=== PATIENT | male | born 1950 | race Caucasian/White ===

== ENCOUNTER → 2016-04-04 | Outpatient (CLI) | payer OTHER ==
[~2016-04-04] MED LIST: GADOBUTROL 15 MMOL/15 ML (GADAVIST) VIAL IV ONE
[2016-04-04 12:11] LABS: BLOOD UREA NITROGEN 18 MG/DL (7-18); BUN/CREATININE RATIO 19; CREATININE SERUM 0.95 MG/DL (0.60-1.30); GFR ESTIMATED > 60
--- NOTE | 2016-04-04 19:06 | Diagnostic Imaging Report ---
PROCEDURE: MR imaging of the brain with and without contrast. TECHNIQUE: Multiplanar, multisequence MR imaging of the brain was performed with and without contrast. INDICATION: Right-sided headache. 11 mL of Gadovist is administered intravenously. FINDINGS: There is no diffusion restriction to suggest an acute infarct or other diffusion abnormality. The brain parenchyma demonstrates mild periventricular and deep white matter T2 hyperintense lesions without mass effect and with no postcontrast enhancement. This is commonly seen at the patient's age and is likely secondary to chronic microvascular ischemic changes. There is no hydrocephalus. No extra-axial fluid collection seen. The central vascular flow-voids are preserved. The internal auditory canal and inner ear structures appear within normal limits. The pituitary gland is normal in size. No hypothalamic or pineal region mass. IMPRESSION: Relatively mild white matter findings described are likely secondary to chronic microvascular ischemic changes. No acute infarct. No enhancing mass. Dictated by: Dictated on workstation # [id number]
== END ==
LOC: RAD 11:17
PROVIDERS: ATTEND Family Medicine
DX: R51 Headache (principal)
CPT/HCPCS: 36415; 70553; 82565; 84520

== ENCOUNTER 2017-09-02 08:15 | Outpatient (CLI) | payer MEDICARE, OTHER ==
[~2017-09-02] VITALS: Ht 180.3 cm; Wt 96.6 kg
[2017-09-02 08:26] VITALS: BP 116/71
[2017-09-02 09:06] LABS: BASOPHILS % (AUTO) 0 % (0-10); EOSINOPHILS # (AUTO) 0.1 10^3/uL (0.0-0.3); EOSINOPHILS % (AUTO) 2 % (0-10); HEMATOCRIT 42 % (40-54); HEMOGLOBIN 13.9 G/DL (13.3-17.7); LYMPHOCYTES # (AUTO) 1.6 X 10^3 (1.0-4.0); LYMPHOCYTES % (AUTO) 29 % (12-44); MEAN CORPUSCULAR HEMOGLOBIN 30 PG (25-34); MEAN CORPUSCULAR HGB CONC 33 G/DL (32-36); MEAN CORPUSCULAR VOLUME 90 FL (80-99); MEAN PLATELET VOLUME 9.6 FL (7.4-10.4); MONOCYTES # (AUTO) 0.6 X 10^3 (0.0-1.0); MONOCYTES % (AUTO) 10 % (0-12); NEUTROPHILS # (AUTO) 3.3 X 10^3 (1.8-7.8); NEUTROPHILS % (AUTO) 59 % (42-75); PLATELET COUNT 225 10^3/uL (130-400); RED BLOOD COUNT 4.64 10^6/uL (4.35-5.85); RED CELL DISTRIBUTION WIDTH 14.5 % (10.0-14.5); WHITE BLOOD COUNT 5.6 10^3/uL (4.3-11.0)
[2017-09-02] MEDS ORDERED: CARV12.53 PO (09:11)
[2017-09-02] MEDS ORDERED: INDO50CA PO (09:11)
[2017-09-02] MEDS ORDERED: RIVA20TA PO (09:11)
[2017-09-02] MEDS ORDERED: LISI-552 PO (09:11)
[2017-09-02] MEDS ORDERED: CANA100T PO (09:11)
[2017-09-02] MEDS ORDERED: MULT1CAP27 PO (09:11)
[2017-09-02] MEDS ORDERED: SIMV20TA3 PO (09:11)
[2017-09-02] MEDS ORDERED: SPIR25TA3 PO (09:11)
[2017-09-02] MEDS ORDERED: ASPI-586 PO (09:11)
[2017-09-02] MEDS ORDERED: ANTI1CAP2 PO (09:11)
[2017-09-02] MEDS ORDERED: METF10002 PO (09:11)
[2017-09-02 09:26] LABS: BUN/CREATININE RATIO 18; CARBON DIOXIDE 23 MMOL/L (21-32); CHLORIDE 111 MMOL/L (98-107); CREATININE SERUM 0.83 MG/DL (0.60-1.30); GFR ESTIMATED > 60; GLUCOSE 113 MG/DL (70-105); POTASSIUM 4.3 MMOL/L (3.6-5.0); SODIUM 143 MMOL/L (135-145)
--- NOTE | 2017-09-02 13:30 | Diagnostic Imaging Report ---
INDICATION: Preoperative evaluation prior to bilateral temporal lesion excision. TECHNIQUE: Two-view chest at 09:18 a.m. CORRELATION STUDY: None. FINDINGS: Heart size is borderline enlarged. Mild calcification of the thoracic aorta. Vasculature within normal limits. Lung rutledge are slightly hyperinflated but overall clear. There does appear to be very slight right lung volume loss with some atelectasis at the right lung base. Bridging osteophytes and degenerative changes in the thoracic spine. IMPRESSION: 1. No radiographic evidence for acute abnormality of the chest. Lung rutledge are slightly hyperinflated. Exception is slight atelectasis suggested about the right middle lobe. Etiology indeterminate. However, this does appear to be changed from prior CT imaging of 2012. Central obstructive process while considered less likely is not excluded. Short-term follow-up two-view chest imaging recommended. Dictated by: Dictated on workstation # [id number]
[2017-09-05] MEDS ORDERED: CEPH-507 PO (11:54)
[2017-09-05] MEDS ORDERED: HYDR-3812 PO (11:54)
[2017-09-05] MEDS ORDERED: MUPI1OIN5 NS (11:54)
== END 2017-09-02 09:00 | disposition home or self-care (01) ==
LOC: PREOP 08:15
PROVIDERS: ATTEND Otolaryngology Otolaryngology/Facial Plastic Surgery
DX: Z01.818 Encounter for other preprocedural examination (principal)
CPT/HCPCS: 36415; 71046; 80048; 85025; 87081; 93005

== ENCOUNTER → 2017-10-15 | Outpatient (CLI) | payer MEDICARE, OTHER ==
[~2017-10-15] MED LIST changes: +ANTI1CAP2 PO; +ASPI-586 PO; +CANA100T PO; +CARV12.53 PO; +CEPH-507 PO; -GADOBUTROL 15 MMOL/15 ML (GADAVIST) VIAL IV ONE; +HYDR-3812 PO; +INDO50CA11 PO; +LISI-552 PO; +METF10002 PO; +MULT1CAP27 PO; +MUPI1OIN5 NS; +RIVA20TA PO; +SIMV20TA3 PO; +SPIR25TA5 PO
--- NOTE | 2017-10-15 17:22 | Diagnostic Imaging Report ---
INDICATION: Atelectatic changes in right middle lobe seen on previous chest of 09/02/2017, follow-up study. PA and lateral chest obtained. Heart and mediastinal silhouette are normal in appearance. The lungs appear clear. There is no focal infiltrate, pneumothorax, or pleural fluid. Density in the right middle lobe anteriorly is unchanged and may be due to a prominent fat pad. IMPRESSION: No acute process in the chest. Dictated by: Dictated on workstation # [id number]
== END ==
LOC: RAD 15:52
PROVIDERS: ATTEND Otolaryngology Otolaryngology/Facial Plastic Surgery
DX: J98.11 Atelectasis (principal)
CPT/HCPCS: 71046

== ENCOUNTER → 2017-10-21 | Outpatient (CLI) | payer MEDICARE, OTHER ==
[~2017-10-21] MED LIST changes: +BARIUM SUSPENSION 2.1% (VANILLA SILQ) 450 ML PO ONE; +CATHETER FLUSH 10 ML SYR IV PRN; +CATHETER FLUSH 10 ML SYR IV SCH; +IOHEXOL 350 MG/ML 100 ML (OMNIPAQUE 350) VIAL IV ONE; +NS 100 ML (IVPB) BAG IV ONE
[2017-10-21 12:12] LABS: BUN/CREATININE RATIO 21; CREATININE SERUM 0.72 MG/DL (0.60-1.30); GFR ESTIMATED > 60
--- NOTE | 2017-10-21 12:56 | Diagnostic Imaging Report ---
PROCEDURE: CT abdomen and pelvis with contrast. TECHNIQUE: Multiple contiguous axial images were obtained through the abdomen and pelvis after administration of intravenous contrast. INDICATION: Prostate carcinoma. Comparison is made with prior CT from 06/06/2011. FINDINGS: The lung bases are clear. No discrete liver mass is identified. The gallbladder is unremarkable. The pancreas and spleen are unremarkable. No adrenal mass is identified. Multiple nonobstructing calculi in the left kidney are seen, largest approximately 6 mm. No hydronephrosis is identified. No ureteral calculi are detected. Aorta is non-aneurysmal. There appears to be sigmoid diverticulosis without evidence of acute diverticulitis. The bladder is decompressed. Prostate is mildly enlarged but no discrete mass is seen. No pelvic lymphadenopathy is identified. Bony structures are unremarkable. No definite osteoblastic lesion is seen. IMPRESSION: 1. Nonobstructing left nephrolithiasis. 2. No evidence of abdominal or pelvic lymphadenopathy or metastatic disease. 3. Uncomplicated diverticulosis. Dictated by: Dictated on workstation # [id number]
--- NOTE | 2017-10-21 15:56 | Diagnostic Imaging Report ---
INDICATION: Prostate carcinoma. TECHNIQUE: Patient was administered 25.4 mCi technetium 99m MDP intravenously and whole-body imaging was performed after a three-hour delay. COMPARISON: No prior bone scans are available for comparison. FINDINGS: Normal uptake of activity by the axial and appendicular skeleton is seen. There is uptake by both kidneys with excretion into the urinary bladder. There is some uptake involving the left ankle. Patient reportedly had a recent ankle injury. No abnormal foci are seen to suggest osseous metastatic disease. IMPRESSION: No scintigraphic evidence of osseous metastatic disease. Dictated by: Dictated on workstation # [id number]
== END ==
LOC: CARD 11:43
PROVIDERS: ATTEND Urology
DX: C61 Malignant neoplasm of prostate (principal); N20.0 Calculus of kidney; K57.30 Diverticulosis of large intestine without perforation or abscess without bleeding
CPT/HCPCS: 36415; 74177; 78306; 82565; 84520

== ENCOUNTER 2017-11-28 08:25 | Outpatient (RCR) | payer MEDICARE, OTHER ==
[~2017-11-28 08:25] MED LIST changes: -BARIUM SUSPENSION 2.1% (VANILLA SILQ) 450 ML PO ONE; -CATHETER FLUSH 10 ML SYR IV PRN; -CATHETER FLUSH 10 ML SYR IV SCH; -IOHEXOL 350 MG/ML 100 ML (OMNIPAQUE 350) VIAL IV ONE; +METF-399 PO; -METF10002 PO; -NS 100 ML (IVPB) BAG IV ONE
== END 2017-12-14 | disposition home or self-care (01) ==
LOC: ONC 08:25
PROVIDERS: ATTEND Radiology Radiation Oncology
DX: C61 Malignant neoplasm of prostate (principal)
CPT/HCPCS: 76873; 99205

== ENCOUNTER 2017-12-25 09:52 | Outpatient (CLI) | payer MEDICARE, OTHER ==
[~2017-12-25] VITALS: Ht 180.3 cm; Wt 88.0 kg
[2017-12-25] MEDS ORDERED: RIVA20TA PO (10:09)
[2017-12-25] MEDS ORDERED: NAPR-915 PO (10:09)
[2017-12-25 10:30] VITALS: BP 107/69
== END 2017-12-25 10:20 | disposition home or self-care (01) ==
LOC: PREOP 09:52
PROVIDERS: ATTEND Urology
DX: Z01.818 Encounter for other preprocedural examination (principal)
CPT/HCPCS: 87081

== ENCOUNTER 2017-12-31 06:00 | Day surgery (SDC) | payer MEDICARE, OTHER ==
[~2017-12-31] VITALS: Ht 180.3 cm; Wt 88.0 kg
[~2017-12-31 06:00] MED LIST changes: +NAPR-915 PO
[2017-12-31 06:20] VITALS: BP 127/101
[2017-12-31] MEDS ORDERED: LEVOFLOXACIN 500 MG/100 ML IV 100 ML IV ONE (06:30)
[2017-12-31] MEDS ORDERED: LEVOFLOXACIN 500 MG/100 ML IV 100 ML ONE (06:35)
[2017-12-31] MEDS: LACTATED RINGERS 1,000 ML IV PRN ×2 (06:36→08:15)
[2017-12-31] MEDS ORDERED: SEVOFLURANE (ULTANE) 15 ML INHAL SOLN ONE ×2 (06:48→08:49)
[2017-12-31] MEDS ORDERED: proPOfol 200 MG/20 ML (DIPRIVAN) VIAL IV ONE (06:48)
[2017-12-31] MEDS ORDERED: fentaNYL INJECTION 100 MCG/2 ML AMP ONE (06:48)
[2017-12-31] MEDS ORDERED: LIDOCAINE PF 2% 5 ML (XYLOCAINE) VIAL ONE (06:48)
[2017-12-31] MEDS ORDERED: ONDANSETRON 4 MG/2 ML (SDV) Z0FRAN ONE (06:48)
[2017-12-31] MEDS ORDERED: MIDAZOLAM 2 MG/2 ML (VERSED) VIAL ONE (06:49)
--- NOTE | 2017-12-31 07:16 | Progress Note-Pre Operative ---
Pre-Operative Progress Note H&P Reviewed The H&P was reviewed, patient examined and no changes noted. Date Seen by Provider: Dec 31, 2017 Time Seen by Provider: 07:16 Date H&P Reviewed: Dec 31, 2017 Time H&P Reviewed: 07:16 Pre-Operative Diagnosis: CA PROSTATE JULIETTE SHAFFER MD Dec 31, 2017 7:16 am
--- NOTE | 2017-12-31 07:18 | Progress Note-Post Operative ---
Post-Operative Progess Note Surgeon (s)/Machine Welder (s) Surgeon BRYAN MARTINEZ M.D, JULIETTE SHAFFER MD Machine Welder: NONE Pre-Operative Diagnosis CA PROSTATE Post-Operative Diagnosis SAME Procedure & Operative Findings Date of Procedure 12/31/17 Procedure Performed/Findings BRACHYTHERAPY, SPACE OAR, CYSTOGRAM Anesthesia Type GENERAL Estimated Blood Loss Estimated blood loss (mL): NEGLIGBLE Specimens/Packing Specimens Removed NONE Packing: NONE JULIETTE SHAFFER MD Dec 31, 2017 7:18 am
--- NOTE | 2017-12-31 07:22 | Discharge Inst-Urology ---
Discharge Inst-Urology Discharge Medications New, Converted, or Re-newed RX: RX on Chart Patient Instructions/Follow Up Plan Patient to come to office Friday 9am to [facility]. Please make appointment to been seen in office in 2 weeks. Friday, if no bleeding, may resume Xarelto Showers, no bath Keep bowels soft and moving Increase oral fluids for 48 hours and then as needed. Diet and Activity as tolerated. If questions or concerns contact your physician Or seek help at emergency department. JULIETTE SHAFFER MD Dec 31, 2017 7:22 am
[2017-12-31] MEDS ORDERED: ROCURONIUM 10 MG/ML 5 ML SYRINGE IV ONE (08:23)
[2017-12-31] MEDS ORDERED: PHENYLEPHRINE 100 MCG/ML 10 ML (ANESTHESIA) SYR ONE (08:23)
[2017-12-31] MEDS ORDERED: LACTATED RINGERS 1,000 ML IV ONE (08:49)
[2017-12-31] MEDS ORDERED: CIPR-225 PO (09:33)
[2017-12-31] MEDS ORDERED: PHEN-640 PO (09:33)
[2017-12-31] MEDS ORDERED: HYDR-3870 PO (09:33)
[2017-12-31] MEDS ORDERED: MEPERIDINE (DEMEROL) INJ 50 MG/ML IVP ONE (09:45)
[2017-12-31] MEDS ORDERED: ONDANSETRON 4 MG/2 ML (SDV) Z0FRAN IVP PRN (09:45)
[2017-12-31] MEDS ORDERED: morphine INJ 10 MG/ML 1ML (SYR OR VIAL) IVP ONE (09:45)
--- NOTE | 2017-12-31 10:27 | Consultation-Cardiology ---
HPI-Cardiology Cardiology Consultation: Date of Consultation 12/31/17 Date of Admission Attending Physician Kaushik Lewis MD Admitting Physician Johnathan Kelly DO Consulting Physician Dimple LO MD HPI: Time Seen by a Provider: 10:24 Chief Complaint: Atrial fibrillation This is a 67-year-old gentleman who has history of chronic atrial fibrillation on carvedilol and Xarelto. The patient also has history of hypertension. Cardiology was consulted for atrial fibrillation and oral anticoagulation management. The patient underwent brachy therapy for prostate cancer today. He denies any palpitations, syncope, near-syncope, chest pain or shortness of breath. Review of Systems-Cardiology Review of Systems Constitutional: As described under HPI; No As described under HPI, No no symptoms reported, No chills, No fever, No lightheadedness Eyes: No As described under HPI, No no symptoms reported, No blindness, No blurred vision, No contact lenses, No drainage, No decreased acuity, No foreign body sensation, No pain, No vision change Ears/Nose/Throat: No As described under HPI, No no symptoms reported, No chronic hearing loss, No ear discharge, No ear pain, No nasal drainage, No ulcerations Respiratory: No no symptoms reported; As described under HPI; No As described under HPI, No cough, No orthopnea, No shortness of breath, No SOB with excertion Cardiovascular: No no symptoms reported; As described under HPI; No As described under HPI, No chest pain, No edema, No irregular heart rate, No lightheadedness, No palpitations Gastrointestinal: No no symptoms reported, No As described under HPI, No abdomen distended, No abdominal pain, No blood streaked bowels, No constipation , No diarrhea, No nausea, No vomiting, No stool coloration changes Genitourinary: No As described under HPI, No burning, No dysuria, No discharge , No frequency, No flank pain, No hematuria, No urgency Skin: No rash, No skin related problems, No ulcerations Psychiatric/Neurological: No anxiety, No depression, No seizure, No focal weakness, No syncope Hematologic: No bleeding abnormalities [id number] Hx Patient Social History Alcohol Use: Rarely Uses Recreational Drug Use: No Smoking Status: Never a Smoker Recent Foreign Travel: No Recent Infectious Disease Expo: No Immunizations Up To Date Tetanus Booster (TDap): Less than 5yrs Past Medical History PMH As described under Assessment. Allergies and Home Medications Allergies Coded Allergies: No Known Drug Allergies (Unverified , 04/04/16) Home Medications Antiox#10/Om3/Dha/Epa/Lut/Zeax 1 Each Capsule, 1 EACH PO DAILY, (Reported) Canagliflozin 100 Mg Tablet, 100 MG PO DAILY, (Reported) Carvedilol 12.5 Mg Tablet, 12.5 MG PO BID, (Reported) Ciprofloxacin HCl 500 Mg Tablet, 500 MG PO BID Prescribed by: GABRIELA KIDD on 12/31/17932 Hydrocodone/Acetaminophen 1 Each Tablet, 1-2 EACH PO Q4-6HR PRN for PAIN- MODERATE Prescribed by: GABRIELA KIDD on 12/31/17932 Lisinopril 20 Mg Tablet, 20 MG PO DAILY, (Reported) Metformin HCl 1,000 Mg Tablet, 1,000 MG PO BID, (Reported) Multivitamin 1 Each Capsule, 1 EACH PO DAILY, (Reported) Naproxen 500 Mg Tablet, 500 MG PO BID, (Reported) Phenazopyridine HCl 200 Mg Tablet, 1 TAB PO TID Prescribed by: GABRIELA KIDD on 12/31/17932 Simvastatin 20 Mg Tablet, 20 MG PO DAILY, (Reported) Spironolactone 25 Mg Tablet, 25 MG PO DAILY, (Reported) Patient Home Medication List Home Medication List Reviewed: Yes Physical Exam-Cardiology Physical Exam Vital Signs/I&O 12/31/17 12/31/17 12/31/17 12/31/17 06:20 10:30 11:00 11:30 Temp 97.3 97.8 97.3 97.0 Pulse 85 63 75 84 Resp 18 18 16 18 B/P (MAP) 127/101 (110) 125/77 132/70 120/89 Pulse Ox 98 98 97 99 O2 Delivery Room Air Room Air Room Air Room Air 12/31/17 11:30 Pulse 84 Resp 18 B/P (MAP) 120/89 Pulse Ox 99 O2 Delivery Room Air Capillary Refill : Constitutional: appears stated age; No apparent distress; well-developed, well- nourished HEENT: PERRL; No normal ENT inspection, No TMs normal, No pharynx normal, No scleral icterus (R), No scleral icterus (L), No pale conjunctivae (R), No pale conjunctivae (L), No photophobia, No TM abnormal (R), No TM abnormal (L), No pharyngeal erythema, No tonsillar exudate, No other, No discharge, No EOMI; hearing is well preserved; No hard of hearing; oral hygience is good; No ulceration, No xanthelasmas are seen Neck: No carotid bruit; carotid pulses are 2 + bilaterally Respiratory: chest is bilaterally symmetric, lungs clear to auscultation Cardiovascular: No regular rate-rhythm; irregularly irregular; No extra beats, No parasternal heave is noted, No JVD, No edema, No bradycardia, No tachycardia , No point of maximal impulse, No cardiac thrills are palpable; S1 and S2; No gallop/S3, No gallop/S4, No diastolic murmur, No systolic murmur, No friction rub, No click, No other Gastrointestinal: No tender, No soft, No round, No distended, No pulsatile mass , No organomegaly, No guarding, No rebound, No tenderness, No hernia, No mass, No audible bowel sounds, No abnormal bowel sounds, No abdominal bruits, No spleenomegaly, No other Rectal: deferred Extremities: No normal range of motion, No non-tender, No normal inspection, No pedal edema, No calf tenderness, No normal capillary refill, No pelvis stable , No calf tenderness, No inflammation, No pedal edema, No slow capillary refill , No swelling, No other, No abrasion, No clubbing, No cyanosis, No ecchymosis, No laceration, No no lower extremity edema bilateral, No significant edema, No tenderness, No wound Neurologic/Psychiatric: no motor/sensory deficits, alert, normal mood/affect, oriented x 3, power is 5/5 both on sides Skin: No rash, No ulcerations Data Review Labs Laboratory Tests 12/31/17 06:17: Glucometer 104 ECG Impression ECG Initial ECG Impression: Atrial Fibrillation A/P-Cardiology Assessment/Admission Diagnosis Chronic Atrial Fibrillation, Hypertension, Prostate Cancer,s/p brachytherapy Plan Chronic AF: Hold Xarelto till friday since high risk of bleeding for the next 48 -72 hours. Good rate control. CHADVASC score of 3 for DM, Age, and HTN. However , since high risk of bleeding, will hold Xarelto. Explained at length to the patient about the rationale for holding xarelto. He understands and agrees. Discussed with both Dr Lewis and the RN. Continue Coreg for rate control. HTN- on BB. stable in the recovery area. Systolic BP 105mmhg. Prostate cancer - defer to Dr Lewis. Thank you for your consultation. Please call me if you have any questions. Anabella Lo MD, FACP, FACC, FSCAI, FHRS, CCDS Interventional Cardiology Cardiac Electrophysiology Vascular Medicine and Endovascular Interventions Dimple LO MD Dec 31, 2017 10:27
[2017-12-31 10:30] VITALS: BP 125/77
--- NOTE | 2017-12-31 10:44 | Diagnostic Imaging Report ---
INDICATION: Brachytherapy. FINDINGS: Fluoroscopy was provided during brachytherapy. 28 seconds of fluoroscopy was utilized. Images over the midline pelvis demonstrate multiple radiation seed implants within the prostate gland. IMPRESSION: Fluoroscopy during brachytherapy. Dictated by: Dictated on workstation # [id number]
[2017-12-31 11:00] VITALS: BP 132/70
[2017-12-31 11:30] VITALS: BP 120/89
--- NOTE | 2017-12-31 14:11 | Anesthesia-General Post-Op ---
General Patient Condition Mental Status/LOC: Same as Preop Cardiovascular: Satisfactory Nausea/Vomiting: Absent Respiratory: Satisfactory Pain: Controlled Complications: Absent Post Op Complications Complications None Follow Up Care/Instructions Patient Instructions None needed. Anesthesia/Patient Condition Patient Condition Patient is doing well, no complaints, stable vital signs, no apparent adverse anesthesia problems. No complications reported per nursing. MANDY HOANG CRNA Dec 31, 2017 14:10
== END 2017-12-31 12:08 | disposition home or self-care (01) ==
LOC: SDC 06:00
PROVIDERS: ATTEND Urology
DX: C61 Malignant neoplasm of prostate (principal); I48.2 Chronic atrial fibrillation; I10 Essential (primary) hypertension; E11.9 Type 2 diabetes mellitus without complications; Z79.01 Long term (current) use of anticoagulants; Z79.899 Other long term (current) drug therapy
CPT/HCPCS: 76965; 77290; 77318; 77332; 77370; 77470; 77778; 82962; 93005

== ENCOUNTER 2018-02-02 09:48 | Outpatient (RCR) | payer MEDICARE, OTHER ==
[~2018-02-02 09:48] MED LIST changes: +CIPR-225 PO; +HYDR-3870 PO; +PHEN-640 PO
== END 2018-03-29 | disposition home or self-care (01) ==
LOC: ONC 09:48
PROVIDERS: ATTEND Radiology Radiation Oncology
DX: C61 Malignant neoplasm of prostate (principal)
CPT/HCPCS: 77290; 77331

== ENCOUNTER 2020-02-22 05:34 | Outpatient (RCR) | payer MEDICARE, OTHER ==
[~2020-02-22] VITALS: Ht 180 cm; Wt 97.7 kg
[~2020-02-22 05:34] MED LIST changes: +ACHD5005 PO; -HYDR-3812 PO; -INDO50CA11 PO; +INDO50CA82 PO; -RIVA20TA PO; +RIVA20TA2 PO; +SIMV20TA26 PO; -SIMV20TA3 PO
== END 2020-02-22 13:10 | disposition home or self-care (01) ==
LOC: PREOP 05:34
PROVIDERS: ATTEND Surgery
DX: Z01.812 Encounter for preprocedural laboratory examination (principal); K42.9 Umbilical hernia without obstruction or gangrene; Z20.828 Contact with and (suspected) exposure to other viral communicable diseases
CPT/HCPCS: 87635

== ENCOUNTER 2020-02-24 12:01 | Day surgery (SDC) | payer MEDICARE, OTHER ==
[~2020-02-24] VITALS: Ht 180 cm; Wt 97.7 kg
[2020-02-24] VITALS (12 sets, daily range): BP systolic 96–115; BP diastolic 68–86
[2020-02-24] MEDS ORDERED: ceFAZolin 2 GM IV Premixed 50 ML ONE (12:40)
[2020-02-24] MEDS ORDERED: ceFAZolin 2 GM IV Premixed 50 ML IV ONE (13:00)
[2020-02-24] MEDS ORDERED: LACTATED RINGERS 1,000 ML IV PRN (13:00)
[2020-02-24] MEDS ORDERED: SILD25TA9 PO (13:21)
[2020-02-24] MEDS ORDERED: RIVA20TA PO (13:21)
[2020-02-24] MEDS ORDERED: ASPI-999 PO (13:21)
[2020-02-24] MEDS ORDERED: TMSL.4C PO (13:21)
[2020-02-24] MEDS ORDERED: ROCURONIUM 10 MG/ML 5 ML SYRINGE IV ONE (13:38)
[2020-02-24] MEDS ORDERED: ONDANSETRON 4 MG/2 ML (SDV) Z0FRAN ONE (13:38)
[2020-02-24] MEDS ORDERED: fentaNYL INJECTION 100 MCG/2 ML AMP ONE (13:38)
[2020-02-24] MEDS ORDERED: MIDAZOLAM 2 MG/2 ML (VERSED) VIAL ONE (13:38)
[2020-02-24] MEDS ORDERED: LIDOCAINE PF 2% 5 ML (XYLOCAINE) VIAL ONE (13:38)
[2020-02-24] MEDS ORDERED: proPOfol 200 MG/20 ML (DIPRIVAN) VIAL IV ONE (13:38)
[2020-02-24] MEDS ORDERED: GLYCOPYRROLATE 0.2 MG/ML (ROBINUL) 2 ML VIAL ONE (13:39)
[2020-02-24] MEDS ORDERED: SEVOFLURANE (ULTANE) 15 ML INHAL SOLN ONE (13:39)
[2020-02-24] MEDS ORDERED: NEOSTIGMINE 3 MG/3 ML VIAL ONE (13:39)
--- NOTE | 2020-02-24 13:50 | Progress Note-Pre Operative ---
Pre-Operative Progress Note H&P Reviewed The H&P was reviewed, patient examined and no changes noted. Date Seen by Provider: Feb 24, 2020 Time Seen by Provider: 13:00 Date H&P Reviewed: Feb 24, 2020 Time H&P Reviewed: 13:00 Pre-Operative Diagnosis: reducible umbilical hernia BALTAZAR PRYOR MD Feb 24, 2020 13:50
[2020-02-24] MEDS ORDERED: HYDR-3817 PO (13:51)
--- NOTE | 2020-02-24 13:52 | Discharge Inst-Surgical ---
D/C Lap Instructions-ROYA New, Converted, or Re-Newed RX: RX on Chart Follow Up Appt in 2 weeks Activity as tolerated No driving for 24 hours No driving while on pain medications Incentive Spirometry use every 2 hours while awake Regular Diet Symptoms to Report: Fever over 101 degree F, Nausea/Vomiting Infection Signs and Symptoms to report: Increased redness, Foul odor of wound, Increased drainage Bathing instructions: May shower Operative Area Clean/Dry; Keep incision clean/dry If any problems/questions: Contact your physician or go to Emergency Room BALTAZAR PRYOR MD Feb 24, 2020 13:52
[2020-02-24] MEDS ORDERED: morphine INJ 10 MG/ML 1ML (SYR OR VIAL) IVP PRN ×2 (14:00)
[2020-02-24] MEDS ORDERED: ONDANSETRON 4 MG/2 ML (SDV) Z0FRAN IVP PRN ×2 (14:00→16:15)
[2020-02-24] MEDS ORDERED: ACETAMINOPHEN 325 MG TABLET PO PRN (14:00)
[2020-02-24] MEDS ORDERED: oxyCODONE/APAP 5/325MG (PERCOCET 5) TABLET PO PRN (14:00)
[2020-02-24] MEDS ORDERED: LIDOCAINE/EPI 1%-1:100,000 (XYLOCAINE) 20ML ONE (14:09)
[2020-02-24] MEDS ORDERED: LIDOCAINE/EPI 1%-1:200,000 (XYLOCAINE) 30 ML VIAL ONE (14:09)
[2020-02-24] MEDS ORDERED: PHENYLEPHRINE 100 MCG/ML 10 ML (ANESTHESIA) SYR ONE (15:41)
--- NOTE | 2020-02-24 16:07 | Progress Note-Post Operative ---
Post-Operative Progess Note Surgeon (s)/Customer Response Representative (s) Surgeon BALTAZAR PRYOR MD Customer Response Representative: harrison mendez DUPLICATE MAKER Pre-Operative Diagnosis reducible umbilical hernia Post-Operative Diagnosis same Procedure & Operative Findings Date of Procedure 02/24/20 Procedure Performed/Findings open umbilical hernia repair with mesh. Anesthesia Type get Estimated Blood Loss Estimated blood loss (mL): minimal Specimens/Packing Specimens Removed none BALTAZAR PRYOR MD Feb 24, 2020 16:07
--- NOTE | 2020-02-24 16:14 | Anesthesia-General Post-Op ---
General Patient Condition Mental Status/LOC: Same as Preop Cardiovascular: Satisfactory Nausea/Vomiting: Absent Respiratory: Satisfactory Pain: Controlled Complications: Absent Post Op Complications Complications None Follow Up Care/Instructions Patient Instructions None needed. Anesthesia/Patient Condition Patient Condition Patient is doing well, no complaints, stable vital signs, no apparent adverse anesthesia problems. No complications reported per nursing. RONEN FERGUSON CRNA Feb 24, 2020 16:14
[2020-02-24] MEDS ORDERED: morphine INJ 10 MG/ML 1ML (SYR OR VIAL) IVP ONE (16:15)
--- NOTE | 2020-03-07 00:01 | OPERATIVE REPORT ---
DATE OF SERVICE: 02/24/2020 ATTENDING PRIMARY CARE PHYSICIAN: Johnathan Kelly DO PREOPERATIVE DIAGNOSIS: Symptomatic reducible umbilical hernia. POSTOPERATIVE DIAGNOSIS: Symptomatic reducible umbilical hernia with the fascial defect approximately 2.5 cm in size. PROCEDURE: Open umbilical hernia repair with mesh. SURGEON: Baltazar Pryor MD. PLATE SHOP HELPER: Wes Mariee APRN ANESTHESIA: General endotracheal. ESTIMATED BLOOD LOSS: Minimal. FINDINGS: Omentum within the hernia sac. DISPOSITION: The patient tolerated the procedure well. INDICATIONS: The patient is a 69-year-old male who was referred over to us for an outpouching as well as pain in the umbilical region for the past three years. He states that over time, the lesion has grown larger in size and does cause increased discomfort. He is otherwise having normal bowel movements and eating well. DESCRIPTION OF PROCEDURE: The patient was brought to the operating room, laid supine on the table. After adequate IV pain and sedative medications and general endotracheal intubation, the abdomen was prepped and draped in standard surgical fashion. A 0.5% Marcaine with epinephrine was used to anesthetize overlying skin along the supraumbilical rim. A crescent-shaped skin incision was made using 15 blade. The subcutaneous tissue was then dissected using electrocautery. The hernia sac was then identified and completely dissected out using blunt dissection, cautery as well as Metzenbaum scissors. We proceeded with our dissection until we reached the fascia. A circumferential area was cleared off the fascia as well using the same technique. The hernia sac was then opened using Metzenbaum scissors with only omentum within the hernia sac. The hernia sac was then fully excised using electrocautery under direct visualization. A 6.4 cm round coated polypropylene mesh was then placed into the defect and sutured to the fascia in a concentric transfascial manner using interrupted 0 Prolene sutures with visualization of good hemostasis. Subcutaneous tissue was then reapproximated using 3-0 Vicryl interrupted sutures and the skin was closed using 4-0 Monocryl running subcuticular suture. Wound was then cleaned and covered with Dermabond. The umbilicus was then filled with tonsil sponges followed by sterile 4 x 4, followed by large Op-Site and an abdominal binder. The patient tolerated the procedure well. We will start IV normal pain medication as well as a clear liquid diet. Once he is tolerating clears, has good pain control with oral pain medications, ambulating well, we will discharge him home. We will also recommend no heavy lifting or exertion, especially for the first 2 weeks and then slowly incorporate lifting, exertion in a stepwise manner until he reaches six weeks. Job ID: [id number] DocumentID: [id number] Dictated Date: 03/06/2020 18:14:00 Card Puncher Date: 03/07/2020 00:00:28 Dictated By: BALTAZAR PRYOR MD
== END 2020-02-24 18:20 ==
LOC: SDC 12:01
PROVIDERS: ATTEND Surgery
DX: K42.9 Umbilical hernia without obstruction or gangrene (principal); I10 Essential (primary) hypertension; I48.91 Unspecified atrial fibrillation; E11.9 Type 2 diabetes mellitus without complications; M19.90 Unspecified osteoarthritis, unspecified site; E78.00 Pure hypercholesterolemia, unspecified; N40.0 Benign prostatic hyperplasia without lower urinary tract symptoms; Z79.84 Long term (current) use of oral hypoglycemic drugs; Z79.82 Long term (current) use of aspirin; Z79.899 Other long term (current) drug therapy; Z85.46 Personal history of malignant neoplasm of prostate; Z80.1 Family history of malignant neoplasm of trachea, bronchus and lung; Z80.49 Family history of malignant neoplasm of other genital organs
CPT/HCPCS: 49585; 82962; 87081; C1781

== ENCOUNTER 2021-10-17 13:26 | Inpatient (IN) | payer MEDICARE, OTHER ==
[~2021-10-17] VITALS: Ht 180.3 cm; Wt 91.9 kg
--- NOTE | 2021-10-17 12:11 | PM&R Post Admission Assessment ---
PM&R HP Date of Visit: Oct 17, 2021 Time of Visit: 18:30 History of Present Illness CC: Subdural hematoma s/p evaluation HPI: This is a 71yoWM clinic patient of Dr Kelly who presented to [facility] from [facility] s/p elijah holes by Dr Garber due to bilateral SDH. Xarelto was maintained and now on hold. 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 No BM x 2 weeks. No pain reported except TORREZ. PLOF was independent. Hospitalist Progress Note Note date:10/17/2021 ADMIT DATE10/09/2021 HospitalLOS: 8 days Primary admission Dx-Acute on chronic intracranial subdural hematoma Subjective: patient is awake and alert.Denies any new symptoms. Overnight he had 6 beats of V tach. Asymptomatic and remained asleep. Chief Complaint-Acute on chronic intracranial subdural hematoma HPI-Jigarvladimir Valverdetashi a 71 y.o.maleadmitted to the hospital with headache and found to have bilateral subdural hematoma. Neurosurgery was consulted and bilateral elijah holes were placed for SDH. Transferred out of ICU on 10/15. ROS Constitutional-No fever, night sweats, fatigue EYE-no blurred vision, double vision ENT-, no difficulty swallowing, no symptoms of oral candidiasis Lungs-no complaint of respiratory distress, no wheezing CV-no chest pain, palpitation GI-no nausea, vomiting, diarrhea, no abdominal pain -no difficulty voiding, no flank pain MS-no significant edema Remainder of 10 point review of system is negative Objective BP (!) 136/99 (BP Location: Right arm, Patient Position (BP): Supine) | Pulse 80 | Temp 98.2 F (36.8 C) (Oral) | Resp 18 | Ht 5' 11" (1.803 m) | Wt 97.7 kg (215 lb 6.2 oz) | SpO2 96% | BMI 30.04 kg/m The range of BP in the last 24 hours is:BP: (124-142)/(71-99) Intake/Output Summary (Last 24 hours) at 10/17/2021 1122 Last data filed at 10/17/2021 0632 Gross per 24 hour Intake 480 ml Output 1775 ml Net -1295 ml Physical Exam Lung-clear to auscultation bilaterally. Heart-RRR Abd-BS active, non tender Ext-no pedal edema noted. Reviewed All recent data in "lab, imaging, CV and pathology" section All pertinent notes under the "all notes" section. Current orders, adjustments made as appropriate. Impression Principle problem Acute on chronic intracranial subdural hematoma Current Active Hospital Problem List Active Hospital Problems Diagnosis A-fib Acute on chronic intracranial subdural hematoma Coagulopathy Type 2 diabetes mellitus without complication, without long-term current use o f insulin Permanent atrial fibrillation Essential hypertension Resolved Hospital Problems No resolved problems to display. Discussion/Plan 1. DM2: same management. Nothing new to add. 2. Hypertension: same management. Nothing to add. 3. Atrial fibrillation:cardizem was added during this admission. Will prescribe cardizem up on discharge. 4. NSVT: replace magnesium. 5. Subdural hematoma: s/p surgery. Anticoagulation needs to be held until cleared by Neurosurgery as outpatient. Will prescribe cardizem up on discharge. Will stop tadalafil as he has not received it in the hospital and if BP is high should need to be added back. Patient can be discharged to rehab from medical standpoint. Heather Nolasco MD,1:22 AM CC: S/p subdural hematoma evacuation HPI: 71yo M with a history of acute on chronic subdural hematoma admitted to rehab on 10/17/2021 with a chief complaint of s/p subdural hematoma evacuation. The patient experienced headache for 10 days prior to admission to [facility] on 10/09/2021. Surgery was completed at [facility] on 10/12/2021. Post-operatively the patient was noted to be doing well with significant improvement in headache pain. Patient is very pleasant to converse with. He was accompanied by his . PMH: Acute on Chronic Subdural Hematoma Arthritis AFib Rate controlled CAD Coagulopathy Prostate Cancer Claustrophobia Diabetes Glaucoma TORREZ Migraine HTN Hyperlipidemia Obstructive sleep apnea Prostate Disease PSH: Free skin graft on scalp Left thumb surgery Insertion of prostate radiation seed Left ankle total arthroplasty and gastroc recession of left LE ALL: Poison shady No known drug allergies No food allergies MEDS: Keppra tablet 500mg BID PO Senna 1 each BID PO Miralax 17gm packet BID PO Colace Capsule 100mg BID PO Zofran 4mg Q6H PRN PO Tylenol Tablet 650mg Q6H PRN PO Melatonin tablet 3mg HS PRN PO Imodium tablet 2mg PRN PO Robitussin 10ml Q4H PRN PO Fleet Enema 1 each BID PRN VA Enulose Oral Solution 10gm BID PRN PO Dulcolax Suppository 10mg PRN Daily Benadryl Tablet 25mg Q6H PO Calcium Carbonate 500mg TID PRN PO Xanax tablet 0.25mg Q8H PRN PO Tadalafil 5mg PO daily Aspirin 81mg 1 Tablet PO daily ICAPS 1 Tablet PO daily Carvedilol 12.5mg tablet BID PO Jardiance 10mg Tablet daily Lisinopril 20mg tablet PO daily Metformin 1,000mg tablet BID PO Multivitamin 1 tablet PO daily Xarelto 20mg tablet 20mg PO daily Simvastatin 20mg tablet PO daily Tamsulosin 0.4mg tablet PO daily Sildenafil 25mg tablet PO PRN daily SH: Never smoked Never used alcohol Never used drugs Patient is FH: Father HTN Mother HTN Brother HTN Diabetes Renal Cancer Sister Cancer- Unknown type ROS: Slight nausea from car ride No vomiting Last bowel movement reported by to be 10 days ago Patient reports he is very lightheaded No chest pain No pain with breathing No abdominal pain Incisions on head causing pain and slight headache OBJECTIVE Cardiovascular: Irregular rhythm. No chest pain. No cyanosis or clubbing of the fingers. Pulmonary: Lungs clear to ausculation bilaterally. No use of accessory muscles to breath. No pain with breathing. Abdomen: Normoactive bowel sounds present in all quadrants. Pain to deep palpation of the LLQ. Eye: EOMI. PERRLA. LE: Sensation intact bilaterally. No edema. 2+ dorsalis pedis pulses bilaterally Neuro: CN II-XII intact bilaterally. Incisions from surgery make it feel like there is a constant pressure and causing a slight headache. 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[employer]) Alcohol Use: Denies Use Alcohol Beverage of Choice: Beer 2nd Hand Smoke Exposure: No Recent Hopitalizations: No Immunizations Up To Date Tetanus Booster (TDap): Less than 5yrs Pediatric: No Date of Influenza Vaccine: Dec 20, 2019 Seasonal Allergies Seasonal Allergies: No Past Medical History Currently Using CPAP: No Currently Using BIPAP: No Cardiac: Atrial Fibrillation, High Cholesterol, Hypertension Neurological: Stroke Sexually Transmitted Disease: No HIV/AIDS: No Genitourinary: Prostate Problems, Kidney Stones Musculoskeletal: Arthritis Endocrine: Diabetes, Non-Insulin dep HEENT: Glaucoma Loss of Vision: Denies Hearing Impairment: Denies Cancer: Prostate Did You Recieve Any Treatments: Yes What Type of Treatment Did You: Radiation History of Blood Disorders: No Adverse Reaction to Blood Zhao: No (N/A) PM&R Allergy/Meds/Data Review Allergies Coded Allergies: No Known Drug Allergies (Unverified , 02/21/20) Home Medications Scheduled B2/Vit A,C & E/Lut/Zeaxanth/Mn (Icaps Tablet), 1 EACH PO DAILY, (Reported) Carvedilol (Carvedilol), 12.5 MG PO BID WITH MEALS, (Reported) Empagliflozin (Jardiance), 10 MG PO DAILY, (Reported) Levetiracetam (Levetiracetam), 500 MG PO BID, (Reported) Lisinopril (Lisinopril), 20 MG PO 1800 W/MEAL, (Reported) Metformin HCl (Metformin HCl), 1,000 MG PO BID WITH MEALS, (Reported) Multivitamin (Multivitamin), 1 EACH PO DAILY, (Reported) Simvastatin (Simvastatin), 20 MG PO 1800 W/MEAL, (Reported) Tadalafil (Tadalafil), 5 MG PO 1800 W/MEAL, (Reported) Tamsulosin HCl (Flomax), 0.4 MG PO DAILY, (Reported) Scheduled PRN Sildenafil Citrate (Viagra), 25 MG PO DAILY PRN for ED, (Reported) Discontinued Medications Antiox#10/Om3/Dha/Epa/Lut/Zeax (I-Caps with Lutein-[place] 3 Sfg), 1 EACH PO DAILY, (Reported) Discontinued Reason: No Longer Taking Aspirin (Aspirin), 81 MG PO DAILY, (Reported) Discontinued Reason: No Longer Taking Canagliflozin (Invokana), 100 MG PO DAILY, (Reported) Discontinued Reason: No Longer Taking Carvedilol (Carvedilol), 12.5 MG PO BID, (Reported) Discontinued Reason: No Longer Taking Hydrocodone/Acetaminophen (Hydrocodone-Acetamin 7.5-325), 1 EACH PO Q4H Discontinued Reason: No Longer Taking Multivitamin (Multivitamins), 1 EACH PO DAILY, (Reported) Discontinued Reason: No Longer Taking Rivaroxaban (Xarelto), 20 MG PO DAILY, (Reported) Discontinued Reason: No Longer Taking Sildenafil Citrate (Sildenafil Citrate), 25 MG PO DAILY, (Reported) Discontinued Reason: No Longer Taking Spironolactone (Spironolactone), 25 MG PO DAILY, (Reported) Discontinued Reason: No Longer Taking Current Medications Current Medications Reviewed Review of Systems Constitutional: see HPI, dizziness, malaise, weakness EENTM: no symptoms reported Respiratory: no symptoms reported Cardiovascular: no symptoms reported Gastrointestinal: no symptoms reported Genitourinary: no symptoms reported Musculoskeletal: back pain Skin: no symptoms reported Psychiatric/Neurological: No Symptoms Reported All Other Systems Reviewed Negative Unless Noted: Yes Physical Exam Physical Exam Vital Signs Capillary Refill : Height, Weight, BMI Height: 5'11.00" Weight: 194lbs. 0.0oz. [id number]; 30.15 BMI Method: General Appearance: No Apparent Distress, WD/WN, Chronically ill Eyes: Bilateral Eye Normal Inspection, Bilateral Eye PERRL HEENT: PERRL/EOMI, Normal ENT Inspection, Pharynx Normal Neck: Full Range of Motion, Normal Inspection, Non Tender, Supple, Carotid Bruit Respiratory: Chest Non Tender, Lungs Clear, Normal Breath Sounds, No Accessory Muscle Use, No Respiratory Distress Cardiovascular: Regular Rate, Rhythm, No Edema, No Gallop, No JVD, No Murmur, Normal Peripheral Pulses Gastrointestinal: Normal Bowel Sounds, No Organomegaly, No Pulsatile Mass, Non Tender, Soft Back: Normal Inspection, No CVA Tenderness, No Vertebral Tenderness Extremity: Normal Capillary Refill, Normal Inspection, Normal Range of Motion, Non Tender, No Calf Tenderness, No Pedal Edema Neurologic/Psychiatric: Alert, Oriented x3, Normal Mood/Affect, button reclaimer II-XII Norm as Tested, Abnormal Gait, Depressed Affect, Motor Weakness Skin: Normal Color, Warm/Dry, Other (incisions of scalp healing well) Lymphatic: No Adenopathy PM&R Medical Assessment & Plan REHAB/MEDICAL ASSESSMENT AND PLAN: REHAB IMPAIRMENT GROUP: Subdural hematoma ETIOLOGIC DIAGNOSIS: Subdural hematoma The comorbidities that impact the patients function and/or functional outcome by: previous AF, previous OAC, hematoma subdural type, fall risk REHAB PLAN: The patient is being admitted to our comprehensive inpatient rehabilitation facility and can tolerate the intensity of service consisting of at least: 180 minutes of therapy a day, 5 out of 7 days a week Rehab treatment will consist of: PT OT will focus on regaining on regaining function with use of assistive devices in order to return back to independent living The patient/family has a good understanding of our discharge process and will benefit from an interdisciplinary inpatient rehabilitation program. The patient has potential to make improvement and is in need of at least two of the following multidisciplinary therapies including but not limited to physical, occupational, speech, and prosthetics and orthotics. Additionally the patient will need services from respiratory, nutritional services, wound care, psychology, etc. (Customize this to each patient). Given the patients complex condition and risk of further medical complications, rehabilitation services cannot be safely or effectively provided at a lower level of care such as a nursing home facility. BARRIERS TO DISCHARGE: Subdural hematoma ESTIMATED LOS: 10 days DISPOSITION: Good RELEVANT CHANGES SINCE PREADMISSION SCREENING: I have compared the patients medical and functional status at the time of the preadmission screening and there are: no changes PROGNOSIS: Good REHABILITATION GOALS: 1. PT OT will focus on regaining on regaining function with use of assistive devices in order to return back to independent living All the above goals were reviewed with the patient and he/she is in agreement. By signing this document, I acknowledge that I have personally performed a full physical examination on this patient within 24 hours of admission to this inpatient rehabilitation facility and have determined the patient to be able to tolerate the above course of treatment at an intensive level for a reasonable period of time. I will be completing a detailed individualized Plan of Care for this patient by day #4 of the patients stay based upon the Preadmission Screen, the Post-Admission Evaluation, and the therapy evaluations. Admission Dx/Comorbidities: (1) Subdural hematoma ICD Codes: S06.5X9A - Traumatic subdural hemorrhage with loss of consciousness of unspecified duration, initial encounter Assessment/Plan Assessment and Plan Assess & Plan/Chief Complaint Assessment: s/p bilateral hematoma s/p elijah holes by Dr Shirlene BUTLER Previous OAC HTN DM Plan: Hold OAC Pain control Monitor closely SRINIVAS RIVERA DO Oct 17, 2021 12:11
[~2021-10-17 13:26] MED LIST changes: +ALPRAZolam 0.25 MG (XANAX) TAB PO PRN; +ASPI-999 PO; +B2/V1TAB PO; +BISACODYL 10 MG SUPP (DULCOLAX) PR PRN; +CALCIUM CARBONATE 500 MG (TUMS) TAB.CHEW PO PRN; +DOCUSATE SODIUM 100 MG (COLACE) CAP PO PRN; +EMPA10TA PO; +FLEET ENEMA ADULT 1 EA BTL PR PRN; +HYDR-3817 PO; +LACTULOSE SYRUP 10GM/15ML (ENULOSE) 30ML UDC PO PRN; +LEVE500T6 PO; -LISI-552 PO; +LISI20TA26 PO; +LOPERAMIDE 2 MG (IMODIUM) TABLET PO PRN; +MULT-1136 PO; +NF-SILD25T PO; +ONDANSETRON 4 MG (ZOFRAN) ORAL DISSOLVE TAB PO PRN; +RIVA20TA PO; +SILD25TA9 PO; +TADA5TAB13 PO; +TMSL.4C PO; +[UNRECOGNIZED DRUG - REMARK] PO SCH; +diphenhydrAMINE 25 MG TAB (BENADRYL) PO PRN; +guaiFENesin/CODEINE (ROBITUSSIN AC) 10ML UDC PO PRN
--- NOTE | 2021-10-17 14:55 | Physical Therapy Evaluation ---
PT Evaluation-General Medical Diagnosis Admission Date Oct 17, 2021 at 14:23 Medical Diagnosis: bilateral SDH, elijah holes Onset Date: Oct 12, 2021 Therapy Diagnosis Therapy Diagnosis: impaired mobility, strength, endurance Height/Weight Height (Feet): 5 Height (Inches): 11.00 Weight (Pounds): 194 Weight (Ounces): 0.0 Referral Physician: Marita Sanders DO Reason for Referral: Evaluation/Treatment Medical History Additional Medical History Past Medical History Currently Using CPAP: No Currently Using BIPAP: No Cardiac: Atrial Fibrillation, High Cholesterol, Hypertension Sexually Transmitted Disease: No HIV/AIDS: No Genitourinary: Prostate Problems, Kidney Stones Musculoskeletal: Arthritis Endocrine: Diabetes, Non-Insulin dep HEENT: Glaucoma Loss of Vision: Denies Hearing Impairment: Denies Cancer: Prostate Did You Recieve Any Treatments: Yes What Type of Treatment Did You: Radiation History of Blood Disorders: No Adverse Reaction to Blood Zhao: No (N/A) Reviewed History: Yes Social History Home: Single Level Current Living Status: Spouse Entry Into Home: Level Entry Prior Prior Level of Function SCALE: Activities may be completed with or without assistive devices. 5-Dsorrcphvf-hskmuvv completes the activity by him/herself with no assistance from a helper. 5-Set-up or Clean-up Assistance-helper sets up or cleans up; patient completes activity. Nav[place] assists only prior to or following the activity. 4-Supervision or Touching Assistance-helper provides verbal cues and/or touching/steadying and/or contact guard assistance as patient completes activity. Assistance may be provided throughout the activity or intermittently. 3-Partial/Moderate Assistance-helper does LESS THAN HALF the effort. [place] lifts, holds or supports trunk or limbs, but provides less than half the effort. 2-Substantial/Maximal Assistance-helper does MORE THAN HALF the effort. [place] lifts or holds trunk or limbs and provides more than half the effort. 8-Olhfsvnoc-lkcppp does ALL the effort. Patient does none of the effort to complete the activity. Or, the assistance of 2 or more helpers is required for the patient to complete the activity. If activity was not attempted, code reason: 7-Patient Refused. 9-Not Applicable-not attempted and the patient did not perform the activity before the current illness, exacerbation or injury. 10-Not Attempted due to Environmental Limitations-(lack of equipment, weather restraints, etc.). 88-Not Attempted due to Medical Conditions or Safety Concerns. Bed Mobility: 6 Transfers (B,C,W/C): 6 Gait: 6 Stairs: 6 Indoor Mobility (Ambulation): Independent Stairs: Independent PT Evaluation-Current Subjective Patient arrives via family transport, has 6/10 pain in head (nurse notified). Will be co-treating with OT for part of tx due to poor patient mobility, strength, endurance, pain with activity, coordinate UE and LE with activity, safety and reduce risk of falls. Pt/Family Goals to be independent at home Objective Patient Orientation: Person, Place, Situation ROM/Strength ROM Lower Extremities WNL Strength Lower Extremities LLE (hip flexion 5/5, knee flexion 5/5, knee extension 5/5, dorsiflexion 5/5), RLE (hip flexion 5/5, knee flexion 4/5, knee extension 4/5, dorsiflexion 4/5) Sensory Vision: Wears Glasses Hearing: Functional Sensation Right Lower Extremit: Intact Sensation Left Lower Extremity: Intact Transfers Roll Left & Right (QC): 6 Sit to Lying (QC): 6 Lying to Sitting/Side of Bed(Q: 3 (Deondre) Sit to Stand (QC): 4 (CGA) Chair/Xdr-ly-Xensx Xfer(QC): 4 (CGA) Toilet Transfer (QC): 4 (CGA) Car Transfer (QC): 4 (CGA) Patient performs rolling with independence, supine to sit min assist, sit to supine independent, sit <-> stand and transfers CGA, car transfer CGA. Occasional cues for safety and positioning. Gait Does the Patient Walk?: Yes Mode of Locomotion: Walk Anticipated Mode of Locomotion: Walk Walk 10 feet (QC): 4 (CGA) Walk 50 ft with 2 Turns(QC): 4 (CGA) Walk 150 ft (QC): 4 (CGA) Walking 10ft/uneven surface-QC: 4 (CGA) Distance: 200' Gait Assistive Device: FWW Comments/Gait Description Patient can ambulate 200' with a rolling walker with CGA (including 50' with at least 2 turns of 90 degrees and 10' over an uneven surface), has occasional unsteady moments but no LOB Wheelchair Training Does the Pt Use a Wheelchair?: No Wheel 50 ft with 2 turns (QC): 9 Wheel 150 ft (QC): 9 Stairs #of Steps: 4 1 Step (curb) (QC): 4 (CGA) 4 Steps (QC): 4 (CGA) 12 Steps (QC): 88 Patient can go up and down 4 steps using 2 handrails with CGA, cues for safety and foot placement. Balance Sitting Static: Normal Sitting Dynamic: Normal Standing Static: Fair Standing Dynamic: Fair Picking up an Object (QC): 4 (CGA using paper supervisor) Special Test Comments Patient scored 24/28 on the Tinetti Assessment Tool Assessment/Needs Patient in therapy gym post tx, will continue with MANAGER STYLIST. Patient has impaired mobility, strength, endurance, balance. Needs a little assist for supine to sit but otherwise is mostly CGA for transfers and ambulation. 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 Time Frame: Nov 07, 2021 Roll Left & Right (QC): 6 Sit to Lying (QC): 6 Lying-Sitting on Side/Bed(QC): 6 Sit to Stand (QC): 6 Chair/Rac-mg-Hosag Xfer(QC): 6 Toilet Transfer (QC): 6 Car Transfer (QC): 6 Does the Patient Walk: Yes Walk 10 feet (QC): 6 Walk 50ft with 2 Turns (QC): 6 Walk 150 ft (QC): 6 Walking 10ft on Uneven Surface: 6 1 Step (curb) (QC): 4 (SBA) 4 Steps (QC): 4 (SBA) 12 Steps (QC): 4 (SBA) Picking up an Object (QC): 6 Wheel 50 feet with 2 turns (QC: 9 Wheel 150 feet: 9 PT Plan Problem List Problem List: Activity Tolerance, Functional Strength, Safety, Balance, Gait, Transfer, Bed Mobility, ROM Treatment/Plan Treatment Plan: Continue Plan of Care Treatment Plan: Bed Mobility, Education, Functional Activity Jorge, Functional Strength, Group Therapy, Gait, Safety, Therapeutic Exercise, Transfers Treatment Duration: Nov 07, 2021 Frequency: At least 5 of 7 days/Wk (IRF) Estimated Hrs Per Day: 1.5 hours per day Patient and/or Family Agrees t: Yes Safety Risks/Education Patient Education: Gait Training, Transfer Techniques, Steps, Correct Positioning, Safety Issues Teaching Recipient: Patient Teaching Methods: Demonstration, Discussion Response to Teaching: Reinforcement Needed Discharge Recommendations Plan Patient will perform bed mobility and transfer training, balance and endurance training, functional strengthening, stair training, gait training, and education, to improve functional mobility and independence at home. Therapy Discharge Recommendati: Scheduled Assistance, Home & Family, Post Acute PT Time/GCodes Time In: 1415 Time Out: 1440 Total Billed Treatment Time: 15 Total Billed Treatment 1 visit EVM 10' PT eval from [id number], OT eval from [id number] SPENCER PÉREZ PT Oct 17, 2021 14:55
[2021-10-17] MEDS: ACETAMINOPHEN 325 MG TABLET PO PRN (15:11)
--- NOTE | 2021-10-17 15:12 | Occupational Therapy Eval ---
OT Evaluation-General/PLF Medical Diagnosis Admission Date Oct 17, 2021 at 14:23 Medical Diagnosis: bilateral SDH, elijah holes Onset Date: Oct 12, 2021 Therapy Diagnosis Therapy Diagnosis: reduced adl status Height/Weight Height (Feet): 5 Height (Inches): 11.00 Weight (Pounds): 194 Weight (Ounces): 0.0 Precautions Precautions/Isolations: Fall Prevention, Standard Precautions Referral Physician: Marita Sanders DO Referral Reason: Evaluation/Treatment Medical History Pertinent Medical History: Atrial Fib, Arthritis, CAD, DM, HTN Current History Pt transfer from [facility]. S/p elijah holes on 10/14 from bilateral SDH. Per patient, he lives with his in a single story home. He was indep with adls and shares IADL responsibilities with his (except his does all cooking). Pt was not using any AD at baseline. Reviewed History: Yes Social History Home: Single Level Current Living Status: Spouse Entry Into Home: Level Entry ADL-Prior Level of Function SCALE: Activities may be completed with or without assistive devices. 3-Ypycemxltd-ujhkmar completes the activity by him/herself with no assistance from a helper. 5-Set-up or Clean-up Assistance-helper sets up or cleans up; patient completes activity. [place] assists only prior to or following the activity. 4-Supervision or Touching Assistance-helper provides verbal cues and/or touching/steadying and/or contact guard assistance as patient completes activity. Assistance may be provided throughout the activity or intermittently. 3-Partial/Moderate Assistance-helper does LESS THAN HALF the effort. [place] lifts, holds or supports trunk or limbs, but provides less than half the effort. 2-Substantial/Maximal Assistance-helper does MORE THAN HALF the effort. [place] lifts or holds trunk or limbs and provides more than half the effort. 2-Rbijvfqkl-ieafmw does ALL the effort. Patient does none of the effort to complete the activity. Or, the assistance of 2 or more helpers is required for the patient to complete the activity. If activity was not attempted, code reason: 7-Patient Refused. 9-Not Applicable-not attempted and the patient did not perform the activity before the current illness, exacerbation or injury. 10-Not Attempted due to Environmental Limitations-(lack of equipment, weather restraints, etc.). 88-Not Attempted due to Medical Conditions or Safety Concerns. Self Care: Independent Functional Cognition: Independent DME/Equipment: Bath Chair, Grab Bars, Tub/Shower Drive Self: Yes OT Current Status Subjective Pt reports pain as 7/10 in head. RN notified. Co-treat with PT for part of treatment ([id number]) secondary to impaired endurance, increased fatigue from travel, and due to need of 2 skilled clinicians to progress indep and safety with adls and functional mobility. Appearance Pt left supine in bed, all needs within reach. Mental Status/Objective Patient Orientation: Person, Place, Situation Attachments: IV Current Glasses/Contacts: Yes Hearing Aids: No Dentures/Partials: No Hand Dominance: Left Upper Extremity ROM WNL Upper Extremity Coordination Intact Upper Extremity Sensation Intact Upper Extremity Strength 4/5 grossly ADL-Treatment Eating (QC): 6 Oral Hygiene (QC): 4 (supervision at standing level) Shower/Bathe Self (QC): 7 Upper Body Dressing (QC): 7 Lower Body Dressing (QC): 4 On/Off Footwear (QC): 6 Toileting Hygiene (QC): 4 Pt requesting to defer shower until tomorrow secondary to fatigue from travel. Able to don/doff bilateral socks and shoes without difficulty. Good flexibility with cross over method. Anticipate no difficulty threading feet into pants. Pt stood and ambulated to bathroom with CGA and use of walker. Mild unsteadiness but no LOB. He was able to perform clothing management and toilet transfer with CGA. He stood at sink to complete hand hygiene, oral care and face washing with close supervision. Again, mild unsteadiness with prolonged standing but no significant LOB. Pt does report fatigue after grooming tasks, requires a sitting rest break. Education on energy conservation strategies. Other Treatments Pt ambulated throughout unit with CGA and use of walker. Mild unsteadiness but no LOB. Min cues for walker safety. Pt completed multiple sit<>stands from different heights with SBA-CGA, cues for hand placement as pt has tendency to push up from walker. Several rest breaks secondary to fatigue and pain in head. Education on rehab process. Education OT Patient Education: Correct positioning, Energy conservation, Modified ADL techniques, Purpose of tx/functional activities, Rehab process, Safety issues, Transfer techniques, W/C management Teaching Recipient: Patient, Family Teaching Methods: Demonstration, Discussion Response to Teaching: Verbalize Understanding, Return Demonstration OT Short Term Goals Short Term Goals Time Frame: Oct 24, 2021 Eatin Oral hygiene: 6 Toileting hygiene: 6 Shower/bathe self: 4 Upper body dressin Lower body dressin Putting on/taking off footwear: 6 OT Stone Setter Goals Usp Goals Time Frame: Oct 30, 2021 Eating (QC): 6 Oral Hygiene (QC): 6 Toileting Hygiene (QC): 6 Shower/Bathe Self (QC): 5 Upper Body Dressing (QC): 6 Lower Body Dressing (QC): 6 On/Off Footwear (QC): 6 1=Demonstrate adherence to instructed precautions during ADL tasks. 2=Patient will verbalize/demonstrate understanding of assistive devices/ela fications for ADL. 3=Patient will improve strength/tolerance for activity to enable patient to perform ADL's. OT Education/Plan Problem List/Assessment Assessment: Decreased Activ Tolerance, Impaired Funct Balance, Impaired I ADL's, Impaired Self-Care Skills Discharge Recommendations Plan/Recommendations: Continue POC Therapy Discharge Recommendati: Post Acute OT (home health OT) Treatment Plan/Plan of Care Treatment,Training & Education: Yes Patient would benefit from OT for education, treatment and training to promote independence in ADL's, mobility, safety and/or upper extremity function for ADL's. Plan of Care: ADL Retraining, Cognitive Retraining, Concurrent Therapy, Functional Mobility, Group Exercise/Act as Ind, UE Funct Exercise/Act Treatment Duration: Oct 30, 2021 Frequency: At least 5 of 7 days/Wk (IRF) Estimated Hrs Per Day: 1.5 hours per day (75-90 min/day ) Agreement: Yes Rehab Potential: Fair Time/GCodes Start Time: 14:25 Stop Time: 15:55 Total Time Billed (hr/min): 90 Billed Treatment Time 1 visit EVM (10 min) ADL x3 (45 min) FA x2 (35 min) OT eval ([id number]), Co-treat ([id number]) Almaz Shultz OT Oct 17, 2021 15:11
--- NOTE | 2021-10-17 15:18 | Progress Note ---
VÍCTOR RAMOS 10/17/21 1518: Progress Note SUBJECTIVE CC: S/p subdural hematoma evacuation HPI: 71yo M with a history of acute on chronic subdural hematoma admitted to rehab on 10/17/2021 with a chief complaint of s/p subdural hematoma evacuation. The patient experienced headache for 10 days prior to admission to [facility] on 10/09/2021. Surgery was completed at [facility] on 10/12/2021. Post-operatively the patient was noted to be doing well with significant improvement in headache pain. Patient is very pleasant to converse with. He was accompanied by his . PMH: Acute on Chronic Subdural Hematoma Arthritis AFib Rate controlled CAD Coagulopathy Prostate Cancer Claustrophobia Diabetes Glaucoma TORREZ Migraine HTN Hyperlipidemia Obstructive sleep apnea Prostate Disease PSH: Free skin graft on scalp Left thumb surgery Insertion of prostate radiation seed Left ankle total arthroplasty and gastroc recession of left LE ALL: Poison shady No known drug allergies No food allergies MEDS: Keppra tablet 500mg BID PO Senna 1 each BID PO Miralax 17gm packet BID PO Colace Capsule 100mg BID PO Zofran 4mg Q6H PRN PO Tylenol Tablet 650mg Q6H PRN PO Melatonin tablet 3mg HS PRN PO Imodium tablet 2mg PRN PO Robitussin 10ml Q4H PRN PO Fleet Enema 1 each BID PRN SD Enulose Oral Solution 10gm BID PRN PO Dulcolax Suppository 10mg PRN Daily Benadryl Tablet 25mg Q6H PO Calcium Carbonate 500mg TID PRN PO Xanax tablet 0.25mg Q8H PRN PO Tadalafil 5mg PO daily Aspirin 81mg 1 Tablet PO daily ICAPS 1 Tablet PO daily Carvedilol 12.5mg tablet BID PO Jardiance 10mg Tablet daily Lisinopril 20mg tablet PO daily Metformin 1,000mg tablet BID PO Multivitamin 1 tablet PO daily Xarelto 20mg tablet 20mg PO daily Simvastatin 20mg tablet PO daily Tamsulosin 0.4mg tablet PO daily Sildenafil 25mg tablet PO PRN daily SH: Never smoked Never used alcohol Never used drugs Patient is FH: Father HTN Mother HTN Brother HTN Diabetes Renal Cancer Sister Cancer- Unknown type ROS: Slight nausea from car ride No vomiting Last bowel movement reported by to be 10 days ago Patient reports he is very lightheaded No chest pain No pain with breathing No abdominal pain Incisions on head causing pain and slight headache OBJECTIVE Cardiovascular: Irregular rhythm. No chest pain. No cyanosis or clubbing of the fingers. Pulmonary: Lungs clear to ausculation bilaterally. No use of accessory muscles to breath. No pain with breathing. Abdomen: Normoactive bowel sounds present in all quadrants. Pain to deep palpation of the LLQ. Eye: EOMI. PERRLA. LE: Sensation intact bilaterally. No edema. 2+ dorsalis pedis pulses bilaterally Neuro: CN II-XII intact bilaterally. Incisions from surgery make it feel like there is a constant pressure and causing a slight headache. SRINIVAS RIVERA DO 10/17/211928: Supervisory-Addendum Brief Verification & Attestation Participated in pt care: history, MDM, physical Personally performed: exam, history, MDM, supervision of care Care discussed with: Medical Student Procedures: n/a Results interpretation: Verified all documentation Verification and Attestation of Medical Student E/M Service A medical student performed and documented this service in my presence. I reviewed and verified all information documented by the medical student and made modifications to such information, when appropriate. I personally performed the physical exam and medical decision making. Srinivas Rivera, Oct 17, 2021,19:29 VÍCTOR RAMOS Oct 17, 2021 15:18 SRINIVAS RIVERA DO Oct 17, 2021 19:29
[2021-10-17] MEDS ORDERED: tadalafiL 5 MG TABLET (NON-FORMULARY) PO SCH (15:45)
--- NOTE | 2021-10-17 15:55 | Physical Therapy Daily Note ---
PT Daily Note-Current Subjective Pt. agreeable to co Rx with OT secondary to weakness, fatigue and lightheadedness and pain. Pt. c/o light sensitivity. Pt. c/o headache at 09/23. present Pain Numeric Pain Scale: 7 Location: Medial Location Body Site: Head Pain Description: Ache Mental Status Patient Orientation: Normal For Age Transfers SCALE: Activities may be completed with or without assistive devices. 9-Lmaidvmgng-mzmmzng completes the activity by him/herself with no assistance from a helper. 5-Set-up or Clean-up Assistance-helper sets up or cleans up; patient completes activity. [place] assists only prior to or following the activity. 4-Supervision or Touching Assistance-helper provides verbal cues and/or touching/steadying and/or contact guard assistance as patient completes activity. Assistance may be provided throughout the activity or intermittently. 3-Partial/Moderate Assistance-helper does LESS THAN HALF the effort. [place] lifts, holds or supports trunk or limbs, but provides less than half the effort. 2-Substantial/Maximal Assistance-helper does MORE THAN HALF the effort. [place] lifts or holds trunk or limbs and provides more than half the effort. 7-Yqiwokszj-mgiuuz does ALL the effort. Patient does none of the effort to complete the activity. Or, the assistance of 2 or more helpers is required for the patient to complete the activity. If activity was not attempted, code reason: 7-Patient Refused. 9-Not Applicable-not attempted and the patient did not perform the activity before the current illness, exacerbation or injury. 10-Not Attempted due to Environmental Limitations-(lack of equipment, weather restraints, etc.). 88-Not Attempted due to Medical Conditions or Safety Concerns. All TRFs CGA to SBA Gait Training Does the Patient Walk?: Yes Gait Assistive Device: FWW 165 ft x 2 FWW, 50 ftx2, 100ft x1 CGA no LOB, slow, careful, needs directions as to where to go Wheelchair Training Does the Pt Use a Wheelchair?: Yes Wheel 150 ft (QC): 6 Type of Wheelchair: Manual pt. was fatigued and requested to wheel vs walk Exercises Supine Ex: Ankle pumps, Quad Set, Rolling, Glut sets Supine Reps: 20 Treatments pt. ambulated with FWW, stepped up on scale, weighing in at 209lbs, pt. toileted with SBA and sat at sink with OT overseeing brushing teeth and face and hand washing. Pt. demonstrted eating with indep with all utensils and no apparent swallowing issues etc. Pt. was oriented to scheduling and expectations of ARU as well orientation to ordering meals and how to use the bed and call light etc. Pt. fatigued with Rx and was ultimately in bed with room temp adjusted to his liking and a blanket. Bartholomew at hand Assessment Current Status: Good Progress gives full effort, headache and fatigue limit activity PT Short Term Goals Short Term Goals Time Frame: Oct 24, 2021 Roll Left & Right: 6 Sit to lyin Lying to sitting on side of be: 6 Sit to stand: 4 (SBA) Chair/jqw-rj-gfgrl transfer: 4 (SBA) Walk 10 feet: 4 (SBA) Walk 50 feet with two turns: 4 (SBA) Walk 150 feet: 4 (SBA) PT Jail Goals Assistant Professor Of Religion Goals PT Jail Goals Time Frame: Nov 07, 2021 Roll Left & Right (QC): 6 Sit to Lying (QC): 6 Lying-Sitting on Side/Bed(QC): 6 Sit to Stand (QC): 6 Chair/Zcg-ly-Qsgtx Xfer(QC): 6 Toilet Transfer (QC): 6 Car Transfer (QC): 6 Does the Patient Walk: Yes Walk 10 feet (QC): 6 Walk 50ft with 2 Turns (QC): 6 Walk 150 ft (QC): 6 Walking 10ft on Uneven Surface: 6 1 Step (curb) (QC): 4 (SBA) 4 Steps (QC): 4 (SBA) 12 Steps (QC): 4 (SBA) Picking up an Object (QC): 6 Wheel 50 feet with 2 turns (QC: 9 Wheel 150 feet: 9 PT Plan Treatment/Plan Treatment Plan: Continue Plan of Care Treatment Plan: Bed Mobility, Education, Functional Activity Jorge, Functional Strength, Group Therapy, Gait, Safety, Therapeutic Exercise, Transfers Treatment Duration: Nov 07, 2021 Frequency: At least 5 of 7 days/Wk (IRF) Estimated Hrs Per Day: 1.5 hours per day Patient and/or Family Agrees t: Yes Safety Risks/Education Patient Education: Gait Training, Transfer Techniques Teaching Recipient: Patient Teaching Methods: Demonstration, Discussion Response to Teaching: Verbalize Understanding, Return Demonstration, Reinforcement Needed Time/GCodes Time In: 1435 Time Out: 1555 Total Billed Treatment Time: 80 Total Billed Treatment 1,FA50m,GT20m,EX10m KIRSTIN TA [address] ROLLER ENGINEER Oct 17, 2021 15:55
[2021-10-17] MEDS: metFORMIN 500 MG (GLUCOPHAGE) TAB PO SCH (17:24)
[2021-10-17] MEDS ORDERED: AtorvaSTATin TABLET 10 MG TABLET PO SCH (18:00)
[2021-10-17] MEDS ORDERED: HYDROcodone/APAP 5 MG/325 MG (LORTAB) TAB ONE (19:27)
[2021-10-17] MEDS: HYDROcodone/APAP 5 MG/325 MG (LORTAB) TAB PO PRN (19:29)
[2021-10-17 19:48] VITALS: BP 135/85
[2021-10-17] MEDS: inSUlin ASPART (NovoLOG) 1 UNIT/0.01 ML (CHARGE PER UNIT) SC SCH (20:35)
[2021-10-17] MEDS: SENNA W/DOCUSATE (SENOKOT S) TABLET PO SCH (21:13)
[2021-10-17] MEDS: DOCUSATE SODIUM 100 MG (COLACE) CAP PO SCH (21:13)
[2021-10-17] MEDS: polyethylene glycoL POWDER 17 GM (MIRALAX) PACK PO SCH (21:13)
--- NOTE | 2021-10-18 05:46 | PM&R Progress Note ---
Subjective HPI/CC On Admission Date Seen by Provider: Oct 18, 2021 Subjective/Events-last exam 10/18/2021: Doing well Sleeping well TORREZ improved with pain meds No falls Working with therapy Review of Systems General: Fatigue, Malaise Objective Exam Vital Signs Vital Signs Date Time Temp Pulse Resp B/P (MAP) Pulse Ox O2 Delivery O2 Flow Rate FiO2 10/18/21 17:12 108 160/71 (100) 10/18/21 09:00 Room Air 10/18/21 07:50 36.9 22 95 Capillary Refill : General Appearance: No Apparent Distress, WD/WN, Chronically ill HEENT: PERRL/EOMI, Normal ENT Inspection, Pharynx Normal Neck: Full Range of Motion, Normal Inspection, Non Tender, Supple, Carotid Bruit Respiratory: Chest Non Tender, Lungs Clear, Normal Breath Sounds, No Accessory Muscle Use, No Respiratory Distress Cardiovascular: Regular Rate, Rhythm, No Edema, No Gallop, No JVD, No Murmur, Normal Peripheral Pulses Gastrointestinal: Normal Bowel Sounds, No Organomegaly, No Pulsatile Mass, Non Tender, Soft Back: Normal Inspection, No CVA Tenderness, No Vertebral Tenderness Extremity: Normal Capillary Refill, Normal Inspection, Normal Range of Motion, Non Tender, No Calf Tenderness, No Pedal Edema Neurologic/Psychiatric: Alert, Oriented x3, Normal Mood/Affect, round up ring hand II-XII Norm as Tested, Abnormal Gait, Depressed Affect, Motor Weakness Skin: Normal Color, Warm/Dry, Other (incisions of scalp healing well) Lymphatic: No Adenopathy Results/Procedures Lab Laboratory Tests 10/18/21 08:14 Patient resulted labs reviewed. FIM Transfers Therapy Code Descriptions/Definitions Functional [place] Measure: 0=Not Assessed/NA 4=Minimal Assistance 1=Total Assistance 5=Supervision or Setup 2=Maximal Assistance 6=Modified [place] 3=Moderate Assistance 7=Complete IndependenceSCALE: Activities may be completed with or without assistive devices. 8-Fareqpdqng-cbddvgm completes the activity by him/herself with no assistance from a helper. 5-Set-up or Clean-up Assistance-helper sets up or cleans up; patient completes activity. [place] assists only prior to or following the activity. 4-Supervision or Touching Assistance-helper provides verbal cues and/or touching/steadying and/or contact guard assistance as patient completes activity. Assistance may be provided throughout the activity or intermittently. 3-Partial/Moderate Assistance-helper does LESS THAN HALF the effort. [place] lifts, holds or supports trunk or limbs, but provides less than half the effort. 2-Substantial/Maximal Assistance-helper does MORE THAN HALF the effort. [place] lifts or holds trunk or limbs and provides more than half the effort. 2-Uteujefrp-rnaaip does ALL the effort. Patient does none of the effort to complete the activity. Or, the assistance of 2 or more helpers is required for the patient to complete the activity. If activity was not attempted, code reason: 7-Patient Refused. 9-Not Applicable-not attempted and the patient did not perform the activity before the current illness, exacerbation or injury. 10-Not Attempted due to Environmental Limitations-(lack of equipment, weather restraints, etc.). 88-Not Attempted due to Medical Conditions or Safety Concerns. Roll Left to Right (QC): 6 Sit to Lying (QC): 6 Sit to Stand (QC): 4 (CGA) Chair/Lpm-rw-Sybxo Xfer(QC): 4 (CGA) Car Transfer (QC): 4 (CGA) Gait Training Does the Patient Walk?: Yes Walk 10 feet (QC): 4 (CGA) Walk 50 ft with 2 Turns(QC): 4 (CGA) Walk 150 ft (QC): 4 (CGA) Walking 10ft/uneven surface-QC: 4 (CGA) Gait Assistive Device: FWW Wheelchair Training Does the Pt Use a Wheelchair?: Yes Wheel 50 ft with 2 turns (QC): 9 Wheel 150 ft (QC): 6 Type of Wheelchair: Manual Stair Training #of Steps: 4 1 Step (curb) (QC): 4 (CGA) 4 Steps (QC): 4 (CGA) 12 Steps (QC): 88 Balance Picking up an Object (QC): 4 (CGA using head of strategy) ADL-Treatment Eating (QC): 6 Oral Hygiene (QC): 4 (supervision at standing level) Shower/Bathe Self (QC): 7 Upper Body Dressing (QC): 7 Lower Body Dressing (QC): 4 On/Off Footwear (QC): 6 Toileting Hygiene (QC): 4 Assessment/Plan Assessment and Plan Assess & Plan/Chief Complaint Assessment: s/p bilateral hematoma s/p elijah holes by Dr Garber AF Previous OAC HTN DM Plan: Hold OAC Pain control Monitor closely 10/18/2021: Pain control Aggressive therapy (1) Subdural hematoma SRINIVAS RIVERA DO Oct 18, 2021 05:46
--- NOTE | 2021-10-18 05:48 | Individualized Plan of Care ---
Individualized Plan of Care Rehab Nursing IPOC Order Admission Date Oct 17, 2021 at 14:23 Current Orders Orders Admission Order(Inpt,Obs,Sdc) (10/17/21 12:06) Vital Signs: Per Unit Policy ( ,16,00 (10/17/21 12:06) Gera Aguirre (10/17/21 12:06) Sequential Compression Device (10/17/21 12:06) Hide House Supervisor-Inpt Rehab Con (10/17/21 12:06) Rehab Nursing Orders-Ipoc (10/17/21 12:06) Physical Therapy Rehab Orders (10/17/21 12:06) Occupational Therapy Rehab Ord (10/17/21 12:06) Speech Therapy Rehab Orders (10/17/21 12:06) Cbc With Automated Diff (10/18/21 06:00) Comprehensive Metabolic Panel (10/18/21 06:00) Precautions (Aru) (10/17/21 12:06) Weekly Weight WEEK (10/17/21 12:06) Calcium Carbonate Chew Tablet (Antacid C (10/17/21 12:15) Diphenhydramine Tablet (Benadryl Tablet) (10/17/21 12:15) Docusate Sodium Capsule (Colace Capsule) (10/17/21 21:00) Docusate Sodium Capsule (Colace Capsule) (10/17/21 12:15) Bisacodyl Suppository (Dulcolax Supposit (10/17/21 12:15) Lactulose Oral Solution (Enulose Oral So (10/17/21 12:15) Na Phos/Na Biphos Enema (Fleet Enema Rashid (10/17/21 12:15) Guaifenesin/Codeine Syrup (Robitussin Ac (10/17/21 12:15) Loperamide Tablet (Imodium Tablet) (10/17/21 12:15) Melatonin Tablet (Melatonin Tablet) (10/17/21 12:15) Polyethylene Glycol Powder Pkt (Miralax (10/17/21 21:00) Ondansetron Oral Dissolve Tab (Zofran (10/17/21 12:15) Senna S Tablet (Senokot S Tablet) (10/17/21 21:00) Acetaminophen Tablet/Caplet (Tylenol T (10/17/21 12:15) Code/Resuscitation (10/17/21 12:06) Initiate Admission Nursing Pro .admission (10/17/21 12:06) Vte Contraindication (10/17/21 12:06) Rehab-Intensity Of Therapy (10/17/21 12:06) Alprazolam Tablet (Xanax Tablet) (10/17/21 12:15) Carvedilol Tablet (Coreg Tablet) (10/17/21 18:00) Empagliflozin Tablet (Jardiance Tablet) (10/18/21 09:00) Levetiracetam Tablet (Keppra Tablet) (10/17/21 21:00) Lisinopril Tablet (Zestril Tablet) (10/18/21 09:00) Tamsulosin Capsule (Flomax Capsule) (10/18/21 09:00) (Nf) B2/Vit A,C & E/Lut/Zeaxanth/Mn (Ica (10/18/21 09:00) Metformin Tablet (Glucophage Tablet) (10/17/21 18:00) Therapeutic Multivitamin Tab (Vitamins, (10/18/21 07:00) Atorvastatin Tablet (Lipitor Tablet) (10/17/21 18:00) (Nf) Tadalafil (10/17/21 12:15) Admission Arrival Bed Request (10/17/21 14:15) Cho 60g/M 1snack (16-2000 Dl) (10/17/21 Lunch) Patient Visit (10/17/21 ) Pt Eval Moderate Complexity (10/17/21 ) Tadalafil Tablet (Non-Form) (Tadalafil T (10/17/21 15:45) Patient Visit (10/17/21 ) Functional Activities, Ea 15 (10/17/21 ) Gait Training, Ea 15 Min (10/17/21 ) Exercise Therap, Ea 15 Min (10/17/21 ) Hydrocodone/Apap 5/325 Tablet (Lortab 5 (10/17/21 19:30) Accucheck Achs ACHS (10/17/21 19:16) Insulin Aspart (Novolog) (Novolog (Charg (10/17/21 21:00) Magnesium Citrate Oral Soln (Citrate Of (10/18/21 07:00) Hydrocodone/Apap 5/325 Tablet (Lortab 5 (10/17/21 19:27) Patient Visit (10/18/21 ) Speech Sound Lang Comp (10/18/21 ) Treat. Speech/Lang/Voice (10/18/21 ) Hydrocortisone 2.5% Cream (Anusol-Hc 2.5 (10/18/21 21:00) Phenylephrine Hcl/[place] Butter (Preparat (10/18/21 12:45) Ct Head Wo (10/25/21 08:00) Patient Visit (10/18/21 ) Functional Activities, Ea 15 (10/18/21 ) Gait Training, Ea 15 Min (10/18/21 ) Exercise Therap, Ea 15 Min (10/18/21 ) Rehab Nursing Orders: Ongoing Assess. of Cognitive Status, Ongoing Assess. of Function Status, Bladder Management, Bladder Scan, Bladder Training, Bowel Management, Bowel Training, Disease Management & Educaiton, DVT Prophylaxis, Fall Prevention, Fluid/Electrolyte/Nutrition Mgmt, Infection Prevention, Medication Management & Education, Management of Risks & Complications, Management of Skin Intergrity, Nutrition Management, Pain Management, Patient/Family Support, Safety Management, Wound Management Intensity of Therapy to be met Patient to be seen: Min.3h per day/5 of 7d PT IPOC Problem List: Activity Tolerance, Functional Strength, Safety, Balance, Gait, Transfer, Bed Mobility, ROM Treatment Plan: Continue Plan of Care Bed Mobility, Education, Functional Activity Jorge, Functional Strength, Group Therapy, Gait, Safety, Therapeutic Exercise, Transfers Treatment Duration: Nov 07, 2021 Frequency: At least 5 of 7 days/Wk (IRF) Estimated Hrs Per Day: 1.5 hours per day OT IPOC Problems: Decreased Activ Tolerance, Impaired Funct Balance, Impaired I ADL's, Impaired Self-Care Skills OT Treatment, Training and Edu: Yes Plan of Care: ADL Retraining, Cognitive Retraining, Concurrent Therapy, Functional Mobility, Group Exercise/Act as Ind, UE Funct Exercise/Act Treatment Duration: Oct 30, 2021 Frequency: At least 5 of 7 days/Wk (IRF) Estimated Hrs Per Day: 1.5 hours per day (75-90 min/day ) ST IPOC Speech Therapy Treatment Plan: Continue Plan of Care Treatment Duration: Oct 18, 2021 Frequency: Modified Program (IRF) Estimated Hrs Per Day: Other Hide House Supervisor/Case Mgmt Hide House Supervisor/Case Managemen: Discharge Planning Dietitian/Warehouse Receiving Clerk Dietitian/Warehouse Receiving Clerk to monitor nutritional status and make changes and/or recommendations as needed and work with speech pathology on dietary upgrades as the occur. Physician IPOC Medical Issues being managed closely and that require the 24 hour availability of a physician: Recent elijah holes for subdural hematomas and previous on Xarelto for AF will require close monitoring for decompensation Medical Issues: Bowel/Bladder Function, DVT Prophylaxis, Falls Precautions, Fluid/Electrolyte/Nutrition Balance, Infection Protection Brief Synthesis of Preadmission Screen, Post-Admission Evaluation, and Therapy Evaluations: PT OT will focus on regaining function with use of asssitive devices in order to regain function and return to independent living Medical Prognosis: Good Anticipated Length of Stay: 10 days SRINIVAS RIVERA DO Oct 18, 2021 05:48
[2021-10-18] MEDS: MULTIVIT W/MINERALS TAB (THERAGRAN M) PO SCH (06:12)
[2021-10-18] MEDS: inSUlin ASPART (NovoLOG) 1 UNIT/0.01 ML (CHARGE PER UNIT) SC SCH ×4 (06:14→20:31)
[2021-10-18] MEDS ORDERED: MAGNESIUM CITRATE 300 ML BTL PO ONE (07:00)
[2021-10-18 07:50] VITALS: BP 125/87
[2021-10-18] MEDS: DOCUSATE SODIUM 100 MG (COLACE) CAP PO SCH ×2 (07:50→20:41)
[2021-10-18] MEDS: SENNA W/DOCUSATE (SENOKOT S) TABLET PO SCH ×2 (07:50→21:00)
[2021-10-18] MEDS: metFORMIN 500 MG (GLUCOPHAGE) TAB PO SCH ×2 (07:50→17:11)
[2021-10-18] MEDS: EMPAGLIFLOZIN 10 MG TABLET (JARDIANCE) PO SCH (07:50)
[2021-10-18] MEDS: TAMSULOSIN 0.4 MG (FLOMAX) CAP PO SCH (07:50)
[2021-10-18] MEDS: lisINopril 20 MG (PRINIVIL) TABLET PO SCH (07:51)
[2021-10-18] MEDS: HYDROcodone/APAP 5 MG/325 MG (LORTAB) TAB PO PRN (07:52)
[2021-10-18] MEDS: polyethylene glycoL POWDER 17 GM (MIRALAX) PACK PO SCH ×2 (07:54→21:00)
[2021-10-18 08:24] LABS: BASOPHILS % (AUTO) 0 % (0-10); EOSINOPHILS # (AUTO) 0.1 10^3/uL (0.0-0.3); EOSINOPHILS % (AUTO) 1 % (0-10); HEMATOCRIT 41 % (40-54); HEMOGLOBIN 13.5 g/dL (13.3-17.7); LYMPHOCYTES # (AUTO) 1.2 10^3/uL (1.0-4.0); LYMPHOCYTES % (AUTO) 13 % (12-44); MEAN CORPUSCULAR HEMOGLOBIN 30 pg (25-34); MEAN CORPUSCULAR HGB CONC 33 g/dL (32-36); MEAN CORPUSCULAR VOLUME 89 fL (80-99); MEAN PLATELET VOLUME 9.1 fL (9.0-12.2); MONOCYTES # (AUTO) 0.6 10^3/uL (0.0-1.0); MONOCYTES % (AUTO) 6 % (0-12); NEUTROPHILS # (AUTO) 7.7 10^3/uL (1.8-7.8); NEUTROPHILS % (AUTO) 80 % (42-75); PLATELET COUNT 239 10^3/uL (130-400); WHITE BLOOD COUNT 9.7 10^3/uL (4.3-11.0)
[2021-10-18 08:45] LABS: ALBUMIN 3.7 GM/DL (3.2-4.5); POTASSIUM 4.3 MMOL/L (3.6-5.0)
[2021-10-18 08:47] LABS: CALCIUM 8.7 MG/DL (8.5-10.1)
[2021-10-18 08:48] LABS: TOTAL PROTEIN 6.6 GM/DL (6.4-8.2)
[2021-10-18 08:50] LABS: BILIRUBIN,TOTAL 1.2 MG/DL (0.1-1.0)
[2021-10-18 08:51] LABS: CREATININE SERUM 0.79 MG/DL (0.60-1.30)
[2021-10-18] MEDS ORDERED: [UNRECOGNIZED DRUG - OTHER] PO SCH (09:00)
--- NOTE | 2021-10-18 09:45 | ST Cognitive Linguistic Eval ---
Speech Evaluation-General Medical Diagnosis Bilateral SDH, Elijah Holes Onset Date: Oct 12, 2021 Therapy Diagnosis Therapy Diagnosis: Intact Neurocognitive Skills Precautions Precautions: Fall Precautions/Isolations: Fall Prevention, Standard Precautions Referral Referring Physician: Dr. Marita Sanders Reason for Referral: Evaluation/Treatment Medical History Pertinent Medical History: Atrial Fib, Arthritis, CAD, DM, HTN Current History The patient is a 71 year old male with a past medical history significant for arthritis, CAD, diabetes, HTN, and hyperlipidemia, who presented to acute rehabilitation following a elijah hole evacuation of a subdural hematoma. Reviewed History: Yes Social History Current Living Status: Spouse Speech PLF-Current Status Prior Level of Function The patient (and the patient's ) denied recent concerns with the patient's speech, language, or cognition. Subjective The patient was lying in bed, awake with eyes closed (due to current headache and light sensitivity). The patient greeted the clinician appropriately and was agreeable to participation in the cognitive linguistic evaluation. The patient's RN is aware of the patient's current pain level and recently provided pain medication. Language Eval: Auditory Comprehends Simple Yes/No Ques: Functional Indent/Objects Multiple Young: Functional Ident/Pics in Multiple Young: Functional Follows 1-Step Commands: Functional Follows General Conversations: Functional Language Eval: Verbal Language Completes Spontaneous Greeting: Functional Produces Auto, Serial Info: Functional Imitates Simple Words/Phrases: Functional Word Finding: Functional Requests Basic Needs: Functional States Basic Personal Info: Functional Cognitive Patient Orientation The patient was independently oriented to self, location, month, day of week, date and year. Objective Cognitive Domain Attention: WNL Memory: WNL Problem Solving: Functional Executive Functions: WNL Composite Severity Rating: WNL Objective Formal/Standardized Tests [facility] Status Examination ([facility]) Results The patient demonstrated a result of +24/24 on the UMS. The patient did not complete clock drawing task due to light sensitivity with eye opening. Oral Motor/Speech Production The patient does not display dysarthria or apraxia of speech. The patient was 100% intelligible in known and unknown contexts. Impression The patient demonstrated intact neurocognitive skills. Speech Patient Assess Expression of Ideas/Wants: Expression (4) Understanding Verbal Content: Understands (4) Brief Interview-Mental Status: Yes Repetition of Three Words: Three (3) Temporal Orientation: Year: Correct (3) Temporal Orientation: Month: Accurate within 5 days(2) Temporal Orientation: Day: Correct (1) Recall : Wear to say "Sock": Yes, no cue required (2) Recall : Color: Yes, no cue required (2) Recall : Bed: Yes, no cue required (2) Memory/Recall Ability: Current season, That he or she is in a hsp/hsp unit Speech-Plan Treatment Plan Speech Therapy Treatment Plan: Discontinue ST Treatment Duration: Oct 18, 2021 Frequency: 1 time per week Estimated Hrs Per Day: .5 hour per day Rehab Potential: Good Safety Risks/Education Teaching Recipient: Patient, Significant Other Teaching Methods: Discussion Response to Teaching: Verbalize Understanding Education Topics Provided: Results of JANI POC Time Speech Therapy Time In: 09:00 Speech Therapy Time Out: 09:30 Total Billed Time: 30 Billed Treatment Time 1, KRISTIAN ADAMS [facility] Oct 18, 2021 09:45
--- NOTE | 2021-10-18 10:43 | Occupational Ther Daily Note ---
OT Current Status-Daily Note Subjective Pt reports head pain as 4/10. C/o mild lightheadedness and sensitivity to light. Appearance Pt left sitting in recliner, in room at therapy departure. Mental Status/Objective Patient Orientation: Person, Place, Situation ADL-Treatment Therapy Code Descriptions/Definitions Functional [place] Measure: 0=Not Assessed/NA 4=Minimal Assistance 1=Total Assistance 5=Supervision or Setup 2=Maximal Assistance 6=Modified [place] 3=Moderate Assistance 7=Complete IndependenceSCALE: Activities may be completed with or without assistive devices. 9-Espxnhylxo-unkhqyh completes the activity by him/herself with no assistance from a helper. 5-Set-up or Clean-up Assistance-helper sets up or cleans up; patient completes activity. [place] assists only prior to or following the activity. 4-Supervision or Touching Assistance-helper provides verbal cues and/or touching/steadying and/or contact guard assistance as patient completes activity. Assistance may be provided throughout the activity or intermittently. 3-Partial/Moderate Assistance-helper does LESS THAN HALF the effort. [place] lifts, holds or supports trunk or limbs, but provides less than half the effort. 2-Substantial/Maximal Assistance-helper does MORE THAN HALF the effort. [place] lifts or holds trunk or limbs and provides more than half the effort. 4-Tktdawwxo-rubjfm does ALL the effort. Patient does none of the effort to complete the activity. Or, the assistance of 2 or more helpers is required for the patient to complete the activity. If activity was not attempted, code reason: 7-Patient Refused. 9-Not Applicable-not attempted and the patient did not perform the activity before the current illness, exacerbation or injury. 10-Not Attempted due to Environmental Limitations-(lack of equipment, weather restraints, etc.). 88-Not Attempted due to Medical Conditions or Safety Concerns. Oral Hygiene (QC): 4 Shower/Bathe Self (QC): 5 Upper Body Dressing (QC): 5 Lower Body Dressing (QC): 5 On/Off Footwear: 5 Toileting Hygiene (QC): 6 Toilet Transfer (QC): 4 Shower performed; majority completed in sitting. Pt stood only briefly to wash arthur area/buttocks, no unsteadiness when standing. Pt able to reach all body parts without assist. He c/o mild lightheadedness post task. BP: 114/65, HR 104. Education on energy conservation strategies. Clothing donned seated on edge of shower bench. Set up assist only. He stood at sink for grooming tasks, supervision for safety secondary to feelings of lightheadedness. Other Treatment Pt completed UE exercises with 3# dumbbell. Focus on improving strength and endurance needed for functional tasks. All joints performed to full range. Mild incoordination noted with LUE, needing intermittent min tactile cues for correction. Pt does report fatigue but able to complete all reps in set before taking a rest break. 1x10 all planes. Education OT Patient Education: Correct positioning, Energy conservation, Exercise program, Modified ADL techniques, Progress toward Goal/Update tx plan, Purpose of tx/functional activities, Safety issues Teaching Recipient: Patient, Family Teaching Methods: Demonstration, Discussion Response to Teaching: Verbalize Understanding, Return Demonstration, Reinforcement Needed OT Short Term Goals Short Term Goals Time Frame: Oct 24, 2021 Eatin Oral hygiene: 6 Toileting hygiene: 6 Shower/bathe self: 4 Upper body dressin Lower body dressin Putting on/taking off footwear: 6 OT Music Ministries Director Goals Music Ministries Director Goals Time Frame: Oct 30, 2021 Eating (QC): 6 Oral Hygiene (QC): 6 Toileting Hygiene (QC): 6 Shower/Bathe Self (QC): 5 Upper Body Dressing (QC): 6 Lower Body Dressing (QC): 6 On/Off Footwear (QC): 6 1=Demonstrate adherence to instructed precautions during ADL tasks. 2=Patient will verbalize/demonstrate understanding of assistive device s/modifications for ADL. 3=Patient will improve strength/tolerance for activity to enable patient to perform ADL's. OT Education/Plan Problem List/Assessment Assessment: Decreased Activ Tolerance, Decreased UE Strength, Impaired Funct Balance, Impaired I ADL's Discharge Recommendations Plan/Recommendations: Continue POC Therapy Discharge Recommendati: Home & Family (vs home health OT) Treatment Plan/Plan of Care Treatment,Training & Education: Yes Patient would benefit from OT for education, treatment and training to promote independence in ADL's, mobility, safety and/or upper extremity function for ADL's. Plan of Care: ADL Retraining, Cognitive Retraining, Concurrent Therapy, Functional Mobility, Group Exercise/Act as Ind, UE Funct Exercise/Act Treatment Duration: Oct 30, 2021 Frequency: At least 5 of 7 days/Wk (IRF) Estimated Hrs Per Day: 1.5 hours per day (75-90 min/day ) Agreement: Yes Rehab Potential: Good Time/GCodes Start Time: 09:30 Stop Time: 10:45 Total Time Billed (hr/min): 75 Billed Treatment Time 1 visit ADL x4 (55 min) EX (20 min) Almaz Shultz OT Oct 18, 2021 10:43
[2021-10-18] MEDS ORDERED: HEMORRHOIDAL SUPP (PREPARATION H) PR PRN (12:45)
--- NOTE | 2021-10-18 13:20 | Physical Therapy Daily Note ---
PT Daily Note-Current Subjective Pt sitting in recliner visiting w/Sp upon arrival. Pt agrees to PT. Pain Numeric Pain Scale: 3 Location Body Site: Head Pain Description: Ache Comment: Reported pain at 7/10 then given pain med and pain decrease to 3/10 Mental Status Patient Orientation: Person, Place, Time, Situation Transfers SCALE: Activities may be completed with or without assistive devices. 5-Qwylgkzzpm-dewgtsx completes the activity by him/herself with no assistance from a helper. 5-Set-up or Clean-up Assistance-helper sets up or cleans up; patient completes activity. [place] assists only prior to or following the activity. 4-Supervision or Touching Assistance-helper provides verbal cues and/or touching/steadying and/or contact guard assistance as patient completes activity. Assistance may be provided throughout the activity or intermittently. 3-Partial/Moderate Assistance-helper does LESS THAN HALF the effort. [place] lifts, holds or supports trunk or limbs, but provides less than half the effort. 2-Substantial/Maximal Assistance-helper does MORE THAN HALF the effort. [place] lifts or holds trunk or limbs and provides more than half the effort. 5-Ccgibhken-yymurk does ALL the effort. Patient does none of the effort to complete the activity. Or, the assistance of 2 or more helpers is required for the patient to complete the activity. If activity was not attempted, code reason: 7-Patient Refused. 9-Not Applicable-not attempted and the patient did not perform the activity before the current illness, exacerbation or injury. 10-Not Attempted due to Environmental Limitations-(lack of equipment, weather restraints, etc.). 88-Not Attempted due to Medical Conditions or Safety Concerns. Sit to Stand (QC): 5 Toilet Transfer (QC): 4 Weight Bearing Full Weight Bearing Full Weight Bearing Gait Training Does the Patient Walk?: Yes Distance: 175' Walk 10 feet (QC): 5 Walk 50 ft with 2 Turns(QC): 5 Walk 150 ft (QC): 5 Gait Persons Needed: 1 Gait Assistive Device: FWW Exercises Seated Therapy Exercises: Ankle pumps, Long arc quads, Hip flexion, Hip abd/add, Glut set Seated Reps: 10 NuStep Minutes: 15 NuStep Workload: 4 Treatments Pt educ. given to pt & Sp as questions asked about ARU expectations & progress, as well as how pt will show improvement. Pt completes Seated EX then TF to standing and amb. in hallway & to Therapy Gym. Pt uses NuStep and takes short RB. Pt amb. in hallway before returning to room to use BR and return to recliner for lunch. All needs met, call light in hand. Assessment Current Status: Good Progress Pt reports headache and needs occasional RB for fatigue and pain but pt is improving with mobility. PT Short Term Goals Short Term Goals Time Frame: Oct 24, 2021 Roll Left & Right: 6 Sit to lyin Lying to sitting on side of be: 6 Sit to stand: 4 (SBA) Chair/cov-el-jhvgi transfer: 4 (SBA) Walk 10 feet: 4 (SBA) Walk 50 feet with two turns: 4 (SBA) Walk 150 feet: 4 (SBA) PT Assisted Goals Assisted Goals PT Assisted Goals Time Frame: Nov 07, 2021 Roll Left & Right (QC): 6 Sit to Lying (QC): 6 Lying-Sitting on Side/Bed(QC): 6 Sit to Stand (QC): 6 Chair/Jhp-dh-Vienn Xfer(QC): 6 Toilet Transfer (QC): 6 Car Transfer (QC): 6 Does the Patient Walk: Yes Walk 10 feet (QC): 6 Walk 50ft with 2 Turns (QC): 6 Walk 150 ft (QC): 6 Walking 10ft on Uneven Surface: 6 1 Step (curb) (QC): 4 (SBA) 4 Steps (QC): 4 (SBA) 12 Steps (QC): 4 (SBA) Picking up an Object (QC): 6 Wheel 50 feet with 2 turns (QC: 9 Wheel 150 feet: 9 PT Plan Problem List Problem List: Activity Tolerance, Functional Strength Treatment/Plan Treatment Plan: Continue Plan of Care Treatment Plan: Bed Mobility, Education, Functional Activity Jorge, Functional Strength, Group Therapy, Gait, Safety, Therapeutic Exercise, Transfers Treatment Duration: Nov 07, 2021 Frequency: At least 5 of 7 days/Wk (IRF) Estimated Hrs Per Day: 1.5 hours per day Patient and/or Family Agrees t: Yes Safety Risks/Education Patient Education: Gait Training, Transfer Techniques, Correct Positioning, Safety Issues Teaching Recipient: Patient, Significant Other Teaching Methods: Discussion Response to Teaching: Verbalize Understanding Time/GCodes Time In: 1100 Time Out: 1215 Total Billed Treatment Time: 75 Total Billed Treatment 1, FA x2 (25m), GT (20m)& EX x2 (30m) MARIE ONEIL CUSTOMER GREETER Oct 18, 2021 13:20
[2021-10-18 17:12] VITALS: BP 160/71
[2021-10-18 20:10] VITALS: BP 118/74
[2021-10-18] MEDS: HYDROCORTISONE 2.5% CREAM (ANUSOL-HC) 30 GM TOP SCH (21:00)
[2021-10-18] MEDS: ACETAMINOPHEN 325 MG TABLET PO PRN (22:28)
[2021-10-19] MEDS: inSUlin ASPART (NovoLOG) 1 UNIT/0.01 ML (CHARGE PER UNIT) SC SCH ×4 (06:08→21:09)
[2021-10-19] MEDS: MULTIVIT W/MINERALS TAB (THERAGRAN M) PO SCH (06:14)
--- NOTE | 2021-10-19 06:33 | PM&R Progress Note ---
Subjective HPI/CC On Admission Date Seen by Provider: Oct 19, 2021 Time Seen by Provider: 12:30 Subjective/Events-last exam 10/19/2021: Pt is doing really well Hemorrhoid pain but declines cream and suppository Blood sugar 140 to 207 will monitor trend Large BM yesterday after no BM x 2 weeks 10/18/2021: Doing well Sleeping well TORREZ improved with pain meds No falls Working with therapy Review of Systems General: Fatigue, Malaise Objective Exam Vital Signs Vital Signs Date Time Temp Pulse Resp B/P (MAP) Pulse Ox O2 Delivery O2 Flow Rate FiO2 10/19/21 09:11 Room Air 10/19/21 07:43 36.6 95 16 123/74 (90) 98 Capillary Refill : General Appearance: No Apparent Distress, WD/WN, Chronically ill HEENT: PERRL/EOMI, Normal ENT Inspection, Pharynx Normal Neck: Full Range of Motion, Normal Inspection, Non Tender, Supple, Carotid Bruit Respiratory: Chest Non Tender, Lungs Clear, Normal Breath Sounds, No Accessory Muscle Use, No Respiratory Distress Cardiovascular: Regular Rate, Rhythm, No Edema, No Gallop, No JVD, No Murmur, Normal Peripheral Pulses Gastrointestinal: Normal Bowel Sounds, No Organomegaly, No Pulsatile Mass, Non Tender, Soft Back: Normal Inspection, No CVA Tenderness, No Vertebral Tenderness Extremity: Normal Capillary Refill, Normal Inspection, Normal Range of Motion, Non Tender, No Calf Tenderness, No Pedal Edema Neurologic/Psychiatric: Alert, Oriented x3, Normal Mood/Affect, cardiac cath lab manager II-XII Norm as Tested, Abnormal Gait, Depressed Affect, Motor Weakness Skin: Normal Color, Warm/Dry, Other (incisions of scalp healing well) Lymphatic: No Adenopathy Results/Procedures Lab Patient resulted labs reviewed. FIM Transfers Therapy Code Descriptions/Definitions Functional [place] Measure: 0=Not Assessed/NA 4=Minimal Assistance 1=Total Assistance 5=Supervision or Setup 2=Maximal Assistance 6=Modified [place] 3=Moderate Assistance 7=Complete IndependenceSCALE: Activities may be completed with or without assistive devices. 3-Wnwhsfyaqx-pdvttow completes the activity by him/herself with no assistance from a helper. 5-Set-up or Clean-up Assistance-helper sets up or cleans up; patient completes activity. [place] assists only prior to or following the activity. 4-Supervision or Touching Assistance-helper provides verbal cues and/or touching/steadying and/or contact guard assistance as patient completes activity. Assistance may be provided throughout the activity or intermittently. 3-Partial/Moderate Assistance-helper does LESS THAN HALF the effort. [place] lifts, holds or supports trunk or limbs, but provides less than half the effort. 2-Substantial/Maximal Assistance-helper does MORE THAN HALF the effort. [place] lifts or holds trunk or limbs and provides more than half the effort. 2-Kueuzxwls-amiorf does ALL the effort. Patient does none of the effort to complete the activity. Or, the assistance of 2 or more helpers is required for the patient to complete the activity. If activity was not attempted, code reason: 7-Patient Refused. 9-Not Applicable-not attempted and the patient did not perform the activity before the current illness, exacerbation or injury. 10-Not Attempted due to Environmental Limitations-(lack of equipment, weather restraints, etc.). 88-Not Attempted due to Medical Conditions or Safety Concerns. Roll Left to Right (QC): 6 Sit to Lying (QC): 6 Sit to Stand (QC): 5 Chair/Agb-ut-Snbkn Xfer(QC): 4 (CGA) Car Transfer (QC): 4 (CGA) Gait Training Does the Patient Walk?: Yes Distance: 175' Walk 10 feet (QC): 5 Walk 50 ft with 2 Turns(QC): 5 Walk 150 ft (QC): 5 Walking 10ft/uneven surface-QC: 4 (CGA) Gait Persons Needed: 1 Gait Assistive Device: FWW Wheelchair Training Does the Pt Use a Wheelchair?: Yes Wheel 50 ft with 2 turns (QC): 9 Wheel 150 ft (QC): 6 Type of Wheelchair: Manual Stair Training #of Steps: 4 1 Step (curb) (QC): 4 (CGA) 4 Steps (QC): 4 (CGA) 12 Steps (QC): 88 Balance Picking up an Object (QC): 4 (CGA using wood flour miller) ADL-Treatment Eating (QC): 6 Oral Hygiene (QC): 4 Shower/Bathe Self (QC): 5 Upper Body Dressing (QC): 5 Lower Body Dressing (QC): 5 On/Off Footwear (QC): 5 Toileting Hygiene (QC): 6 Toilet Transfer (QC): 4 Assessment/Plan Assessment and Plan Assess & Plan/Chief Complaint Assessment: s/p bilateral hematoma s/p elijah holes by Dr Garber AF Previous OAC HTN DM Hemorrhoids Post op constipation severe now resolved Plan: Hold OAC Pain control Monitor closely 10/18/2021: Pain control Aggressive therapy 10/19/2021: Hemorrhoid cream Monitor pain (1) Subdural hematoma SRINIVAS RIVERA DO Oct 19, 2021 06:33
[2021-10-19 07:43] VITALS: BP 123/74
[2021-10-19] MEDS: SENNA W/DOCUSATE (SENOKOT S) TABLET PO SCH ×2 (08:13→21:09)
[2021-10-19] MEDS: EMPAGLIFLOZIN 10 MG TABLET (JARDIANCE) PO SCH (08:13)
[2021-10-19] MEDS: polyethylene glycoL POWDER 17 GM (MIRALAX) PACK PO SCH ×2 (08:13→21:09)
[2021-10-19] MEDS: TAMSULOSIN 0.4 MG (FLOMAX) CAP PO SCH (08:13)
[2021-10-19] MEDS: metFORMIN 500 MG (GLUCOPHAGE) TAB PO SCH ×2 (08:13→17:56)
[2021-10-19] MEDS: DOCUSATE SODIUM 100 MG (COLACE) CAP PO SCH ×2 (08:13→21:08)
[2021-10-19] MEDS: lisINopril 20 MG (PRINIVIL) TABLET PO SCH (08:13)
[2021-10-19] MEDS: HYDROCORTISONE 2.5% CREAM (ANUSOL-HC) 30 GM TOP SCH ×2 (08:14→21:09)
--- NOTE | 2021-10-19 10:12 | Occupational Ther Daily Note ---
OT Current Status-Daily Note Subjective Pt reports feeling tired this am. Appearance Pt returned to sitting in chair, all needs within reach. Mental Status/Objective Patient Orientation: Person, Place, Situation ADL-Treatment Therapy Code Descriptions/Definitions Functional [place] Measure: 0=Not Assessed/NA 4=Minimal Assistance 1=Total Assistance 5=Supervision or Setup 2=Maximal Assistance 6=Modified [place] 3=Moderate Assistance 7=Complete IndependenceSCALE: Activities may be completed with or without assistive devices. 6-Mwvyttfngf-hmposbx completes the activity by him/herself with no assistance from a helper. 5-Set-up or Clean-up Assistance-helper sets up or cleans up; patient completes activity. [place] assists only prior to or following the activity. 4-Supervision or Touching Assistance-helper provides verbal cues and/or touching/steadying and/or contact guard assistance as patient completes activity. Assistance may be provided throughout the activity or intermittently. 3-Partial/Moderate Assistance-helper does LESS THAN HALF the effort. [place] lifts, holds or supports trunk or limbs, but provides less than half the effort. 2-Substantial/Maximal Assistance-helper does MORE THAN HALF the effort. [place] lifts or holds trunk or limbs and provides more than half the effort. 6-Fscmcmldo-luhukb does ALL the effort. Patient does none of the effort to complete the activity. Or, the assistance of 2 or more helpers is required for the patient to complete the activity. If activity was not attempted, code reason: 7-Patient Refused. 9-Not Applicable-not attempted and the patient did not perform the activity before the current illness, exacerbation or injury. 10-Not Attempted due to Environmental Limitations-(lack of equipment, weather restraints, etc.). 88-Not Attempted due to Medical Conditions or Safety Concerns. Eating (QC): 6 Oral Hygiene (QC): 6 Upper Body Dressing (QC): 5 Lower Body Dressing (QC): 5 On/Off Footwear: 5 Toileting Hygiene (QC): 6 Toilet Transfer (QC): 4 1st session ([id number]) Pt sitting on toilet at OT arrival. He reports poor sleep and increased fatigue this date. He stood at sink for grooming tasks, no unsteadiness observed. Shorts donned seated in chair, set up assist only. Pt moves slower this date when compared to past session. Extra time to complete. Other Treatment 2nd session ([id number]) OT issued and instructed pt on HEP with yellow theraband. Able to complete all movements through full range. Min cues for correct technique, further education will be needed to ensure independence with exercise program. 1x8 all planes. Education OT Patient Education: Correct positioning, Energy conservation, Exercise program, Modified ADL techniques, Progress toward Goal/Update tx plan, Purpose of tx/functional activities, Safety issues Teaching Recipient: Patient Teaching Methods: Demonstration, Discussion Response to Teaching: Verbalize Understanding, Return Demonstration, Reinforcement Needed OT Short Term Goals Short Term Goals Time Frame: Oct 24, 2021 Eatin Oral hygiene: 6 Toileting hygiene: 6 Shower/bathe self: 4 Upper body dressin Lower body dressin Putting on/taking off footwear: 6 OT Assisted Goals Business Support Manager Goals Time Frame: Oct 30, 2021 Eating (QC): 6 Oral Hygiene (QC): 6 Toileting Hygiene (QC): 6 Shower/Bathe Self (QC): 5 Upper Body Dressing (QC): 6 Lower Body Dressing (QC): 6 On/Off Footwear (QC): 6 1=Demonstrate adherence to instructed precautions during ADL tasks. 2=Patient will verbalize/demonstrate understanding of assistive devices/modifications for ADL. 3=Patient will improve strength/tolerance for activity to enable patient to perform ADL's. OT Education/Plan Problem List/Assessment Assessment: Decreased Activ Tolerance, Decreased UE Strength, Impaired Funct Balance, Impaired I ADL's, Impaired Self-Care Skills Discharge Recommendations Plan/Recommendations: Continue POC Treatment Plan/Plan of Care Treatment,Training & Education: Yes Patient would benefit from OT for education, treatment and training to promote independence in ADL's, mobility, safety and/or upper extremity function for AD L's. Plan of Care: ADL Retraining, Cognitive Retraining, Concurrent Therapy, Functional Mobility, Group Exercise/Act as Ind, UE Funct Exercise/Act Treatment Duration: Oct 30, 2021 Frequency: At least 5 of 7 days/Wk (IRF) Estimated Hrs Per Day: 1.5 hours per day (75-90 min/day ) Agreement: Yes Rehab Potential: Good Time/GCodes Start Time: 07:30 (0900) Stop Time: 08:10 (919) Total Time Billed (hr/min): 60 Billed Treatment Time 1st visit ADL x3 (40 min) 2nd visit EX (20 min) Almaz Shultz OT Oct 19, 2021 10:12
--- NOTE | 2021-10-19 14:41 | Therapy Group Daily Note ---
Therapy Daily Group Note Patient Education Topic Home Safety Exercises Balance, Sit to/from Stand, Walking, Fine Motor Session Ratio (pt:therapist): 3:1 Goal of Session: Education on ARU Expectations, Home Safety Strategies, Memory Strategies, UE/LE Strengthing, Safety with Transfers Goal Met for this Session: Yes Pt Benefit of Group: Contributions to Others, F/U Use of Strategies @Home, Increased Functional Safety, Increased Functional Strength, Improved Cognition, Recognition of Peers, Socialization Other/Notes Pt ambulated using FWW with CGA to therapy gym for OT/PT group. Group consisted of introductions(name, place living, first car), socialization, sit <--> stands, memory activity, ambulation with AD while picking items off of various surfaces then replacing, educational topics of ARU description/orientation and home safety. Pt introduced self appropriately and actively listened to peers. Pt actively listened to educational topics and nodding head in affirmative in acknowledgement of topics. Pt attempted 3x's at memory and made one match. After session, pt requested to use bathroom. Pt educated to use call light when finished. All needs met in room. Start Time: 13:00 Stop Time: 14:15 Total Billed Treatment Time: 75 Total Billed Treatment 1-GRP NAN CALZADA Oct 19, 2021 14:41
--- NOTE | 2021-10-19 15:17 | Physical Therapy Daily Note ---
PT Daily Note-Current Subjective Pt in recliner upon arrival and agrees to PT. Says he tightens up when he has been sitting for a long time. Pain Numeric Pain Scale: 5-Moderate Pain Location Body Site: Head Pain Description: Ache Mental Status Patient Orientation: Person, Place, Time, Situation Transfers SCALE: Activities may be completed with or without assistive devices. 1-Yoyurihgzl-osnouqo completes the activity by him/herself with no assistance from a helper. 5-Set-up or Clean-up Assistance-helper sets up or cleans up; patient completes activity. [place] assists only prior to or following the activity. 4-Supervision or Touching Assistance-helper provides verbal cues and/or touch ing/steadying and/or contact guard assistance as patient completes activity. Assistance may be provided throughout the activity or intermittently. 3-Partial/Moderate Assistance-helper does LESS THAN HALF the effort. [place] lifts, holds or supports trunk or limbs, but provides less than half the effort. 2-Substantial/Maximal Assistance-helper does MORE THAN HALF the effort. [place] lifts or holds trunk or limbs and provides more than half the effort. 0-Wcgwjxczh-ralktb does ALL the effort. Patient does none of the effort to complete the activity. Or, the assistance of 2 or more helpers is required for the patient to complete the activity. If activity was not attempted, code reason: 7-Patient Refused. 9-Not Applicable-not attempted and the patient did not perform the activity before the current illness, exacerbation or injury. 10-Not Attempted due to Environmental Limitations-(lack of equipment, weather restraints, etc.). 88-Not Attempted due to Medical Conditions or Safety Concerns. Sit to Stand (QC): 5 Weight Bearing Full Weight Bearing Full Weight Bearing Gait Training Does the Patient Walk?: Yes Distance: 150' x1 250' x 1 Walk 10 feet (QC): 5 Walk 50 ft with 2 Turns(QC): 5 Walk 150 ft (QC): 5 Gait Persons Needed: 1 Gait Assistive Device: FWW Exercises Seated Therapy Exercises: Ankle pumps, Long arc quads, Hip flexion, Hamstring Curls, Hip abd/add, Glut set Seated Reps: 30 Standing: Sit to Stand Standing Reps: 5 NuStep Minutes: 18 NuStep Workload: 4 Treatments Pt amb from room to therapy gym and TFs to nustep. Pt then amb into [place] and then amb back to room. TFs to recliner and performs seated exs. All needs met and call light nearby as PT departs. Assessment Current Status: Good Progress Pt able to increase amb distance this date. Pt required verbal cues for TFs. PT Short Term Goals Short Term Goals Time Frame: Oct 24, 2021 Roll Left & Right: 6 Sit to lyin Lying to sitting on side of be: 6 Sit to stand: 4 (SBA) Chair/fgx-vp-ufyex transfer: 4 (SBA) Walk 10 feet: 4 (SBA) Walk 50 feet with two turns: 4 (SBA) Walk 150 feet: 4 (SBA) PT Residential Plumber Goals Residential Plumber Goals PT Residential Plumber Goals Time Frame: Nov 07, 2021 Roll Left & Right (QC): 6 Sit to Lying (QC): 6 Lying-Sitting on Side/Bed(QC): 6 Sit to Stand (QC): 6 Chair/Hhe-ya-Swgbp Xfer(QC): 6 Toilet Transfer (QC): 6 Car Transfer (QC): 6 Does the Patient Walk: Yes Walk 10 feet (QC): 6 Walk 50ft with 2 Turns (QC): 6 Walk 150 ft (QC): 6 Walking 10ft on Uneven Surface: 6 1 Step (curb) (QC): 4 (SBA) 4 Steps (QC): 4 (SBA) 12 Steps (QC): 4 (SBA) Picking up an Object (QC): 6 Wheel 50 feet with 2 turns (QC: 9 Wheel 150 feet: 9 PT Plan Problem List Problem List: Activity Tolerance, Functional Strength Treatment/Plan Treatment Plan: Continue Plan of Care Treatment Plan: Bed Mobility, Education, Functional Activity Jorge, Functional Strength, Group Therapy, Gait, Safety, Therapeutic Exercise, Transfers Treatment Duration: Nov 07, 2021 Frequency: At least 5 of 7 days/Wk (IRF) Estimated Hrs Per Day: 1.5 hours per day Patient and/or Family Agrees t: Yes Safety Risks/Education Patient Education: Correct Positioning Teaching Recipient: Patient Teaching Methods: Discussion Response to Teaching: Verbalize Understanding Time/GCodes Time In: 1100 Time Out: 1200 Total Billed Treatment Time: 60 Total Billed Treatment 1, Ex x 3 (40min), GT (20min) MAITE ALARCON BARREL BRIDGE ASSEMBLER Oct 19, 2021 15:16
[2021-10-19 20:19] VITALS: BP 121/80
[2021-10-19] MEDS: ACETAMINOPHEN 325 MG TABLET PO PRN (21:08)
[2021-10-19] MEDS: MELATONIN 3 MG TABLET PO PRN (22:36)
[2021-10-20] MEDS: MULTIVIT W/MINERALS TAB (THERAGRAN M) PO SCH (06:24)
[2021-10-20] MEDS: inSUlin ASPART (NovoLOG) 1 UNIT/0.01 ML (CHARGE PER UNIT) SC SCH ×4 (06:35→21:00)
--- NOTE | 2021-10-20 06:57 | PM&R Progress Note ---
Subjective HPI/CC On Admission Date Seen by Provider: Oct 20, 2021 Time Seen by Provider: 11:00 Subjective/Events-last exam 10/20/2021: Doing well Family visiting No pain except for headache Ambulating around pretty well 10/19/2021: Pt is doing really well Hemorrhoid pain but declines cream and suppository Blood sugar 140 to 207 will monitor trend Large BM yesterday after no BM x 2 weeks 10/18/2021: Doing well Sleeping well TORREZ improved with pain meds No falls Working with therapy Review of Systems General: Fatigue, Malaise Objective Exam Vital Signs Vital Signs Date Time Temp Pulse Resp B/P (MAP) Pulse Ox O2 Delivery O2 Flow Rate FiO2 10/20/21 09:00 Room Air 10/20/21 07:20 36.4 94 18 122/83 (96) 96 Capillary Refill : General Appearance: No Apparent Distress, WD/WN, Chronically ill HEENT: PERRL/EOMI, Normal ENT Inspection, Pharynx Normal Neck: Full Range of Motion, Normal Inspection, Non Tender, Supple, Carotid Bruit Respiratory: Chest Non Tender, Lungs Clear, Normal Breath Sounds, No Accessory Muscle Use, No Respiratory Distress Cardiovascular: Regular Rate, Rhythm, No Edema, No Gallop, No JVD, No Murmur, Normal Peripheral Pulses Gastrointestinal: Normal Bowel Sounds, No Organomegaly, No Pulsatile Mass, Non Tender, Soft Back: Normal Inspection, No CVA Tenderness, No Vertebral Tenderness Extremity: Normal Capillary Refill, Normal Inspection, Normal Range of Motion, Non Tender, No Calf Tenderness, No Pedal Edema Neurologic/Psychiatric: Alert, Oriented x3, Normal Mood/Affect, pharmaceutical detailer II-XII Norm as Tested, Abnormal Gait, Depressed Affect, Motor Weakness Skin: Normal Color, Warm/Dry, Other (incisions of scalp healing well) Lymphatic: No Adenopathy Results/Procedures Lab Patient resulted labs reviewed. FIM Transfers Therapy Code Descriptions/Definitions Functional [place] Measure: 0=Not Assessed/NA 4=Minimal Assistance 1=Total Assistance 5=Supervision or Setup 2=Maximal Assistance 6=Modified [place] 3=Moderate Assistance 7=Complete IndependenceSCALE: Activities may be completed with or without assistive devices. 4-Flnlygjdte-kstzbsu completes the activity by him/herself with no assistance from a helper. 5-Set-up or Clean-up Assistance-helper sets up or cleans up; patient completes a ctivity. [place] assists only prior to or following the activity. 4-Supervision or Touching Assistance-helper provides verbal cues and/or touching/steadying and/or contact guard assistance as patient completes activity. Assistance may be provided throughout the activity or intermittently. 3-Partial/Moderate Assistance-helper does LESS THAN HALF the effort. [place] lifts, holds or supports trunk or limbs, but provides less than half the effort. 2-Substantial/Maximal Assistance-helper does MORE THAN HALF the effort. [place] lifts or holds trunk or limbs and provides more than half the effort. 5-Swbuzryeb-qpevzw does ALL the effort. Patient does none of the effort to complete the activity. Or, the assistance of 2 or more helpers is required for the patient to complete the activity. If activity was not attempted, code reason: 7-Patient Refused. 9-Not Applicable-not attempted and the patient did not perform the activity before the current illness, exacerbation or injury. 10-Not Attempted due to Environmental Limitations-(lack of equipment, weather restraints, etc.). 88-Not Attempted due to Medical Conditions or Safety Concerns. Roll Left to Right (QC): 6 Sit to Lying (QC): 6 Sit to Stand (QC): 5 Chair/Bhx-jr-Vyneu Xfer(QC): 4 (CGA) Car Transfer (QC): 4 (CGA) Gait Training Does the Patient Walk?: Yes Distance: 150' x1 250' x 1 Walk 10 feet (QC): 5 Walk 50 ft with 2 Turns(QC): 5 Walk 150 ft (QC): 5 Walking 10ft/uneven surface-QC: 4 (CGA) Gait Persons Needed: 1 Gait Assistive Device: FWW Wheelchair Training Does the Pt Use a Wheelchair?: Yes Wheel 50 ft with 2 turns (QC): 9 Wheel 150 ft (QC): 6 Type of Wheelchair: Manual Stair Training #of Steps: 4 1 Step (curb) (QC): 4 (CGA) 4 Steps (QC): 4 (CGA) 12 Steps (QC): 88 Balance Picking up an Object (QC): 4 (CGA using director business systems) ADL-Treatment Eating (QC): 6 Oral Hygiene (QC): 6 Shower/Bathe Self (QC): 5 Upper Body Dressing (QC): 5 Lower Body Dressing (QC): 5 On/Off Footwear (QC): 5 Toileting Hygiene (QC): 6 Toilet Transfer (QC): 4 Assessment/Plan Assessment and Plan Assess & Plan/Chief Complaint xcAssessment: s/p bilateral hematoma s/p elijah holes by Dr Garber AF Previous OAC HTN DM Hemorrhoids Post op constipation severe now resolved Plan: Hold OAC Pain control Monitor closely 10/18/2021: Pain control Aggressive therapy 10/19/2021: Hemorrhoid cream Monitor pain 10/20/2021: Supportive care Monitor closely (1) Subdural hematoma SRINIVAS RIVERA DO Oct 20, 2021 06:57
[2021-10-20 07:20] VITALS: BP 122/83
[2021-10-20] MEDS: HYDROcodone/APAP 5 MG/325 MG (LORTAB) TAB PO PRN (07:43)
[2021-10-20] MEDS: metFORMIN 500 MG (GLUCOPHAGE) TAB PO SCH ×2 (07:44→18:01)
[2021-10-20] MEDS: TAMSULOSIN 0.4 MG (FLOMAX) CAP PO SCH (07:44)
[2021-10-20] MEDS: lisINopril 20 MG (PRINIVIL) TABLET PO SCH (07:44)
[2021-10-20] MEDS: DOCUSATE SODIUM 100 MG (COLACE) CAP PO SCH ×2 (07:44→21:48)
[2021-10-20] MEDS: EMPAGLIFLOZIN 10 MG TABLET (JARDIANCE) PO SCH (07:45)
[2021-10-20] MEDS: SENNA W/DOCUSATE (SENOKOT S) TABLET PO SCH ×2 (07:45→21:00)
[2021-10-20] MEDS: HYDROCORTISONE 2.5% CREAM (ANUSOL-HC) 30 GM TOP SCH ×2 (09:29→21:00)
[2021-10-20] MEDS: polyethylene glycoL POWDER 17 GM (MIRALAX) PACK PO SCH ×2 (09:29→21:00)
--- NOTE | 2021-10-20 13:29 | Physical Therapy Daily Note ---
PT Daily Note-Current Subjective Pt sitting in recliner visiting with family & neighbor upon arrival. Pt agrees to PT. Pain Numeric Pain Scale: 1 Location Body Site: Head Pain Description: Ache Mental Status Patient Orientation: Person, Place, Situation Transfers SCALE: Activities may be completed with or without assistive devices. 6-Qvdsrvfrub-fgyxlix completes the activity by him/herself with no assistance from a helper. 5-Set-up or Clean-up Assistance-helper sets up or cleans up; patient completes activity. [place] assists only prior to or following the activity. 4-Supervision or Touching Assistance-helper provides verbal cues and/or touching/steadying and/or contact guard assistance as patient completes activity. Assistance may be provided throughout the activity or intermittently. 3-Partial/Moderate Assistance-helper does LESS THAN HALF the effort. [place] lifts, holds or supports trunk or limbs, but provides less than half the effort. 2-Substantial/Maximal Assistance-helper does MORE THAN HALF the effort. [place] lifts or holds trunk or limbs and provides more than half the effort. 9-Eoomvzaen-lrpvle does ALL the effort. Patient does none of the effort to complete the activity. Or, the assistance of 2 or more helpers is required for the patient to complete the activity. If activity was not attempted, code reason: 7-Patient Refused. 9-Not Applicable-not attempted and the patient did not perform the activity before the current illness, exacerbation or injury. 10-Not Attempted due to Environmental Limitations-(lack of equipment, weather restraints, etc.). 88-Not Attempted due to Medical Conditions or Safety Concerns. Sit to Stand (QC): 5 Toilet Transfer (QC): 5 Weight Bearing Full Weight Bearing Full Weight Bearing Gait Training Does the Patient Walk?: Yes Distance: 550' Walk 10 feet (QC): 5 Walk 50 ft with 2 Turns(QC): 5 Walk 150 ft (QC): 5 Gait Assistive Device: FWW Pt is still putting too much weight thru FWW to move to cane at this point in time. Treatments With pt permission, RUG UNDERLAY MACHINE OPERATOR discusses with pt, family & close neighbor progress as well as how pt would progress from FWW to cane. Answered questions about how to know when pt will d/c as no one wants pt to leave too early and amb. w/in home. Pt TF to standing and amb. to BR then amb. in hallway before returning to room to rest in recliner. All needs met, call light next to pt. Assessment Current Status: Good Progress Pt demonstrates improved cognition and conversation w/staff during tx as well as improved mobility and activity tolerance. PT Short Term Goals Short Term Goals Time Frame: Oct 24, 2021 Roll Left & Right: 6 Sit to lyin Lying to sitting on side of be: 6 Sit to stand: 4 (SBA) Chair/vrf-bd-eylkj transfer: 4 (SBA) Walk 10 feet: 4 (SBA) Walk 50 feet with two turns: 4 (SBA) Walk 150 feet: 4 (SBA) PT Electric Power Machine Operator Goals Electric Power Machine Operator Goals PT Skilled Nursing Goals Time Frame: Nov 07, 2021 Roll Left & Right (QC): 6 Sit to Lying (QC): 6 Lying-Sitting on Side/Bed(QC): 6 Sit to Stand (QC): 6 Chair/Cbx-qs-Znxvf Xfer(QC): 6 Toilet Transfer (QC): 6 Car Transfer (QC): 6 Does the Patient Walk: Yes Walk 10 feet (QC): 6 Walk 50ft with 2 Turns (QC): 6 Walk 150 ft (QC): 6 Walking 10ft on Uneven Surface: 6 1 Step (curb) (QC): 4 (SBA) 4 Steps (QC): 4 (SBA) 12 Steps (QC): 4 (SBA) Picking up an Object (QC): 6 Wheel 50 feet with 2 turns (QC: 9 Wheel 150 feet: 9 PT Plan Treatment/Plan Treatment Plan: Continue Plan of Care Treatment Plan: Bed Mobility, Education, Functional Activity Jorge, Functional Strength, Group Therapy, Gait, Safety, Therapeutic Exercise, Transfers Treatment Duration: Nov 07, 2021 Frequency: At least 5 of 7 days/Wk (IRF) Estimated Hrs Per Day: 1.5 hours per day Patient and/or Family Agrees t: Yes Safety Risks/Education Patient Education: Gait Training, Correct Positioning, Safety Issues Teaching Recipient: Patient, Family Teaching Methods: Discussion Response to Teaching: Verbalize Understanding Time/GCodes Time In: 1240 Time Out: 1315 Total Billed Treatment Time: 35 Total Billed Treatment 1, FA (20m) & GT (15m) MARIE ONEIL RUG UNDERLAY MACHINE OPERATOR Oct 20, 2021 13:29
[2021-10-20 20:59] VITALS: BP 109/72
[2021-10-20] MEDS: ACETAMINOPHEN 325 MG TABLET PO PRN (21:48)
[2021-10-20] MEDS: MELATONIN 3 MG TABLET PO PRN (21:48)
[2021-10-21] MEDS: inSUlin ASPART (NovoLOG) 1 UNIT/0.01 ML (CHARGE PER UNIT) SC SCH ×4 (06:45→21:00)
[2021-10-21] MEDS: MULTIVIT W/MINERALS TAB (THERAGRAN M) PO SCH (07:02)
[2021-10-21] MEDS: ACETAMINOPHEN 325 MG TABLET PO PRN (07:10)
[2021-10-21 07:17] VITALS: BP 132/81
[2021-10-21] MEDS: SENNA W/DOCUSATE (SENOKOT S) TABLET PO SCH ×2 (07:56→21:55)
[2021-10-21] MEDS: EMPAGLIFLOZIN 10 MG TABLET (JARDIANCE) PO SCH (07:56)
[2021-10-21] MEDS: lisINopril 20 MG (PRINIVIL) TABLET PO SCH (07:56)
[2021-10-21] MEDS: DOCUSATE SODIUM 100 MG (COLACE) CAP PO SCH ×2 (07:57→21:55)
[2021-10-21] MEDS: metFORMIN 500 MG (GLUCOPHAGE) TAB PO SCH ×2 (07:57→17:58)
[2021-10-21] MEDS: TAMSULOSIN 0.4 MG (FLOMAX) CAP PO SCH (07:57)
[2021-10-21] MEDS: HYDROCORTISONE 2.5% CREAM (ANUSOL-HC) 30 GM TOP SCH ×2 (10:12→21:55)
[2021-10-21] MEDS: polyethylene glycoL POWDER 17 GM (MIRALAX) PACK PO SCH ×2 (10:12→21:55)
[2021-10-21 20:00] VITALS: BP 135/84
[2021-10-21] MEDS: HYDROcodone/APAP 5 MG/325 MG (LORTAB) TAB PO PRN (21:56)
--- NOTE | 2021-10-22 05:55 | PM&R Progress Note ---
Subjective HPI/CC On Admission Date Seen by Provider: Oct 21, 2021 Time Seen by Provider: 12:30 Subjective/Events-last exam 10/21/2021: Late entry inadvertently missed note Headache remains No issues otherwise Ambulating well 10/20/2021: Doing well Family visiting No pain except for headache Ambulating around pretty well 10/19/2021: Pt is doing really well Hemorrhoid pain but declines cream and suppository Blood sugar 140 to 207 will monitor trend Large BM yesterday after no BM x 2 weeks 10/18/2021: Doing well Sleeping well TORREZ improved with pain meds No falls Working with therapy Review of Systems General: Fatigue, Malaise Neurological: Other (torrez) Objective Exam Vital Signs Vital Signs Date Time Temp Pulse Resp B/P (MAP) Pulse Ox O2 Delivery O2 Flow Rate FiO2 10/21/21 21:45 Room Air 10/21/21 20:00 36.4 85 18 135/84 (101) 97 Capillary Refill : General Appearance: No Apparent Distress, WD/WN, Chronically ill HEENT: PERRL/EOMI, Normal ENT Inspection, Pharynx Normal Neck: Full Range of Motion, Normal Inspection, Non Tender, Supple, Carotid Bruit Respiratory: Chest Non Tender, Lungs Clear, Normal Breath Sounds, No Accessory Muscle Use, No Respiratory Distress Cardiovascular: Regular Rate, Rhythm, No Edema, No Gallop, No JVD, No Murmur, Normal Peripheral Pulses Gastrointestinal: Normal Bowel Sounds, No Organomegaly, No Pulsatile Mass, Non Tender, Soft Back: Normal Inspection, No CVA Tenderness, No Vertebral Tenderness Extremity: Normal Capillary Refill, Normal Inspection, Normal Range of Motion, Non Tender, No Calf Tenderness, No Pedal Edema Neurologic/Psychiatric: Alert, Oriented x3, Normal Mood/Affect, 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 FIM Transfers Therapy Code Descriptions/Definitions Functional [place] Measure: 0=Not Assessed/NA 4=Minimal Assistance 1=Total Assistance 5=Supervision or Setup 2=Maximal Assistance 6=Modified [place] 3=Moderate Assistance 7=Complete IndependenceSCALE: Activities may be completed with or without assistive devices. 6-Mogasllacb-tjdswqt completes the activity by him/herself with no assistance from a helper. 5-Set-up or Clean-up Assistance-helper sets up or cleans up; patient completes activity. [place] assists only prior to or following the activity. 4-Supervision or Touching Assistance-helper provides verbal cues and/or touching/steadying and/or contact guard assistance as patient completes activity. Assistance may be provided throughout the activity or intermittently. 3-Partial/Moderate Assistance-helper does LESS THAN HALF the effort. [place] lifts, holds or supports trunk or limbs, but provides less than half the effort. 2-Substantial/Maximal Assistance-helper does MORE THAN HALF the effort. [place] lifts or holds trunk or limbs and provides more than half the effort. 1-Zmgcypnws-stsnus does ALL the effort. Patient does none of the effort to complete the activity. Or, the assistance of 2 or more helpers is required for the patient to complete the activity. If activity was not attempted, code reason: 7-Patient Refused. 9-Not Applicable-not attempted and the patient did not perform the activity before the current illness, exacerbation or injury. 10-Not Attempted due to Environmental Limitations-(lack of equipment, weather restraints, etc.). 88-Not Attempted due to Medical Conditions or Safety Concerns. Roll Left to Right (QC): 6 Sit to Lying (QC): 6 Sit to Stand (QC): 5 Chair/Vmr-vy-Spajy Xfer(QC): 4 (CGA) Car Transfer (QC): 4 (CGA) Gait Training Does the Patient Walk?: Yes Distance: 550' Walk 10 feet (QC): 5 Walk 50 ft with 2 Turns(QC): 5 Walk 150 ft (QC): 5 Walking 10ft/uneven surface-QC: 4 (CGA) Gait Persons Needed: 1 Gait Assistive Device: FWW Wheelchair Training Does the Pt Use a Wheelchair?: Yes Wheel 50 ft with 2 turns (QC): 9 Wheel 150 ft (QC): 6 Type of Wheelchair: Manual Stair Training #of Steps: 4 1 Step (curb) (QC): 4 (CGA) 4 Steps (QC): 4 (CGA) 12 Steps (QC): 88 Balance Picking up an Object (QC): 4 (CGA using safety instruction police officer) ADL-Treatment Eating (QC): 6 Oral Hygiene (QC): 6 Shower/Bathe Self (QC): 5 Upper Body Dressing (QC): 5 Lower Body Dressing (QC): 5 On/Off Footwear (QC): 5 Toileting Hygiene (QC): 6 Toilet Transfer (QC): 4 Assessment/Plan Assessment and Plan Assess & Plan/Chief Complaint Assessment: s/p bilateral hematoma s/p elijah holes by Dr Garber AF Previous OAC HTN DM Hemorrhoids Post op constipation severe now resolved Chronic headache Plan: Hold OAC Pain control Monitor closely 10/18/2021: Pain control Aggressive therapy 10/19/2021: Hemorrhoid cream Monitor pain 10/20/2021: Supportive care Monitor closely 10/21/2021: TORREZ management (1) Subdural hematoma SRINIVAS RIVERA DO Oct 22, 2021 05:55
--- NOTE | 2021-10-22 05:55 | PM&R Progress Note ---
Subjective HPI/CC On Admission Date Seen by Provider: Oct 22, 2021 Time Seen by Provider: 08:30 Subjective/Events-last exam 10/22/2021: Pt is doing really well Working with therapy No falls 10/21/2021: Late entry inadvertently missed note Headache remains No issues otherwise Ambulating well 10/20/2021: Doing well Family visiting No pain except for headache Ambulating around pretty well 10/19/2021: Pt is doing really well Hemorrhoid pain but declines cream and suppository Blood sugar 140 to 207 will monitor trend Large BM yesterday after no BM x 2 weeks 10/18/2021: Doing well Sleeping well TORREZ improved with pain meds No falls Working with therapy Review of Systems General: Fatigue, Malaise Objective Exam Vital Signs Vital Signs Date Time Temp Pulse Resp B/P (MAP) Pulse Ox O2 Delivery O2 Flow Rate FiO2 10/22/21 19:59 36.7 101 16 112/69 (83) 99 Room Air Capillary Refill : General Appearance: No Apparent Distress, WD/WN, Chronically ill HEENT: PERRL/EOMI, Normal ENT Inspection, Pharynx Normal Neck: Full Range of Motion, Normal Inspection, Non Tender, Supple, Carotid Bruit Respiratory: Chest Non Tender, Lungs Clear, Normal Breath Sounds, No Accessory Muscle Use, No Respiratory Distress Cardiovascular: Regular Rate, Rhythm, No Edema, No Gallop, No JVD, No Murmur, Normal Peripheral Pulses Gastrointestinal: Normal Bowel Sounds, No Organomegaly, No Pulsatile Mass, Non Tender, Soft Back: Normal Inspection, No CVA Tenderness, No Vertebral Tenderness Extremity: Normal Capillary Refill, Normal Inspection, Normal Range of Motion, Non Tender, No Calf Tenderness, No Pedal Edema Neurologic/Psychiatric: Alert, Oriented x3, Normal 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 FIM Transfers Therapy Code Descriptions/Definitions Functional [place] Measure: 0=Not Assessed/NA 4=Minimal Assistance 1=Total Assistance 5=Supervision or Setup 2=Maximal Assistance 6=Modified [place] 3=Moderate Assistance 7=Complete IndependenceSCALE: Activities may be completed with or without assistive devices. 5-Scczinhngu-vagvuqw completes the activity by him/herself with no assistance from a helper. 5-Set-up or Clean-up Assistance-helper sets up or cleans up; patient completes activity. [place] assists only prior to or following the activity. 4-Supervision or Touching Assistance-helper provides verbal cues and/or touching/steadying and/or contact guard assistance as patient completes activity. Assistance may be provided throughout the activity or intermittently. 3-Partial/Moderate Assistance-helper does LESS THAN HALF the effort. [place] lifts, holds or supports trunk or limbs, but provides less than half the effort. 2-Substantial/Maximal Assistance-helper does MORE THAN HALF the effort. [place] lifts or holds trunk or limbs and provides more than half the effort. 7-Coutakzlk-platia does ALL the effort. Patient does none of the effort to complete the activity. Or, the assistance of 2 or more helpers is required for the patient to complete the activity. If activity was not attempted, code reason: 7-Patient Refused. 9-Not Applicable-not attempted and the patient did not perform the activity before the current illness, exacerbation or injury. 10-Not Attempted due to Environmental Limitations-(lack of equipment, weather restraints, etc.). 88-Not Attempted due to Medical Conditions or Safety Concerns. Roll Left to Right (QC): 6 Sit to Lying (QC): 6 Sit to Stand (QC): 5 Chair/Akq-aq-Tsivk Xfer(QC): 4 (CGA) Car Transfer (QC): 4 (CGA) Gait Training Does the Patient Walk?: Yes Distance: 550' Walk 10 feet (QC): 5 Walk 50 ft with 2 Turns(QC): 5 Walk 150 ft (QC): 5 Walking 10ft/uneven surface-QC: 4 (CGA) Gait Persons Needed: 1 Gait Assistive Device: FWW Wheelchair Training Does the Pt Use a Wheelchair?: Yes Wheel 50 ft with 2 turns (QC): 9 Wheel 150 ft (QC): 6 Type of Wheelchair: Manual Stair Training #of Steps: 4 1 Step (curb) (QC): 4 (CGA) 4 Steps (QC): 4 (CGA) 12 Steps (QC): 88 Balance Picking up an Object (QC): 4 (CGA using french cord binder) ADL-Treatment Eating (QC): 6 Oral Hygiene (QC): 6 Shower/Bathe Self (QC): 5 Upper Body Dressing (QC): 5 Lower Body Dressing (QC): 5 On/Off Footwear (QC): 5 Toileting Hygiene (QC): 6 Toilet Transfer (QC): 4 Assessment/Plan Assessment and Plan Assess & Plan/Chief Complaint Assessment: s/p bilateral hematoma s/p elijah holes by Dr Shirlene BUTLER Previous OAC HTN DM Hemorrhoids Post op constipation severe now resolved Chronic headache Plan: Hold OAC Pain control Monitor closely 10/18/2021: Pain control Aggressive therapy 10/19/2021: Hemorrhoid cream Monitor pain 10/20/2021: Supportive care Monitor closely 10/21/2021: TORREZ management 10/22/2021: TORREZ management PT OT (1) Subdural hematoma SRINIVAS RIVERA DO Oct 22, 2021 05:55
[2021-10-22 06:09] LABS: BASOPHILS % (AUTO) 1 % (0-10); EOSINOPHILS # (AUTO) 0.1 10^3/uL (0.0-0.3); EOSINOPHILS % (AUTO) 2 % (0-10); HEMATOCRIT 45 % (40-54); HEMOGLOBIN 14.7 g/dL (13.3-17.7); LYMPHOCYTES # (AUTO) 2.1 10^3/uL (1.0-4.0); LYMPHOCYTES % (AUTO) 28 % (12-44); MEAN CORPUSCULAR HEMOGLOBIN 29 pg (25-34); MEAN CORPUSCULAR HGB CONC 33 g/dL (32-36); MEAN CORPUSCULAR VOLUME 90 fL (80-99); MEAN PLATELET VOLUME 9.1 fL (9.0-12.2); MONOCYTES # (AUTO) 0.5 10^3/uL (0.0-1.0); MONOCYTES % (AUTO) 7 % (0-12); NEUTROPHILS # (AUTO) 4.5 10^3/uL (1.8-7.8); NEUTROPHILS % (AUTO) 62 % (42-75); PLATELET COUNT 308 10^3/uL (130-400); WHITE BLOOD COUNT 7.3 10^3/uL (4.3-11.0)
[2021-10-22 06:21] LABS: ALBUMIN 4.2 GM/DL (3.2-4.5); POTASSIUM 4.1 MMOL/L (3.6-5.0)
[2021-10-22 06:22] LABS: CALCIUM 9.2 MG/DL (8.5-10.1)
[2021-10-22 06:23] LABS: TOTAL PROTEIN 7.5 GM/DL (6.4-8.2)
[2021-10-22] MEDS: inSUlin ASPART (NovoLOG) 1 UNIT/0.01 ML (CHARGE PER UNIT) SC SCH ×4 (06:24→21:41)
[2021-10-22 06:25] LABS: BILIRUBIN,TOTAL 0.5 MG/DL (0.1-1.0)
[2021-10-22 06:27] LABS: CREATININE SERUM 0.89 MG/DL (0.60-1.30)
[2021-10-22] MEDS: MULTIVIT W/MINERALS TAB (THERAGRAN M) PO SCH (06:40)
[2021-10-22] MEDS: ACETAMINOPHEN 325 MG TABLET PO PRN (06:40)
[2021-10-22 07:40] VITALS: BP 122/97
[2021-10-22] MEDS: metFORMIN 500 MG (GLUCOPHAGE) TAB PO SCH ×2 (08:45→17:33)
[2021-10-22] MEDS: polyethylene glycoL POWDER 17 GM (MIRALAX) PACK PO SCH ×2 (08:45→19:50)
[2021-10-22] MEDS: lisINopril 20 MG (PRINIVIL) TABLET PO SCH (08:45)
[2021-10-22] MEDS: EMPAGLIFLOZIN 10 MG TABLET (JARDIANCE) PO SCH (08:45)
[2021-10-22] MEDS: DOCUSATE SODIUM 100 MG (COLACE) CAP PO SCH ×2 (08:45→20:22)
[2021-10-22] MEDS: TAMSULOSIN 0.4 MG (FLOMAX) CAP PO SCH (08:45)
[2021-10-22] MEDS: SENNA W/DOCUSATE (SENOKOT S) TABLET PO SCH ×2 (08:45→19:50)
[2021-10-22] MEDS: HYDROCORTISONE 2.5% CREAM (ANUSOL-HC) 30 GM TOP SCH ×2 (08:47→19:54)
--- NOTE | 2021-10-22 08:55 | Occupational Ther Daily Note ---
OT Current Status-Daily Note Subjective Pt reports pain as 4/10, states Tylenol given earlier in morning. Appearance Pt returned to sitting in recliner, all needs within reach. RN in room at therapy departure. Mental Status/Objective Patient Orientation: Person, Place, Situation ADL-Treatment Therapy Code Descriptions/Definitions Functional [place] Measure: 0=Not Assessed/NA 4=Minimal Assistance 1=Total Assistance 5=Supervision or Setup 2=Maximal Assistance 6=Modified [place] 3=Moderate Assistance 7=Complete IndependenceSCALE: Activities may be completed with or without assistive devices. 3-Rewmkhrwwt-amypwvs completes the activity by him/herself with no assistance from a helper. 5-Set-up or Clean-up Assistance-helper sets up or cleans up; patient completes activity. [place] assists only prior to or following the activity. 4-Supervision or Touching Assistance-helper provides verbal cues and/or touching/steadying and/or contact guard assistance as patient completes activity. Assistance may be provided throughout the activity or intermittently. 3-Partial/Moderate Assistance-helper does LESS THAN HALF the effort. [place] lifts, holds or supports trunk or limbs, but provides less than half the effort. 2-Substantial/Maximal Assistance-helper does MORE THAN HALF the effort. [place] lifts or holds trunk or limbs and provides more than half the effort. 1-Qhfovkorj-lnital does ALL the effort. Patient does none of the effort to c omplete the activity. Or, the assistance of 2 or more helpers is required for the patient to complete the activity. If activity was not attempted, code reason: 7-Patient Refused. 9-Not Applicable-not attempted and the patient did not perform the activity before the current illness, exacerbation or injury. 10-Not Attempted due to Environmental Limitations-(lack of equipment, weather restraints, etc.). 88-Not Attempted due to Medical Conditions or Safety Concerns. Eating (QC): 6 Oral Hygiene (QC): 6 Upper Body Dressing (QC): 6 On/Off Footwear: 5 (set up for [place] hose only, indep with socks/shoes) Toileting Hygiene (QC): 6 Toilet Transfer (QC): 6 Patient already partially dressed. He reports he took a shower last night. Grooming tasks performed standing at sink, no LOB or safety concerns observed. Other Treatment Pt ambulated >600 feet with walker and SBA. Min cues to reduce tension through UE's. Good follow through post cues. Pt hesitant to try using a cane. While in gym pt participated in therapeutic activity to simulate retrieving eggs from chicken coop. Pt reports that the egg piles are at two different heights (slightly below hip level and slightly above). Task completed x2, first bout with use of walker, 2nd bout without. When pt was not using walker, he continued to use single UE support on chair/table/etc. No LOB. Min cues for improved body mechanics when reaching for lower heights. Pt also completed standing task while reaching in multiple planes and at different heights (organizing cards in correct suits). Focus on improving balance, standing endurance, reaching, posture, and activity tolerance. 2# wrist weights added to BUE's during activities for added strengthening component. Pt able to demonstrate HEP back to OT. OT upgraded resistance to green theraband. Min cues for improved technique. Tolerates well. 1x10 all planes. Education OT Patient Education: Correct positioning, Energy conservation, Exercise program, Home exercise program, Modified ADL techniques, Progress toward Goal/Update tx plan, Purpose of tx/functional activities, Rehab process, Safety issues Teaching Recipient: Patient Teaching Methods: Demonstration, Discussion Response to Teaching: Verbalize Understanding, Return Demonstration OT Short Term Goals Short Term Goals Time Frame: Oct 24, 2021 Eatin Oral hygiene: 6 Toileting hygiene: 6 Shower/bathe self: 4 Upper body dressin Lower body dressin Putting on/taking off footwear: 6 OT Nursing Home Goals Car Shifter Goals Time Frame: Oct 30, 2021 Eating (QC): 6 Oral Hygiene (QC): 6 Toileting Hygiene (QC): 6 Shower/Bathe Self (QC): 5 Upper Body Dressing (QC): 6 Lower Body Dressing (QC): 6 On/Off Footwear (QC): 6 1=Demonstrate adherence to instructed precautions during ADL tasks. 2=Patient will verbalize/demonstrate understanding of assistive devices/modifications for ADL. 3=Patient will improve strength/tolerance for activity to enable patient to pe rform ADL's. OT Education/Plan Problem List/Assessment Assessment: Decreased Activ Tolerance, Decreased UE Strength, Impaired Funct Balance, Impaired I ADL's Discharge Recommendations Plan/Recommendations: Continue POC Treatment Plan/Plan of Care Treatment,Training & Education: Yes Patient would benefit from OT for education, treatment and training to promote independence in ADL's, mobility, safety and/or upper extremity function for ADL's. Plan of Care: ADL Retraining, Cognitive Retraining, Concurrent Therapy, Functional Mobility, Group Exercise/Act as Ind, UE Funct Exercise/Act Treatment Duration: Oct 30, 2021 Frequency: At least 5 of 7 days/Wk (IRF) Estimated Hrs Per Day: 1.5 hours per day (75-90 min/day ) Agreement: Yes Rehab Potential: Good Time/GCodes Start Time: 07:30 Stop Time: 09:00 Total Time Billed (hr/min): 90 Billed Treatment Time 1 visit ADL x2 (25 min) FA x2 (35 min) EX x2 (30 min) Almaz Shultz OT Oct 22, 2021 08:55
--- NOTE | 2021-10-22 09:53 | Physical Therapy Daily Note ---
PT Daily Note-Current Subjective Patient in recliner pre tx, agrees to PT, has 2/10 headache. Appearance Patient in recliner post tx with nurse call, phone, tray, all needs met. Mental Status Patient Orientation: Person, Place, Situation Transfers SCALE: Activities may be completed with or without assistive devices. 6-Wcvkgglbgc-zhyvpup completes the activity by him/herself with no assistance from a helper. 5-Set-up or Clean-up Assistance-helper sets up or cleans up; patient completes activity. [place] assists only prior to or following the activity. 4-Supervision or Touching Assistance-helper provides verbal cues and/or touching/steadying and/or contact guard assistance as patient completes activity. Assistance may be provided throughout the activity or intermittently. 3-Partial/Moderate Assistance-helper does LESS THAN HALF the effort. [place] lifts, holds or supports trunk or limbs, but provides less than half the effort. 2-Substantial/Maximal Assistance-helper does MORE THAN HALF the effort. [place] lifts or holds trunk or limbs and provides more than half the effort. 1-Hrxazftew-hektgv does ALL the effort. Patient does none of the effort to complete the activity. Or, the assistance of 2 or more helpers is required for the patient to complete the activity. If activity was not attempted, code reason: 7-Patient Refused. 9-Not Applicable-not attempted and the patient did not perform the activity before the current illness, exacerbation or injury. 10-Not Attempted due to Environmental Limitations-(lack of equipment, weather restraints, etc.). 88-Not Attempted due to Medical Conditions or Safety Concerns. Sit to Stand (QC): 6 Chair/Wur-cx-Gltum Xfer(QC): 6 Weight Bearing Full Weight Bearing Full Weight Bearing Gait Training Distance: 800', 120' Walk 10 feet (QC): 6 Walk 50 ft with 2 Turns(QC): 6 Walk 150 ft (QC): 6 Gait Assistive Device: FWW slow but steady ambulation Exercises Standing: Hip Abduction, Heel/toe raises, Mini squats Standing Reps: 20 LAQ alternating for 5 min with 2# ankle weights NuStep Minutes: 15 NuStep Workload: 5 Treatments transfers, ambulation, functional strengthening Assessment Current Status: Fair Progress good improvement, independent with most mobility PT Short Term Goals Short Term Goals Time Frame: Oct 24, 2021 Roll Left & Right: 6 Sit to lyin Lying to sitting on side of be: 6 Sit to stand: 4 (SBA) Chair/rqf-qy-wlyag transfer: 4 (SBA) Walk 10 feet: 4 (SBA) Walk 50 feet with two turns: 4 (SBA) Walk 150 feet: 4 (SBA) PT Food Photographer Goals Food Photographer Goals PT Skilled Nursing Goals Time Frame: Nov 07, 2021 Roll Left & Right (QC): 6 Sit to Lying (QC): 6 Lying-Sitting on Side/Bed(QC): 6 Sit to Stand (QC): 6 Chair/Ryd-iw-Bjlvg Xfer(QC): 6 Toilet Transfer (QC): 6 Car Transfer (QC): 6 Does the Patient Walk: Yes Walk 10 feet (QC): 6 Walk 50ft with 2 Turns (QC): 6 Walk 150 ft (QC): 6 Walking 10ft on Uneven Surface: 6 1 Step (curb) (QC): 4 (SBA) 4 Steps (QC): 4 (SBA) 12 Steps (QC): 4 (SBA) Picking up an Object (QC): 6 Wheel 50 feet with 2 turns (QC: 9 Wheel 150 feet: 9 PT Plan Problem List Problem List: Activity Tolerance, Functional Strength, Safety, Balance, Gait, Transfer, ROM Treatment/Plan Treatment Plan: Continue Plan of Care Treatment Plan: Bed Mobility, Education, Functional Activity Jorge, Functional Strength, Group Therapy, Gait, Safety, Therapeutic Exercise, Transfers Treatment Duration: Nov 07, 2021 Frequency: At least 5 of 7 days/Wk (IRF) Estimated Hrs Per Day: 1.5 hours per day Patient and/or Family Agrees t: Yes Safety Risks/Education Patient Education: Gait Training, Transfer Techniques, Correct Positioning, Safety Issues Teaching Recipient: Patient Teaching Methods: Demonstration, Discussion Response to Teaching: Reinforcement Needed Time/GCodes Time In: 0900 Time Out: 1000 Total Billed Treatment Time: 60 Total Billed Treatment 1 visit EX 30' FA 30' SPENCER PÉREZ PT Oct 22, 2021 09:53
--- NOTE | 2021-10-22 11:52 | Physical Therapy Daily Note ---
PT Daily Note-Current Subjective Patient in recliner pre tx, agrees to PT, voices no complaints of pain. Appearance Patient in recliner post tx with nurse call, phone, tray, all needs met. Mental Status Patient Orientation: Person, Place, Situation Transfers SCALE: Activities may be completed with or without assistive devices. 4-Jgqykxvxrr-vpdkndi completes the activity by him/herself with no assistance from a helper. 5-Set-up or Clean-up Assistance-helper sets up or cleans up; patient completes activity. [place] assists only prior to or following the activity. 4-Supervision or Touching Assistance-helper provides verbal cues and/or touching/steadying and/or contact guard assistance as patient completes activity. Assistance may be provided throughout the activity or intermittently. 3-Partial/Moderate Assistance-helper does LESS THAN HALF the effort. [place] lifts, holds or supports trunk or limbs, but provides less than half the effort. 2-Substantial/Maximal Assistance-helper does MORE THAN HALF the effort. [place] lifts or holds trunk or limbs and provides more than half the effort. 7-Olpvforsk-wownze does ALL the effort. Patient does none of the effort to complete the activity. Or, the assistance of 2 or more helpers is required for the patient to complete the activity. If activity was not attempted, code reason: 7-Patient Refused. 9-Not Applicable-not attempted and the patient did not perform the activity before the current illness, exacerbation or injury. 10-Not Attempted due to Environmental Limitations-(lack of equipment, weather restraints, etc.). 88-Not Attempted due to Medical Conditions or Safety Concerns. Sit to Stand (QC): 6 Chair/Hwx-qu-Thxrm Xfer(QC): 6 Patient needs to use the restroom, he ambulates into the restroom on his own using a rolling walker, doesn't need assist assist while in there. Weight Bearing Full Weight Bearing Full Weight Bearing Gait Training Distance: 800' Walk 10 feet (QC): 6 Walk 50 ft with 2 Turns(QC): 6 Walk 150 ft (QC): 6 Gait Assistive Device: FWW slow but steady ambulation, improving endurance Treatments toileting, ambulation, transfers Assessment Current Status: Fair Progress progress to SPC PT Short Term Goals Short Term Goals Time Frame: Oct 24, 2021 Roll Left & Right: 6 Sit to lyin Lying to sitting on side of be: 6 Sit to stand: 4 (SBA) Chair/rfx-gh-aeepk transfer: 4 (SBA) Walk 10 feet: 4 (SBA) Walk 50 feet with two turns: 4 (SBA) Walk 150 feet: 4 (SBA) PT Labor Relations Analyst Goals Labor Relations Analyst Goals PT Labor Relations Analyst Goals Time Frame: Nov 07, 2021 Roll Left & Right (QC): 6 Sit to Lying (QC): 6 Lying-Sitting on Side/Bed(QC): 6 Sit to Stand (QC): 6 Chair/Soe-ae-Lwzxj Xfer(QC): 6 Toilet Transfer (QC): 6 Car Transfer (QC): 6 Does the Patient Walk: Yes Walk 10 feet (QC): 6 Walk 50ft with 2 Turns (QC): 6 Walk 150 ft (QC): 6 Walking 10ft on Uneven Surface: 6 1 Step (curb) (QC): 4 (SBA) 4 Steps (QC): 4 (SBA) 12 Steps (QC): 4 (SBA) Picking up an Object (QC): 6 Wheel 50 feet with 2 turns (QC: 9 Wheel 150 feet: 9 PT Plan Problem List Problem List: Activity Tolerance, Functional Strength, Safety, Balance, Gait, Transfer, ROM Treatment/Plan Treatment Plan: Continue Plan of Care Treatment Plan: Bed Mobility, Education, Functional Activity Jorge, Functional Strength, Group Therapy, Gait, Safety, Therapeutic Exercise, Transfers Treatment Duration: Nov 07, 2021 Frequency: At least 5 of 7 days/Wk (IRF) Estimated Hrs Per Day: 1.5 hours per day Patient and/or Family Agrees t: Yes Safety Risks/Education Patient Education: Gait Training, Transfer Techniques, Correct Positioning, Safety Issues Teaching Recipient: Patient Teaching Methods: Demonstration, Discussion Response to Teaching: Reinforcement Needed Time/GCodes Time In: 1130 Time Out: 1200 Total Billed Treatment Time: 30 Total Billed Treatment 1 visit FA 30' SPENCER PÉREZ PT Oct 22, 2021 11:52
[2021-10-22 17:34] VITALS: BP 115/68
[2021-10-22 19:59] VITALS: BP 112/69
[2021-10-23] MEDS: inSUlin ASPART (NovoLOG) 1 UNIT/0.01 ML (CHARGE PER UNIT) SC SCH ×5 (05:46→20:47)
--- NOTE | 2021-10-23 05:53 | PM&R Progress Note ---
Subjective HPI/CC On Admission Date Seen by Provider: Oct 23, 2021 Time Seen by Provider: 12:30 Subjective/Events-last exam 10/23/2021: Patient doing well Headache is managed well No concerns at this point CT scan of the brain is scheduled for 10/25/2021 No bowel movement for several days so ordered more laxatives 10/22/2021: Pt is doing really well Working with therapy No falls 10/21/2021: Late entry inadvertently missed note Headache remains No issues otherwise Ambulating well 10/20/2021: Doing well Family visiting No pain except for headache Ambulating around pretty well 10/19/2021: Pt is doing really well Hemorrhoid pain but declines cream and suppository Blood sugar 140 to 207 will monitor trend Large BM yesterday after no BM x 2 weeks 10/18/2021: Doing well Sleeping well TORREZ improved with pain meds No falls Working with therapy Review of Systems General: Fatigue, Malaise Objective Exam Vital Signs Vital Signs Date Time Temp Pulse Resp B/P (MAP) Pulse Ox O2 Delivery O2 Flow Rate FiO2 10/23/21 20:24 Room Air 10/23/21 19:15 36.8 85 20 104/73 (83) 97 Capillary Refill : General Appearance: No Apparent Distress, WD/WN, Chronically ill HEENT: PERRL/EOMI, Normal ENT Inspection, Pharynx Normal Neck: Full Range of Motion, Normal Inspection, Non Tender, Supple, Carotid Bruit Respiratory: Chest Non Tender, Lungs Clear, Normal Breath Sounds, No Accessory Muscle Use, No Respiratory Distress Cardiovascular: Regular Rate, Rhythm, No Edema, No Gallop, No JVD, No Murmur, Normal Peripheral Pulses Gastrointestinal: Normal Bowel Sounds, No Organomegaly, No Pulsatile Mass, Non Tender, Soft Back: Normal Inspection, No CVA Tenderness, No Vertebral Tenderness Extremity: Normal Capillary Refill, Normal Inspection, Normal Range of Motion, Non Tender, No Calf Tenderness, No Pedal Edema Neurologic/Psychiatric: Alert, Oriented x3, Normal Mood/Affect, graining operator II-XII Norm as Tested, Abnormal Gait, Depressed Affect, Motor Weakness Skin: Normal Color, Warm/Dry, Other (incisions of scalp healing well) Lymphatic: No Adenopathy Results/Procedures Lab Patient resulted labs reviewed. FIM Transfers Therapy Code Descriptions/Definitions Functional [place] Measure: 0=Not Assessed/NA 4=Minimal Assistance 1=Total Assistance 5=Supervision or Setup 2=Maximal Assistance 6=Modified [place] 3=Moderate Assistance 7=Complete IndependenceSCALE: Activities may be completed with or without assistive devices. 0-Gzbashsafe-hsmvecj completes the activity by him/herself with no assistance from a helper. 5-Set-up or Clean-up Assistance-helper sets up or cleans up; patient completes activity. [place] assists only prior to or following the activity. 4-Supervision or Touching Assistance-helper provides verbal cues and/or touching/steadying and/or contact guard assistance as patient completes activity. Assistance may be provided throughout the activity or intermittently. 3-Partial/Moderate Assistance-helper does LESS THAN HALF the effort. [place] lifts, holds or supports trunk or limbs, but provides less than half the effort. 2-Substantial/Maximal Assistance-helper does MORE THAN HALF the effort. [place] lifts or holds trunk or limbs and provides more than half the effort. 6-Xgewnjlon-fxkxhy does ALL the effort. Patient does none of the effort to complete the activity. Or, the assistance of 2 or more helpers is required for the patient to complete the activity. If activity was not attempted, code reason: 7-Patient Refused. 9-Not Applicable-not attempted and the patient did not perform the activity before the current illness, exacerbation or injury. 10-Not Attempted due to Environmental Limitations-(lack of equipment, weather restraints, etc.). 88-Not Attempted due to Medical Conditions or Safety Concerns. Roll Left to Right (QC): 6 Sit to Lying (QC): 6 Sit to Stand (QC): 6 Chair/Ked-mh-Hlfnw Xfer(QC): 6 Car Transfer (QC): 4 (CGA) Gait Training Does the Patient Walk?: Yes Distance: 800' Walk 10 feet (QC): 6 Walk 50 ft with 2 Turns(QC): 6 Walk 150 ft (QC): 6 Walking 10ft/uneven surface-QC: 4 (CGA) Gait Persons Needed: 1 Gait Assistive Device: FWW Wheelchair Training Does the Pt Use a Wheelchair?: Yes Wheel 50 ft with 2 turns (QC): 9 Wheel 150 ft (QC): 6 Type of Wheelchair: Manual Stair Training #of Steps: 4 1 Step (curb) (QC): 4 (CGA) 4 Steps (QC): 4 (CGA) 12 Steps (QC): 88 Balance Picking up an Object (QC): 4 (CGA using insulation blower) ADL-Treatment Eating (QC): 6 Oral Hygiene (QC): 6 Shower/Bathe Self (QC): 5 Upper Body Dressing (QC): 6 Lower Body Dressing (QC): 5 On/Off Footwear (QC): 5 (set up for Gera hose only, indep with socks/shoes) Toileting Hygiene (QC): 6 Toilet Transfer (QC): 6 Assessment/Plan Assessment and Plan Assess & Plan/Chief Complaint Assessment: s/p bilateral hematoma s/p elijah holes by Dr Shirlene BUTLER Previous OAC HTN DM Hemorrhoids Post op constipation severe now resolved Chronic headache Plan: Hold OAC Pain control Monitor closely 10/18/2021: Pain control Aggressive therapy 10/19/2021: Hemorrhoid cream Monitor pain 10/20/2021: Supportive care Monitor closely 10/21/2021: TORREZ management 10/22/2021: TORREZ management PT OT 10/23/2021: Supportive care Bowel regimen (1) Subdural hematoma SRINIVAS RIVERA DO Oct 23, 2021 05:53
[2021-10-23] MEDS: MULTIVIT W/MINERALS TAB (THERAGRAN M) PO SCH (06:49)
[2021-10-23 07:42] VITALS: BP 115/69
--- NOTE | 2021-10-23 08:55 | Occupational Ther Daily Note ---
OT Current Status-Daily Note Subjective Pt reports head pain as 5/10. Per patient, pain meds given prior to OT arrival Appearance Pt returned to sitting in recliner, all needs within reach. Mental Status/Objective Patient Orientation: Person, Place, Situation ADL-Treatment Therapy Code Descriptions/Definitions Functional [place] Measure: 0=Not Assessed/NA 4=Minimal Assistance 1=Total Assistance 5=Supervision or Setup 2=Maximal Assistance 6=Modified [place] 3=Moderate Assistance 7=Complete IndependenceSCALE: Activities may be completed with or without assistive devices. 1-Xyskrppvzf-kbtydqs completes the activity by him/herself with no assistance from a helper. 5-Set-up or Clean-up Assistance-helper sets up or cleans up; patient completes activity. [place] assists only prior to or following the activity. 4-Supervision or Touching Assistance-helper provides verbal cues and/or touching/steadying and/or contact guard assistance as patient completes activity. Assistance may be provided throughout the activity or intermittently. 3-Partial/Moderate Assistance-helper does LESS THAN HALF the effort. [place] lifts, holds or supports trunk or limbs, but provides less than half the effort. 2-Substantial/Maximal Assistance-helper does MORE THAN HALF the effort. [place] lifts or holds trunk or limbs and provides more than half the effort. 3-Ymnzububd-dimmvf does ALL the effort. Patient does none of the effort to complete the activity. Or, the assistance of 2 or more helpers is required for the patient to complete the activity. If activity was not attempted, code reason: 7-Patient Refused. 9-Not Applicable-not attempted and the patient did not perform the activity before the current illness, exacerbation or injury. 10-Not Attempted due to Environmental Limitations-(lack of equipment, weather restraints, etc.). 88-Not Attempted due to Medical Conditions or Safety Concerns. Eating (QC): 6 Oral Hygiene (QC): 6 On/Off Footwear: 6 Toileting Hygiene (QC): 6 Toilet Transfer (QC): 6 Pt declines bathing/changing clothes today due to not having any clean clothes available at this time. He reports his will be bringing in new clothes later today. Pt has showed in past sessions that he does not require any physical assistance with dressing tasks. Grooming tasks performed standing at sink, no safety concerns observed. Other Treatment Pt independently ambulated around unit, >300 feet x2 with use of walker. OT discussed with PT about trialing cane. While in gym, pt participated in several therapeutic activities with focus on improving standing tolerance, balance (with zero UE support), UE/hand strengthening, and memory. 2# wrist weights added to BUE's for added strengthening component. Pt completed mod complexity PVC pipe design. Template placed ~15 feet away from building station with effort to increase memory strategies. Pt able to recall 2-4 pieces at a time before needing to return to template. 4-5 mistakes made, however pt able to identify and fix mistakes without cues. Pt also stood to complete nuts/bolts board, wrist weights still donned. Mild c/o fatigue at end of activities, needing a sitting rest break to recover. Pt participated in UE exercises with 4# dowel mukesh. Goal to improve endurance and strength needed for functional activities. All movements performed through full range. Tolerates well with short rest breaks. 1x10 all planes. Education OT Patient Education: Correct positioning, Energy conservation, Exercise program, Progress toward Goal/Update tx plan, Purpose of tx/functional activities, Safety issues Teaching Recipient: Patient Teaching Methods: Demonstration, Discussion Response to Teaching: Verbalize Understanding, Return Demonstration OT Short Term Goals Short Term Goals Time Frame: Oct 24, 2021 Eatin Oral hygiene: 6 Toileting hygiene: 6 Shower/bathe self: 4 Upper body dressin Lower body dressin Putting on/taking off footwear: 6 OT Custodial Goals Custodial Goals Time Frame: Oct 30, 2021 Eating (QC): 6 Oral Hygiene (QC): 6 Toileting Hygiene (QC): 6 Shower/Bathe Self (QC): 5 Upper Body Dressing (QC): 6 Lower Body Dressing (QC): 6 On/Off Footwear (QC): 6 1=Demonstrate adherence to instructed precautions during ADL tasks. 2=Patient will verbalize/demonstrate understanding of assistive devices/modifications for ADL. 3=Patient will improve strength/tolerance for activity to enable patient to perform ADL's. OT Education/Plan Problem List/Assessment Assessment: Decreased Activ Tolerance, Impaired I ADL's Discharge Recommendations Plan/Recommendations: Continue POC Treatment Plan/Plan of Care Treatment,Training & Education: Yes Patient would benefit from OT for education, treatment and training to promote independence in ADL's, mobility, safety and/or upper extremity function for ADL's. Plan of Care: ADL Retraining, Cognitive Retraining, Concurrent Therapy, Functional Mobility, Group Exercise/Act as Ind, UE Funct Exercise/Act Treatment Duration: Oct 30, 2021 Frequency: At least 5 of 7 days/Wk (IRF) Estimated Hrs Per Day: 1.5 hours per day (75-90 min/day ) Agreement: Yes Rehab Potential: Good Time/GCodes Start Time: 07:25 Stop Time: 08:55 Total Time Billed (hr/min): 90 Billed Treatment Time 1 visit ADL x2 (25 min) FA x2 (35 min) EX x2 (30 min) Almaz Shultz OT Oct 23, 2021 08:55
[2021-10-23] MEDS: polyethylene glycoL POWDER 17 GM (MIRALAX) PACK PO SCH ×2 (09:00→19:39)
[2021-10-23] MEDS: DOCUSATE SODIUM 100 MG (COLACE) CAP PO SCH ×2 (09:47→20:21)
[2021-10-23] MEDS: TAMSULOSIN 0.4 MG (FLOMAX) CAP PO SCH (09:47)
[2021-10-23] MEDS: lisINopril 20 MG (PRINIVIL) TABLET PO SCH (09:48)
[2021-10-23] MEDS: EMPAGLIFLOZIN 10 MG TABLET (JARDIANCE) PO SCH (09:48)
[2021-10-23] MEDS: SENNA W/DOCUSATE (SENOKOT S) TABLET PO SCH ×2 (09:48→20:21)
[2021-10-23] MEDS: metFORMIN 500 MG (GLUCOPHAGE) TAB PO SCH ×2 (09:48→18:20)
[2021-10-23] MEDS: ACETAMINOPHEN 325 MG TABLET PO PRN (09:49)
--- NOTE | 2021-10-23 09:52 | Physical Therapy Daily Note ---
PT Daily Note-Current Subjective Patient in restroom pre tx, agrees to PT when done, has 6/10 headache. Appearance Patient in recliner post tx with nurse call, phone, tray, all needs met. Mental Status Patient Orientation: Person, Place, Situation Transfers SCALE: Activities may be completed with or without assistive devices. 7-Dgehsliljq-ihzakck completes the activity by him/herself with no assistance from a helper. 5-Set-up or Clean-up Assistance-helper sets up or cleans up; patient completes activity. [place] assists only prior to or following the activity. 4-Supervision or Touching Assistance-helper provides verbal cues and/or t ouching/steadying and/or contact guard assistance as patient completes activity. Assistance may be provided throughout the activity or intermittently. 3-Partial/Moderate Assistance-helper does LESS THAN HALF the effort. [place] lifts, holds or supports trunk or limbs, but provides less than half the effort. 2-Substantial/Maximal Assistance-helper does MORE THAN HALF the effort. [place] lifts or holds trunk or limbs and provides more than half the effort. 2-Poechlstt-iuhhya does ALL the effort. Patient does none of the effort to complete the activity. Or, the assistance of 2 or more helpers is required for the patient to complete the activity. If activity was not attempted, code reason: 7-Patient Refused. 9-Not Applicable-not attempted and the patient did not perform the activity before the current illness, exacerbation or injury. 10-Not Attempted due to Environmental Limitations-(lack of equipment, weather restraints, etc.). 88-Not Attempted due to Medical Conditions or Safety Concerns. Sit to Stand (QC): 6 Chair/Bmg-vs-Zcpgl Xfer(QC): 6 Toilet Transfer (QC): 6 Weight Bearing Full Weight Bearing Full Weight Bearing Gait Training Distance: 800'x2, 300' Walk 10 feet (QC): 6 Walk 50 ft with 2 Turns(QC): 6 Walk 150 ft (QC): 6 Walking 10ft/uneven surface-QC: 6 Gait Assistive Device: FWW ambulated outside over sidewalks and ramps, patient also ambulated 300' with a SPC with SBA (slightly unsteady) Stair Training Stair Training: Handrails/: 2 handrails #of Steps: 12 1 Step (curb) (QC): 4 4 Steps (QC): 4 12 Steps (QC): 4 Stairs: Pattern: Reciprocal SBA Exercises NuStep Minutes: 15 NuStep Workload: 5 Treatments transfers, ambulation, functional strengthening, stair training Assessment Current Status: Fair Progress improving general mobility, independent with ambulating using a walker but not with a SPC yet PT Short Term Goals Short Term Goals Time Frame: Oct 24, 2021 Roll Left & Right: 6 Sit to lyin Lying to sitting on side of be: 6 Sit to stand: 4 (SBA) Chair/vtl-ct-rtdin transfer: 4 (SBA) Walk 10 feet: 4 (SBA) Walk 50 feet with two turns: 4 (SBA) Walk 150 feet: 4 (SBA) PT Mcc Goals First Grade Teacher Goals PT Mcc Goals Time Frame: Nov 07, 2021 Roll Left & Right (QC): 6 Sit to Lying (QC): 6 Lying-Sitting on Side/Bed(QC): 6 Sit to Stand (QC): 6 Chair/Ndl-aq-Uhmee Xfer(QC): 6 Toilet Transfer (QC): 6 Car Transfer (QC): 6 Does the Patient Walk: Yes Walk 10 feet (QC): 6 Walk 50ft with 2 Turns (QC): 6 Walk 150 ft (QC): 6 Walking 10ft on Uneven Surface: 6 1 Step (curb) (QC): 4 (SBA) 4 Steps (QC): 4 (SBA) 12 Steps (QC): 4 (SBA) Picking up an Object (QC): 6 Wheel 50 feet with 2 turns (QC: 9 Wheel 150 feet: 9 PT Plan Problem List Problem List: Activity Tolerance, Functional Strength, Safety, Balance, Gait, Transfer, ROM Treatment/Plan Treatment Plan: Continue Plan of Care Treatment Plan: Bed Mobility, Education, Functional Activity Jorge, Functional Strength, Group Therapy, Gait, Safety, Therapeutic Exercise, Transfers Treatment Duration: Nov 07, 2021 Frequency: At least 5 of 7 days/Wk (IRF) Estimated Hrs Per Day: 1.5 hours per day Patient and/or Family Agrees t: Yes Safety Risks/Education Patient Education: Gait Training, Transfer Techniques, Steps, Correct Positioning, Safety Issues Teaching Recipient: Patient Teaching Methods: Demonstration, Discussion Response to Teaching: Reinforcement Needed Time/GCodes Time In: 0900 Time Out: 1000 Total Billed Treatment Time: 60 Total Billed Treatment 1 visit EX 15' FA 45' SPENCER PÉREZ PT Oct 23, 2021 09:52
[2021-10-23] MEDS: HYDROCORTISONE 2.5% CREAM (ANUSOL-HC) 30 GM TOP SCH ×2 (12:00→20:15)
--- NOTE | 2021-10-23 13:32 | Physical Therapy Daily Note ---
PT Daily Note-Current Subjective Patient sitting in chair upon PT arrival, in the room, both agreeable to treatment. Mental Status Patient Orientation: Person, Place, Time, Situation Transfers SCALE: Activities may be completed with or without assistive devices. 6-Rgndvcwxkv-ijjnhbo completes the activity by him/herself with no assistance from a helper. 5-Set-up or Clean-up Assistance-helper sets up or cleans up; patient completes activity. [place] assists only prior to or following the activity. 4-Supervision or Touching Assistance-helper provides verbal cues and/or touching/steadying and/or contact guard assistance as patient completes activity. Assistance may be provided throughout the activity or intermittently. 3-Partial/Moderate Assistance-helper does LESS THAN HALF the effort. [place] lifts, holds or supports trunk or limbs, but provides less than half the effort. 2-Substantial/Maximal Assistance-helper does MORE THAN HALF the effort. [place] lifts or holds trunk or limbs and provides more than half the effort. 2-Piwrhgiyx-vxyiiv does ALL the effort. Patient does none of the effort to complete the activity. Or, the assistance of 2 or more helpers is required for the patient to complete the activity. If activity was not attempted, code reason: 7-Patient Refused. 9-Not Applicable-not attempted and the patient did not perform the activity before the current illness, exacerbation or injury. 10-Not Attempted due to Environmental Limitations-(lack of equipment, weather restraints, etc.). 88-Not Attempted due to Medical Conditions or Safety Concerns. Sit to Stand (QC): 6 Chair/Ump-of-Krpoo Xfer(QC): 6 Toilet Transfer (QC): 5 Weight Bearing Full Weight Bearing Full Weight Bearing Gait Training Does the Patient Walk?: Yes Distance: 1000+ Walk 10 feet (QC): 6 Walk 50 ft with 2 Turns(QC): 6 Walk 150 ft (QC): 4 Walking 10ft/uneven surface-QC: 4 Stair Training Stair Training: Handrails/: uses cane #of Steps: 3 1 Step (curb) (QC): 4 Stairs: Pattern: Reciprocal Assessment Current Status: Excellent Progress Patient tolerated treatment well. He ambulates over 1000 feet around the hospital grounds with cane in alternating hands, with SBA/I. Patient ambulates over various surfaces including steps, grass, rocks, up and down inclines. Patient demonstrates good overall balance with no lloyd loss of balance. Patient in chair post treatment with all needs met, nursing notified, call light in hand. PT Short Term Goals Short Term Goals Time Frame: Oct 24, 2021 Roll Left & Right: 6 Sit to lyin Lying to sitting on side of be: 6 Sit to stand: 4 (SBA) Chair/ler-cg-gxqzm transfer: 4 (SBA) Walk 10 feet: 4 (SBA) Walk 50 feet with two turns: 4 (SBA) Walk 150 feet: 4 (SBA) PT Logistics Planner Goals [facility] Goals PT [facility] Goals Time Frame: Nov 07, 2021 Roll Left & Right (QC): 6 Sit to Lying (QC): 6 Lying-Sitting on Side/Bed(QC): 6 Sit to Stand (QC): 6 Chair/Duj-on-Cwniz Xfer(QC): 6 Toilet Transfer (QC): 6 Car Transfer (QC): 6 Does the Patient Walk: Yes Walk 10 feet (QC): 6 Walk 50ft with 2 Turns (QC): 6 Walk 150 ft (QC): 6 Walking 10ft on Uneven Surface: 6 1 Step (curb) (QC): 4 (SBA) 4 Steps (QC): 4 (SBA) 12 Steps (QC): 4 (SBA) Picking up an Object (QC): 6 Wheel 50 feet with 2 turns (QC: 9 Wheel 150 feet: 9 PT Plan Treatment/Plan Treatment Plan: Continue Plan of Care Treatment Plan: Bed Mobility, Education, Functional Activity Jorge, Functional Strength, Group Therapy, Gait, Safety, Therapeutic Exercise, Transfers Treatment Duration: Nov 07, 2021 Frequency: At least 5 of 7 days/Wk (IRF) Estimated Hrs Per Day: 1.5 hours per day Patient and/or Family Agrees t: Yes Safety Risks/Education Patient Education: Gait Training Teaching Recipient: Patient Teaching Methods: Demonstration, Discussion Response to Teaching: Verbalize Understanding, Return Demonstration Time/GCodes Time In: 1300 Time Out: 1330 Total Billed Treatment Time: 30 Total Billed Treatment Visit, gait (2) LENARD HYDE PT Oct 23, 2021 13:32
[2021-10-23] MEDS ORDERED: ASPI-1238 PO (16:09)
[2021-10-23] MEDS ORDERED: RIVA20TA PO (16:10)
[2021-10-23] MEDS: tadalafiL 5 MG TABLET (NON-FORMULARY) PO SCH (18:28)
[2021-10-23 19:15] VITALS: BP 104/73
[2021-10-24] MEDS: HYDROcodone/APAP 5 MG/325 MG (LORTAB) TAB PO PRN ×2 (01:39→22:13)
[2021-10-24] MEDS: MULTIVIT W/MINERALS TAB (THERAGRAN M) PO SCH (06:07)
--- NOTE | 2021-10-24 06:37 | PM&R Progress Note ---
Subjective HPI/CC On Admission Date Seen by Provider: Oct 24, 2021 Time Seen by Provider: 09:00 Subjective/Events-last exam 10/24/2021: Doing well No issues TORREZ is improved Pain meds taken and they are effective 10/23/2021: Patient doing well Headache is managed well No concerns at this point CT scan of the brain is scheduled for 10/25/2021 No bowel movement for several days so ordered more laxatives 10/22/2021: Pt is doing really well Working with therapy No falls 10/21/2021: Late entry inadvertently missed note Headache remains No issues otherwise Ambulating well 10/20/2021: Doing well Family visiting No pain except for headache Ambulating around pretty well 10/19/2021: Pt is doing really well Hemorrhoid pain but declines cream and suppository Blood sugar 140 to 207 will monitor trend Large BM yesterday after no BM x 2 weeks 10/18/2021: Doing well Sleeping well TORREZ improved with pain meds No falls Working with therapy Review of Systems General: Fatigue, Malaise Objective Exam Vital Signs Vital Signs Date Time Temp Pulse Resp B/P (MAP) Pulse Ox O2 Delivery O2 Flow Rate FiO2 10/24/21 09:00 Room Air 10/24/21 07:54 36.1 88 18 112/82 (92) 98 Capillary Refill : General Appearance: No Apparent Distress, WD/WN, Chronically ill HEENT: PERRL/EOMI, Normal ENT Inspection, Pharynx Normal Neck: Full Range of Motion, Normal Inspection, Non Tender, Supple, Carotid Bruit Respiratory: Chest Non Tender, Lungs Clear, Normal Breath Sounds, No Accessory Muscle Use, No Respiratory Distress Cardiovascular: Regular Rate, Rhythm, No Edema, No Gallop, No JVD, No Murmur, Normal Peripheral Pulses Gastrointestinal: Normal Bowel Sounds, No Organomegaly, No Pulsatile Mass, Non Tender, Soft Back: Normal Inspection, No CVA Tenderness, No Vertebral Tenderness Extremity: Normal Capillary Refill, Normal Inspection, Normal Range of Motion, Non Tender, No Calf Tenderness, No Pedal Edema Neurologic/Psychiatric: Alert, Oriented x3, Normal Mood/Affect, digital marketing intern II-XII Norm as Tested, Abnormal Gait, Depressed Affect, Motor Weakness Skin: Normal Color, Warm/Dry, Other (incisions of scalp healing well) Lymphatic: No Adenopathy Results/Procedures Lab Patient resulted labs reviewed. FIM Transfers Therapy Code Descriptions/Definitions Functional [place] Measure: 0=Not Assessed/NA 4=Minimal Assistance 1=Total Assistance 5=Supervision or Setup 2=Maximal Assistance 6=Modified [place] 3=Moderate Assistance 7=Complete IndependenceSCALE: Activities may be completed with or without assistive devices. 8-Qgdxsilyxx-xzchlom completes the activity by him/herself with no assistance from a helper. 5-Set-up or Clean-up Assistance-helper sets up or cleans up; patient completes activity. [place] assists only prior to or following the activity. 4-Supervision or Touching Assistance-helper provides verbal cues and/or touching/steadying and/or contact guard assistance as patient completes activity. Assistance may be provided throughout the activity or intermittently. 3-Partial/Moderate Assistance-helper does LESS THAN HALF the effort. [place] lifts, holds or supports trunk or limbs, but provides less than half the effort. 2-Substantial/Maximal Assistance-helper does MORE THAN HALF the effort. [place] lifts or holds trunk or limbs and provides more than half the effort. 0-Hbybkdyht-mezkse does ALL the effort. Patient does none of the effort to complete the activity. Or, the assistance of 2 or more helpers is required for the patient to complete the activity. If activity was not attempted, code reason: 7-Patient Refused. 9-Not Applicable-not attempted and the patient did not perform the activity before the current illness, exacerbation or injury. 10-Not Attempted due to Environmental Limitations-(lack of equipment, weather restraints, etc.). 88-Not Attempted due to Medical Conditions or Safety Concerns. Roll Left to Right (QC): 6 Sit to Lying (QC): 6 Sit to Stand (QC): 6 Chair/Ulw-ce-Aimrv Xfer(QC): 6 Car Transfer (QC): 4 (CGA) Gait Training Does the Patient Walk?: Yes Distance: 1000+ Walk 10 feet (QC): 6 Walk 50 ft with 2 Turns(QC): 6 Walk 150 ft (QC): 4 Walking 10ft/uneven surface-QC: 4 Gait Persons Needed: 1 Gait Assistive Device: FWW Wheelchair Training Does the Pt Use a Wheelchair?: No Wheel 50 ft with 2 turns (QC): 9 Wheel 150 ft (QC): 6 Type of Wheelchair: N/A Stair Training Stair Training: Handrails/: uses cane #of Steps: 3 1 Step (curb) (QC): 4 4 Steps (QC): 4 12 Steps (QC): 4 Stairs: Pattern: Reciprocal Balance Picking up an Object (QC): 4 (CGA using wastewater design engineer) ADL-Treatment Eating (QC): 6 Oral Hygiene (QC): 6 Shower/Bathe Self (QC): 5 Upper Body Dressing (QC): 6 Lower Body Dressing (QC): 5 On/Off Footwear (QC): 6 Toileting Hygiene (QC): 6 Toilet Transfer (QC): 6 Assessment/Plan Assessment and Plan Assess & Plan/Chief Complaint Assessment: s/p bilateral hematoma s/p elijah holes by Dr Garber AF Previous OAC HTN DM Hemorrhoids Post op constipation severe now resolved Chronic headache Plan: Hold OAC Pain control Monitor closely 10/18/2021: Pain control Aggressive therapy 10/19/2021: Hemorrhoid cream Monitor pain 10/20/2021: Supportive care Monitor closely 10/21/2021: TORREZ management 10/22/2021: TORREZ management PT OT 10/23/2021: Supportive care Bowel regimen 10/24/2021: Supportive care (1) Subdural hematoma SRINIVAS RIVERA DO Oct 24, 2021 06:37
[2021-10-24 07:54] VITALS: BP 112/82
--- NOTE | 2021-10-24 09:00 | Physical Therapy Daily Note ---
PT Daily Note-Current Subjective Pt in recliner upon arrival and agrees to PT. Pain Numeric Pain Scale: 4 Location Body Site: Head Pain Description: Ache Mental Status Patient Orientation: Person, Place, Time, Situation Transfers SCALE: Activities may be completed with or without assistive devices. 9-Dqwveibomh-akjmtif completes the activity by him/herself with no assistance from a helper. 5-Set-up or Clean-up Assistance-helper sets up or cleans up; patient completes activity. [place] assists only prior to or following the activity. 4-Supervision or Touching Assistance-helper provides verbal cues and/or touching/steadying and/or contact guard assistance as patient completes activity. Assistance may be provided throughout the activity or intermittently. 3-Partial/Moderate Assistance-helper does LESS THAN HALF the effort. [place] lifts, holds or supports trunk or limbs, but provides less than half the effort. 2-Substantial/Maximal Assistance-helper does MORE THAN HALF the effort. [place] lifts or holds trunk or limbs and provides more than half the effort. 0-Nquvafyvt-dxibtu does ALL the effort. Patient does none of the effort to complete the activity. Or, the assistance of 2 or more helpers is required for the patient to complete the activity. If activity was not attempted, code reason: 7-Patient Refused. 9-Not Applicable-not attempted and the patient did not perform the activity before the current illness, exacerbation or injury. 10-Not Attempted due to Environmental Limitations-(lack of equipment, weather restraints, etc.). 88-Not Attempted due to Medical Conditions or Safety Concerns. Lying to Sitting/Side of Bed(Q: 6 Sit to Stand (QC): 6 Chair/Ktf-kh-Dhxzb Xfer(QC): 6 Car Transfer (QC): 6 Weight Bearing Full Weight Bearing Full Weight Bearing Gait Training Distance: 150' 850' 250' Walk 10 feet (QC): 6 Walk 50 ft with 2 Turns(QC): 6 Walk 150 ft (QC): 6 Walking 10ft/uneven surface-QC: 6 Gait Persons Needed: 1 Gait Assistive Device: Cane Single Point Stair Training Stair Training: Handrails/: 1 handrail #of Steps: 4 1 Step (curb) (QC): 5 4 Steps (QC): 5 12 Steps (QC): 5 Stairs: Pattern: Step to Exercises NuStep Minutes: 20 NuStep Workload: 6 Treatments Amb to therapy gym and performed car transfer, and then performs other QCs then TFs to nustep and then amb 850' downstairs pt then amb around IRF then amb back to room and Pt in recliner as PT departs all needs met and call light nearby. Assessment Current Status: Good Progress Pt able to perform all QCs w/ little to no issues. Pt fatigued following long bouts of amb. PT Short Term Goals Short Term Goals Time Frame: Oct 24, 2021 Roll Left & Right: 6 Sit to lyin Lying to sitting on side of be: 6 Sit to stand: 4 (SBA) Chair/npa-jg-joofu transfer: 4 (SBA) Walk 10 feet: 4 (SBA) Walk 50 feet with two turns: 4 (SBA) Walk 150 feet: 4 (SBA) PT Detention Goals Tension Machine Operator Goals PT Tension Machine Operator Goals Time Frame: Nov 07, 2021 Roll Left & Right (QC): 6 Sit to Lying (QC): 6 Lying-Sitting on Side/Bed(QC): 6 Sit to Stand (QC): 6 Chair/Jik-is-Sfrer Xfer(QC): 6 Toilet Transfer (QC): 6 Car Transfer (QC): 6 Does the Patient Walk: Yes Walk 10 feet (QC): 6 Walk 50ft with 2 Turns (QC): 6 Walk 150 ft (QC): 6 Walking 10ft on Uneven Surface: 6 1 Step (curb) (QC): 4 (SBA) 4 Steps (QC): 4 (SBA) 12 Steps (QC): 4 (SBA) Picking up an Object (QC): 6 Wheel 50 feet with 2 turns (QC: 9 Wheel 150 feet: 9 PT Plan Problem List Problem List: Activity Tolerance Treatment/Plan Treatment Plan: Continue Plan of Care Treatment Plan: Bed Mobility, Education, Functional Activity Jorge, Functional Strength, Group Therapy, Gait, Safety, Therapeutic Exercise, Transfers Treatment Duration: Nov 07, 2021 Frequency: At least 5 of 7 days/Wk (IRF) Estimated Hrs Per Day: 1.5 hours per day Patient and/or Family Agrees t: Yes Safety Risks/Education Patient Education: Correct Positioning Teaching Recipient: Patient Teaching Methods: Discussion Response to Teaching: Return Demonstration Time/GCodes Time In: 0800 Time Out: 0900 Total Billed Treatment Time: 60 Total Billed Treatment 1, FA (15min), EX (45 min) MAITE ALARCON HUMANITIES PROFESSOR Oct 24, 2021 09:00
[2021-10-24] MEDS: metFORMIN 500 MG (GLUCOPHAGE) TAB PO SCH ×2 (09:25→18:00)
[2021-10-24] MEDS: DOCUSATE SODIUM 100 MG (COLACE) CAP PO SCH ×2 (09:25→20:55)
[2021-10-24] MEDS: TAMSULOSIN 0.4 MG (FLOMAX) CAP PO SCH (09:25)
[2021-10-24] MEDS: EMPAGLIFLOZIN 10 MG TABLET (JARDIANCE) PO SCH (09:26)
[2021-10-24] MEDS: SENNA W/DOCUSATE (SENOKOT S) TABLET PO SCH ×2 (09:26→20:54)
[2021-10-24] MEDS: lisINopril 20 MG (PRINIVIL) TABLET PO SCH (09:26)
[2021-10-24] MEDS: HYDROCORTISONE 2.5% CREAM (ANUSOL-HC) 30 GM TOP SCH ×2 (09:27→20:55)
[2021-10-24] MEDS: polyethylene glycoL POWDER 17 GM (MIRALAX) PACK PO SCH ×2 (09:27→20:55)
--- NOTE | 2021-10-24 10:26 | Occupational Ther Daily Note ---
OT Current Status-Daily Note Subjective Pt reports he continues to have a headache, rates pain as 5/10. Appearance Pt left sitting in recliner,all needs within reach at therapy departure. Mental Status/Objective Patient Orientation: Person, Place, Situation ADL-Treatment Therapy Code Descriptions/Definitions Functional [place] Measure: 0=Not Assessed/NA 4=Minimal Assistance 1=Total Assistance 5=Supervision or Setup 2=Maximal Assistance 6=Modified [place] 3=Moderate Assistance 7=Complete IndependenceSCALE: Activities may be completed with or without assistive devices. 6-Hvuqcqmgjt-skcwets completes the activity by him/herself with no assistance from a helper. 5-Set-up or Clean-up Assistance-helper sets up or cleans up; patient completes activity. [place] assists only prior to or following the activity. 4-Supervision or Touching Assistance-helper provides verbal cues and/or touching/steadying and/or contact guard assistance as patient completes activity. Assistance may be provided throughout the activity or intermittently. 3-Partial/Moderate Assistance-helper does LESS THAN HALF the effort. [place] lifts, holds or supports trunk or limbs, but provides less than half the effort. 2-Substantial/Maximal Assistance-helper does MORE THAN HALF the effort. [place] lifts or holds trunk or limbs and provides more than half the effort. 5-Qyfbjzork-ghejdu does ALL the effort. Patient does none of the effort to complete the activity. Or, the assistance of 2 or more helpers is required for the patient to complete the activity. If activity was not attempted, code reason: 7-Patient Refused. 9-Not Applicable-not attempted and the patient did not perform the activity before the current illness, exacerbation or injury. 10-Not Attempted due to Environmental Limitations-(lack of equipment, weather restraints, etc.). 88-Not Attempted due to Medical Conditions or Safety Concerns. Eating (QC): 6 Oral Hygiene (QC): 6 Shower/Bathe Self (QC): 6 Upper Body Dressing (QC): 6 Lower Body Dressing (QC): 6 On/Off Footwear: 5 (set up for rafael hose only, indep socks/shoes) Toileting Hygiene (QC): 6 Toilet Transfer (QC): 6 Pt retrieved clothing, set up shower, and completed bathing and dressing tasks independently. No safety concerns observed. Set up for rafael hose only. Appears to tolerate well. Other Treatment Pt independently ambulated >600 feet with cane. Short sitting rest break needed following distance. While seated, pt completed HEP program with green theraband. Reps increased to 12. 2 verbal cues for improved technique. Tolerates well. 1x12 all planes. Education OT Patient Education: Correct positioning, Energy conservation, Exercise program, Progress toward Goal/Update tx plan Teaching Recipient: Patient Teaching Methods: Discussion Response to Teaching: Verbalize Understanding, Return Demonstration OT Short Term Goals Short Term Goals Time Frame: Oct 24, 2021 Eatin Oral hygiene: 6 Toileting hygiene: 6 Shower/bathe self: 4 Upper body dressin Lower body dressin Putting on/taking off footwear: 6 OT 911 Operator Goals Assisted Goals Time Frame: Oct 30, 2021 Eating (QC): 6 (met) Oral Hygiene (QC): 6 (met) Toileting Hygiene (QC): 6 (met) Shower/Bathe Self (QC): 5 (met) Upper Body Dressing (QC): 6 (met) Lower Body Dressing (QC): 6 (met) On/Off Footwear (QC): 6 (met, set up for rafael hose only) 1=Demonstrate adherence to instructed precautions during ADL tasks. 2=Patient will verbalize/demonstrate understanding of assistive devices/modifications for ADL. 3=Patient will improve strength/tolerance for activity to enable patient to perform ADL's. OT Education/Plan Problem List/Assessment Assessment: Decreased Activ Tolerance, Decreased UE Strength, Impaired I ADL's Discharge Recommendations Plan/Recommendations: Continue POC Therapy Discharge Recommendati: Home & Family Treatment Plan/Plan of Care Treatment,Training & Education: Yes Patient would benefit from OT for education, treatment and training to promote independence in ADL's, mobility, safety and/or upper extremity function for ADL's. Plan of Care: ADL Retraining, Cognitive Retraining, Concurrent Therapy, Functional Mobility, Group Exercise/Act as Ind, UE Funct Exercise/Act Treatment Duration: Oct 30, 2021 Frequency: At least 5 of 7 days/Wk (IRF) Estimated Hrs Per Day: 1.5 hours per day (75-90 min/day ) Agreement: Yes Rehab Potential: Good Time/GCodes Start Time: 09:00 Stop Time: 10:30 Total Time Billed (hr/min): 90 Billed Treatment Time 1 visit ADL x3 (50 min) EX x2 (30 min) FA (10 min) Almaz Shultz OT Oct 24, 2021 10:25
[2021-10-24] MEDS: inSUlin ASPART (NovoLOG) 1 UNIT/0.01 ML (CHARGE PER UNIT) SC SCH ×3 (12:00→20:55)
--- NOTE | 2021-10-24 13:32 | Physical Therapy Daily Note ---
PT Daily Note-Current Subjective Pt in recliner upon arrival and agrees to PT. Reports his head is hurting some but does not rate. Mental Status Patient Orientation: Person, Place, Time, Situation Transfers SCALE: Activities may be completed with or without assistive devices. 7-Taefhmslrg-nolcdvq completes the activity by him/herself with no assistance from a helper. 5-Set-up or Clean-up Assistance-helper sets up or cleans up; patient completes activity. [place] assists only prior to or following the activity. 4-Supervision or Touching Assistance-helper provides verbal cues and/or touching/steadying and/or contact guard assistance as patient completes ac tivity. Assistance may be provided throughout the activity or intermittently. 3-Partial/Moderate Assistance-helper does LESS THAN HALF the effort. [place] lifts, holds or supports trunk or limbs, but provides less than half the effort. 2-Substantial/Maximal Assistance-helper does MORE THAN HALF the effort. [place] lifts or holds trunk or limbs and provides more than half the effort. 4-Fjozkqcax-xgrgts does ALL the effort. Patient does none of the effort to complete the activity. Or, the assistance of 2 or more helpers is required for the patient to complete the activity. If activity was not attempted, code reason: 7-Patient Refused. 9-Not Applicable-not attempted and the patient did not perform the activity before the current illness, exacerbation or injury. 10-Not Attempted due to Environmental Limitations-(lack of equipment, weather restraints, etc.). 88-Not Attempted due to Medical Conditions or Safety Concerns. Sit to Stand (QC): 6 Weight Bearing Full Weight Bearing Full Weight Bearing Gait Training Does the Patient Walk?: Yes Distance: 1000' x 2 250' x 1 Walk 10 feet (QC): 6 Walk 50 ft with 2 Turns(QC): 6 Walk 150 ft (QC): 6 Gait Persons Needed: 1 Gait Assistive Device: Cane Single Point Had pt perform some amb w/o SPC and able to complete w/ slow gait pattern. Balance Picking up an Object (QC): 6 Treatments Pt performs picking up an object in room and amb out into [place] and down stairs. Then amb on IRF and then ambs back to room. TFs back to recliner w/ all needs met and call light nearby. Assessment Current Status: Good Progress Pt fatigued towards end of amb as gait begins to slow. PT Short Term Goals Short Term Goals Time Frame: Oct 24, 2021 Roll Left & Right: 6 Sit to lyin Lying to sitting on side of be: 6 Sit to stand: 4 (SBA) Chair/qve-ok-gzinq transfer: 4 (SBA) Walk 10 feet: 4 (SBA) Walk 50 feet with two turns: 4 (SBA) Walk 150 feet: 4 (SBA) PT Dean Of Student Services Goals Dean Of Student Services Goals PT Dean Of Student Services Goals Time Frame: Nov 07, 2021 Roll Left & Right (QC): 6 Sit to Lying (QC): 6 Lying-Sitting on Side/Bed(QC): 6 Sit to Stand (QC): 6 Chair/Kop-yo-Lxvll Xfer(QC): 6 Toilet Transfer (QC): 6 Car Transfer (QC): 6 Does the Patient Walk: Yes Walk 10 feet (QC): 6 Walk 50ft with 2 Turns (QC): 6 Walk 150 ft (QC): 6 Walking 10ft on Uneven Surface: 6 1 Step (curb) (QC): 4 (SBA) 4 Steps (QC): 4 (SBA) 12 Steps (QC): 4 (SBA) Picking up an Object (QC): 6 Wheel 50 feet with 2 turns (QC: 9 Wheel 150 feet: 9 PT Plan Problem List Problem List: Activity Tolerance Treatment/Plan Treatment Plan: Continue Plan of Care Treatment Plan: Bed Mobility, Education, Functional Activity Jorge, Functional Strength, Group Therapy, Gait, Safety, Therapeutic Exercise, Transfers Treatment Duration: Nov 07, 2021 Frequency: At least 5 of 7 days/Wk (IRF) Estimated Hrs Per Day: 1.5 hours per day Patient and/or Family Agrees t: Yes Safety Risks/Education Patient Education: Correct Positioning Teaching Recipient: Patient Teaching Methods: Discussion Response to Teaching: Return Demonstration Time/GCodes Time In: 1300 Time Out: 1330 Total Billed Treatment Time: 30 Total Billed Treatment 1, GT x 2 MAITE ALARCON WHITE SUGAR SUPERVISOR Oct 24, 2021 13:32
[2021-10-24] MEDS: tadalafiL 5 MG TABLET (NON-FORMULARY) PO SCH (18:01)
[2021-10-24 20:00] VITALS: BP 110/80
[2021-10-25] MEDS ORDERED: LEVE500T6 PO (05:23)
[2021-10-25] MEDS ORDERED: ACHD5005 PO (05:23)
--- NOTE | 2021-10-25 05:24 | D/C HH Face to Face Order ---
D/C HH Face to Face Orders Reconcile Patient Problems Problems Reviewed?: Yes Instructions for Patient HH Patient Instructions/FollowUp: PCP 1 week Physician to follow Patient: Leticia Paz Diet for Home: ADA Diet Patient Problems: Subdural hematomas Patient Data-Allergies,Ht & Wt Patient Allergies: Coded Allergies: No Known Drug Allergies (Unverified , 02/21/20) Height (Feet): 5 Height (Inches): 11.00 Weight (Pounds): 194 Weight (Ounces): 0.0 Home Health Need/Face to Face Date of Face to Face: Oct 25, 2021 Clinical Findings: Generalized weakness and fatigue, Instability, Muscle weakness, Unsteady gait I have seen Pt qjfe-qq-yiid: Yes Discharged To: Home Diagnosis/Conditions: SDH Patient is Homebound due to: Simi fall risk due to instabilty, Muscle weakness Homebound Status Due to the above stated illness, injury or surgical procedure (medical condition or diagnosis) and associated clinical findings, the patient is homebound because of his/her inability to leave home except with aid of a supportive device and/or person AND leaving the home requires a considerable and taxing effort or is medically contraindicated. Pt req the following assistanc: Walker Home Health Nursing Orders Home Health Services Order: Nursing Services, Radiation Oncology Therapist-Evaluate & Treat, Physical Therapy-Evaluate & Treat Certify Stmt I certify that this patient is under my care and that I, a nurse practitioner or a physician; a music library assistant working with me, had a face to face encounter that -meets the physician face to face encounter requirements with this patient as dated. SRINIVAS RIVERA DO Oct 25, 2021 05:24
--- NOTE | 2021-10-25 05:25 | Discharge Summary ---
Diagnosis/Chief Complaint Date of Admission Oct 17, 2021 at 14:23 Date of Discharge Discharge Date: Oct 25, 2021 Discharge Diagnosis Assessment: s/p bilateral hematoma s/p elijah holes by Dr Shirlene BUTLER Previous OAC HTN DM Hemorrhoids Post op constipation severe now resolved Chronic headache Plan: Hold OAC Pain control Monitor closely 10/18/2021: Pain control Aggressive therapy 10/19/2021: Hemorrhoid cream Monitor pain 10/20/2021: Supportive care Monitor closely 10/21/2021: TORREZ management 10/22/2021: TORREZ management PT OT 10/23/2021: Supportive care Bowel regimen 10/24/2021: Supportive care (1) Subdural hematoma Discharge Summary Discharge Physical Examination Allergies: Coded Allergies: No Known Drug Allergies (Unverified , 02/21/20) Vitals & I&Os Vital Signs Date Time Temp Pulse Resp B/P (MAP) Pulse Ox O2 Delivery O2 Flow Rate FiO2 10/25/21 14:53 36.0 93 14 113/62 98 Room Air General Appearance: Alert, Oriented X3, Cooperative Respiratory: Clear to Auscultation Cardiovascular: Regular Rate Neuro: Normal Gait, Normal Speech, Strength at 5/5 X4 Ext Psych/Mental Status: Mental Status NL Hospital Course Was the Problem List Reviewed?: Yes Standard hospital course after he was admitted following a spontaneous bilateral subdural hematomas on oral anticoagulants. Elijah hole surgery required. Patient had an uneventful hospital course without evidence of any decompensation he was able to participate in all therapy in order to regain function for independent living. Labs (last 24 hrs) Laboratory Tests 10/17/21 15:35: Glucometer 161H 10/17/21 20:01: Glucometer 140H 10/18/21 06:14: Glucometer 169H 10/18/21 08:14: White Blood Count 9.7, Red Blood Count 4.54, Hemoglobin 13.5, Hematocrit 41, Mean Corpuscular Volume 89, Mean Corpuscular Hemoglobin 30, Mean Corpuscular Hemoglobin Concent 33, Red Cell Distribution Width 13.5, Platelet Count 239, Mean Platelet Volume 9.1, Immature Granulocyte % (Auto) 0, Neutrophils (%) (Auto) 80H, Lymphocytes (%) (Auto) 13, Monocytes (%) (Auto) 6, Eosinophils (%) (Auto) 1, Basophils (%) (Auto) 0, Neutrophils # (Auto) 7.7, Lymphocytes # (Auto) 1.2, Monocytes # (Auto) 0.6, Eosinophils # (Auto) 0.1, Basophils # (Auto) 0.0, Immature Granulocyte # (Auto) 0.0, Sodium Level 137, Potassium Level 4.3, Chloride Level 104, Carbon Dioxide Level 25, Anion Gap 8, Blood Urea Nitrogen 14, Creatinine 0.79, Estimat Glomerular Filtration Rate 96, BUN/Creatinine Ratio 18, Glucose Level 218H, Calcium Level 8.7, Corrected Calcium 8.9, Total Bilirubin 1.2H, Aspartate Amino Transf (AST/SGOT) 17, Alanine Aminotransferase (ALT/SGPT) 31, Alkaline Phosphatase 49, Total Protein 6.6, Albumin 3.7 10/18/21 10:58: Glucometer 136H 10/18/21 16:10: Glucometer 137H 10/18/21 20:15: Glucometer 140H 10/19/21 05:31: Glucometer 115H 10/19/21 10:30: Glucometer 129H 10/19/21 15:44: Glucometer 104 10/19/21 20:58: Glucometer 117H 10/20/21 06:34: Glucometer 128H 10/20/21 10:39: Glucometer 103 10/20/21 15:11: Glucometer 131H 10/20/21 20:19: Glucometer 122H 10/21/21 07:01: Glucometer 129H 10/21/21 11:45: Glucometer 100 10/21/21 15:27: Glucometer 137H 10/21/21 20:22: Glucometer 120H 10/22/21 05:45: White Blood Count 7.3, Red Blood Count 5.02, Hemoglobin 14.7, Hematocrit 45, Mean Corpuscular Volume 90, Mean Corpuscular Hemoglobin 29, Mean Corpuscular Hemoglobin Concent 33, Red Cell Distribution Width 13.7, Platelet Count 308, Mean Platelet Volume 9.1, Immature Granulocyte % (Auto) 1, Neutrophils (%) (Auto) 62, Lymphocytes (%) (Auto) 28, Monocytes (%) (Auto) 7, Eosinophils (%) (Auto) 2, Basophils (%) (Auto) 1, Neutrophils # (Auto) 4.5, Lymphocytes # (Auto) 2.1, Monocytes # (Auto) 0.5, Eosinophils # (Auto) 0.1, Basophils # (Auto) 0.0, Immature Granulocyte # (Auto) 0.1, Sodium Level 141, Potassium Level 4.1, Chloride Level 106, Carbon Dioxide Level 22, Anion Gap 13, Blood Urea Nitrogen 19H, Creatinine 0.89, Estimat Glomerular Filtration Rate 93, BUN/Creatinine Ratio 21, Glucose Level 136H, Calcium Level 9.2, Corrected Calcium 9.0, Total Bilirubin 0.5, Aspartate Amino Transf (AST/SGOT) 20, Alanine Aminotransferase (ALT/SGPT) 43, Alkaline Phosphatase 51, Total Protein 7.5, Albumin 4.2 10/22/21 10:55: Glucometer 133H 10/22/21 15:35: Glucometer 115H 10/22/21 20:37: Glucometer 156H 10/23/21 05:35: Glucometer 134H 10/23/21 10:45: Glucometer 122H 10/23/21 15:18: Glucometer 123H 10/23/21 20:38: Glucometer 144H 10/24/21 05:42: Glucometer 128H 10/24/21 11:53: Glucometer 118H 10/24/21 16:46: Glucometer 109 10/24/21 20:17: Glucometer 136H 10/25/21 05:59: Glucometer 127H 10/25/21 11:36: Glucometer 126H Pending Labs Laboratory Tests 10/17/21 15:35: Glucometer 161 10/17/21 20:01: Glucometer 140 10/18/21 06:14: Glucometer 169 10/18/21 08:14: White Blood Count 9.7, Red Blood Count 4.54, Hemoglobin 13.5, Hematocrit 41, Mean Corpuscular Volume 89, Mean Corpuscular Hemoglobin 30, Mean Corpuscular Hemoglobin Concent 33, Red Cell Distribution Width 13.5, Platelet Count 239, Mean Platelet Volume 9.1, Immature Granulocyte % (Auto) 0, Neutrophils (%) (Auto) 80, Lymphocytes (%) (Auto) 13, Monocytes (%) (Auto) 6, Eosinophils (%) (Auto) 1, Basophils (%) (Auto) 0, Neutrophils # (Auto) 7.7, Lymphocytes # (Auto) 1.2, Monocytes # (Auto) 0.6, Eosinophils # (Auto) 0.1, Basophils # (Auto) 0.0, Immature Granulocyte # (Auto) 0.0, Sodium Level 137, Potassium Level 4.3, Chloride Level 104, Carbon Dioxide Level 25, Anion Gap 8, Blood Urea Nitrogen 14, Creatinine 0.79, Estimat Glomerular Filtration Rate 96, BUN/Creatinine Ratio 18, Glucose Level 218, Calcium Level 8.7, Corrected Calcium 8.9, Total Bilirubin 1.2, Aspartate Amino Transf (AST/SGOT) 17, Alanine Aminotransferase (ALT/SGPT) 31, Alkaline Phosphatase 49, Total Protein 6.6, Albumin 3.7 10/18/21 10:58: Glucometer 136 10/18/21 16:10: Glucometer 137 10/18/21 20:15: Glucometer 140 10/19/21 05:31: Glucometer 115 10/19/21 10:30: Glucometer 129 10/19/21 15:44: Glucometer 104 10/19/21 20:58: Glucometer 117 10/20/21 06:34: Glucometer 128 10/20/21 10:39: Glucometer 103 10/20/21 15:11: Glucometer 131 10/20/21 20:19: Glucometer 122 10/21/21 07:01: Glucometer 129 10/21/21 11:45: Glucometer 100 10/21/21 15:27: Glucometer 137 10/21/21 20:22: Glucometer 120 10/22/21 05:45: White Blood Count 7.3, Red Blood Count 5.02, Hemoglobin 14.7, Hematocrit 45, Mean Corpuscular Volume 90, Mean Corpuscular Hemoglobin 29, Mean Corpuscular Hemoglobin Concent 33, Red Cell Distribution Width 13.7, Platelet Count 308, Mean Platelet Volume 9.1, Immature Granulocyte % (Auto) 1, Neutrophils (%) (Auto) 62, Lymphocytes (%) (Auto) 28, Monocytes (%) (Auto) 7, Eosinophils (%) (Auto) 2, Basophils (%) (Auto) 1, Neutrophils # (Auto) 4.5, Lymphocytes # (Auto) 2.1, Monocytes # (Auto) 0.5, Eosinophils # (Auto) 0.1, Basophils # (Auto) 0.0, Immature Granulocyte # (Auto) 0.1, Sodium Level 141, Potassium Level 4.1, Chloride Level 106, Carbon Dioxide Level 22, Anion Gap 13, Blood Urea Nitrogen 19, Creatinine 0.89, Estimat Glomerular Filtration Rate 93, BUN/Creatinine Ratio 21, Glucose Level 136, Calcium Level 9.2, Corrected Calcium 9.0, Total Bilirubin 0.5, Aspartate Amino Transf (AST/SGOT) 20, Alanine Aminotransferase (ALT/SGPT) 43, Alkaline Phosphatase 51, Total Protein 7.5, Albumin 4.2 10/22/21 10:55: Glucometer 133 10/22/21 15:35: Glucometer 115 10/22/21 20:37: Glucometer 156 10/23/21 05:35: Glucometer 134 10/23/21 10:45: Glucometer 122 10/23/21 15:18: Glucometer 123 10/23/21 20:38: Glucometer 144 10/24/21 05:42: Glucometer 128 10/24/21 11:53: Glucometer 118 10/24/21 16:46: Glucometer 109 10/24/21 20:17: Glucometer 136 10/25/21 05:59: Glucometer 127 10/25/21 11:36: Glucometer 126 Discharge Home Medications: Active Scripts Active Levetiracetam 500 Mg Tablet 500 Mg PO BID HYDROcodone/APAP 5 MG/325 MG TAB (Acetaminophen/Hydrocodone Bitart) 1 Tab Tab 1 Ea PO Q4H PRN Reported Icaps Tablet (B2/Vit A,C & E/Lut/Zeaxanth/Mn) 3,300-200 Tablet.er 1 Each PO DAILY Tadalafil 5 Mg Tablet 5 Mg PO 1800 W/MEAL Multivitamin 1 Each Tablet 1 Each PO DAILY Jardiance (Empagliflozin) 10 Mg Tablet 10 Mg PO DAILY Carvedilol 12.5 Mg Tablet 12.5 Mg PO BID WITH MEALS Flomax (Tamsulosin HCl) 0.4 Mg Cap 0.4 Mg PO HS Metformin HCl 1,000 Mg Tablet 1,000 Mg PO BID WITH MEALS Lisinopril 20 Mg Tablet 20 Mg PO 1800 W/MEAL Simvastatin 20 Mg Tablet 20 Mg PO 1800 W/MEAL Instructions to patient/family Please see electronic discharge instructions given to patient. Diagnosis/Problems Diagnosis/Problems (1) Subdural hematoma Clinical Quality Measures DVT/VTE Risk/Contraindication: Contraindications-Pharm: Other *list below* Other: SRINIVAS Kitchen DO Oct 25, 2021 05:25
[2021-10-25] MEDS: MULTIVIT W/MINERALS TAB (THERAGRAN M) PO SCH (06:00)
[2021-10-25] MEDS: inSUlin ASPART (NovoLOG) 1 UNIT/0.01 ML (CHARGE PER UNIT) SC SCH ×2 (06:00→11:46)
[2021-10-25 07:43] VITALS: BP 113/62
[2021-10-25] MEDS: HYDROcodone/APAP 5 MG/325 MG (LORTAB) TAB PO PRN (07:55)
[2021-10-25] MEDS: DOCUSATE SODIUM 100 MG (COLACE) CAP PO SCH (08:07)
[2021-10-25] MEDS: metFORMIN 500 MG (GLUCOPHAGE) TAB PO SCH (08:08)
[2021-10-25] MEDS: SENNA W/DOCUSATE (SENOKOT S) TABLET PO SCH (08:08)
[2021-10-25] MEDS: EMPAGLIFLOZIN 10 MG TABLET (JARDIANCE) PO SCH (08:08)
[2021-10-25] MEDS: lisINopril 20 MG (PRINIVIL) TABLET PO SCH (08:08)
[2021-10-25] MEDS: TAMSULOSIN 0.4 MG (FLOMAX) CAP PO SCH (08:08)
[2021-10-25] MEDS: polyethylene glycoL POWDER 17 GM (MIRALAX) PACK PO SCH (08:10)
[2021-10-25] MEDS: HYDROCORTISONE 2.5% CREAM (ANUSOL-HC) 30 GM TOP SCH (08:10)
--- NOTE | 2021-10-25 10:13 | Diagnostic Imaging Report ---
PROCEDURE: CT head without contrast. TECHNIQUE: Multiple contiguous axial images were obtained through the brain without the use of intravenous contrast. Auto Exposure Controls were utilized during the CT exam to meet ALARA standards for radiation dose reduction. INDICATION: Prior history of stroke and intracranial hemorrhage. No prior CT brain studies are available for comparison. There are primarily low density subdural collections along the frontal and parietal convexities bilaterally measuring up to a thickness of approximately 11 mm on the right and 8 mm on the left. There is a small amount of gas intracranially as well. Patient has had elijah holes placed bilaterally with evacuation of the subdural collections. There is some minimal higher density component to the subdural collection on the right consistent with some mild acute blood. No midline shift is seen. There is no evidence of hydrocephalus. Cisterns are patent. Visualized paranasal sinuses are clear. IMPRESSION: Postoperative changes bilaterally with bilateral frontal elijah holes with previous evacuation of subdural collections. There are some low-density subdural collections along the cerebral convexities bilaterally consistent with chronic subdurals. There is some minimal acute component in the subdural collection on the right. No mass effect or midline shift is identified. Dictated by: Dictated on workstation # [id number]
--- NOTE | 2021-10-25 11:39 | Therapy Team Discharge Summary ---
Therapy Discharge Summary Discharge Recommendations Date of Discharge Physical Therapy Patient came to rehab post bilateral SDH, elijah holes. Upon evaluation patient performs rolling with independence, supine to sit min assist, sit to supine independent, sit <-> stand and transfers CGA, car transfer CGA, ambulate 200' with a rolling walker with CGA (including 50' with at least 2 turns of 90 degrees and 10' over an uneven surface), can go up and down 4 steps using 2 handrails with CGA, and can product picker an object from the floor with a beef cattle farmer with CGA. Patient has been performing bed mobility and transfer training, balance and endurance training, functional strengthening, stair training, gait training, and education. Patient has made good progress and has met all of his oysterman goals. Now, patient performs bed mobility and transfers with independence, car transfer independent, ambulates 1000' with a single point cane with independence (including 50' with at least 2 turns of 90 degrees and 10' over an uneven surface), can go up and down 12 steps using 1 handrail with SBA, and can product picker an object from the floor with independence. Patient is being discharged from this facility today and will be discharged from PT at this time. Roll Left to Right (QC): 6 Sit to Lying (QC): 6 Lying to Sitting/Side of Bed(Q: 6 Sit to Stand (QC): 6 Chair/Dli-xi-Enbib Xfer(QC): 6 Toilet Transfer (QC): 6 Car Transfer (QC): 6 Does the Patient Walk: Yes Mode of Locomotion: Walk Anticipated Mode of Locomotion: Walk Walk 10 feet (QC): 6 Walk 50 ft with 2 Turns(QC): 6 Walk 150 ft (QC): 6 Walking 10ft on uneven surface: 6 Distance: 200' Gait Assistive Device: Cane Single Point Does the Pt Use a Wheelchair: No Wheel 50 ft with 2 turns (QC): 9 Wheel 150 ft (QC): 6 Type of Wheelchair: N/A #of Steps: 4 1 Step (curb) (QC): 5 4 Steps (QC): 5 12 Steps (QC): 5 Balance Sitting Static: Normal Balance Sitting Dynamic: Normal Balance-Standing Static: Fair Picking up an Object (QC): 6 Occupational Therapy Decreased Activ Tolerance, Decreased UE Strength, Impaired I ADL's Eating (QC): 6 Oral Hygiene (QC): 6 Shower/Bathe Self (QC): 6 Upper Body Dressing (QC): 6 Lower Body Dressing (QC): 6 On/Off Footwear (QC): 5 (set up for rafael hose only, indep socks/shoes) Toileting Hygiene (QC): 6 PT Asparagus Buncher Goals Asparagus Buncher Goals PT Long-Term Goals Time Frame: Nov 07, 2021 Roll Left to Right (QC): 6 Sit to Lying (QC): 6 Lying-Sitting on Side/Bed(QC): 6 Sit to Stand (QC): 6 Chair/Lgp-hl-Sawiq Xfer(QC): 6 Car Transfer (QC): 6 Does the Patient Walk: Yes Walk 10 feet (QC): 6 Walk 10ft-Uneven Surface(QC): 6 Walk 50ft with 2 Turns (QC): 6 Walk 150 ft (QC): 6 Wheel 50 feet with 2 turns (QC: 9 1 Step (curb) (QC): 4 (SBA) 4 Steps (QC): 4 (SBA) 12 Steps (QC): 4 (SBA) Picking up an Object (QC): 6 OT Asparagus Buncher Goals Asparagus Buncher Goals Time Frame: Oct 30, 2021 Eating (QC): 6 (met) Oral Hygiene (QC): 6 (met) Shower/Bathe Self (QC): 5 (met) Upper Body Dressing (QC): 6 (met) Lower Body Dressing (QC): 6 (met) On/Off Footwear (QC): 6 (met, set up for rafael hose only) Toileting Hygiene (QC): 6 (met) Toilet/Commode Transfer (QC): 6 1=Demonstrate adherence to instructed precautions during ADL tasks. 2=Patient will verbalize/demonstrate understanding of assistive devices/modific ations for ADL. 3=Patient will improve strength/tolerance for activity to enable patient to perform ADL's. SPENCER PÉREZ PT Oct 25, 2021 11:39
--- NOTE | 2021-10-25 13:38 | Therapy Team Discharge Summary ---
Therapy Discharge Summary Discharge Recommendations Date of Discharge Therapy D/C Recommendations: Home w/ Family Support Physical Therapy Roll Left to Right (QC): 6 Sit to Lying (QC): 6 Lying to Sitting/Side of Bed(Q: 6 Sit to Stand (QC): 6 Chair/Jih-ow-Bzpxs Xfer(QC): 6 Toilet Transfer (QC): 6 Car Transfer (QC): 6 Does the Patient Walk: Yes Mode of Locomotion: Walk Anticipated Mode of Locomotion: Walk Walk 10 feet (QC): 6 Walk 50 ft with 2 Turns(QC): 6 Walk 150 ft (QC): 6 Walking 10ft on uneven surface: 6 Distance: 200' Gait Assistive Device: Cane Single Point Does the Pt Use a Wheelchair: No Wheel 50 ft with 2 turns (QC): 9 Wheel 150 ft (QC): 6 Type of Wheelchair: N/A #of Steps: 4 1 Step (curb) (QC): 5 4 Steps (QC): 5 12 Steps (QC): 5 Balance Sitting Static: Normal Balance Sitting Dynamic: Normal Balance-Standing Static: Fair Picking up an Object (QC): 6 Occupational Therapy Pt admitted to [facility] s/p bilateral SDH, elijah holes. At time of evaluation, pt was SBA for oral care, toileting, set up for bathing, upper body dressing, and lower body dressing and indep with footwear. During his rehab stay, OT focused on balance, endurance, strengthening, safety, and energy conservation in order to improve performance and independence in adls and functional mobility. Pt made good progress and met all of his usp goals. See below for current levels of assist. Pt will be discharging from this facility today and will be discharged from OT at this time. Decreased Activ Tolerance, Decreased UE Strength, Impaired I ADL's Eating (QC): 6 Oral Hygiene (QC): 6 Shower/Bathe Self (QC): 6 Upper Body Dressing (QC): 6 Lower Body Dressing (QC): 6 On/Off Footwear (QC): 5 (set up for rafael hose only, indep socks/shoes) Toileting Hygiene (QC): 6 PT Group Home Goals Group Home Goals PT Group Home Goals Time Frame: Nov 07, 2021 Roll Left to Right (QC): 6 Sit to Lying (QC): 6 Lying-Sitting on Side/Bed(QC): 6 Sit to Stand (QC): 6 Chair/Ska-jn-Qzobh Xfer(QC): 6 Car Transfer (QC): 6 Does the Patient Walk: Yes Walk 10 feet (QC): 6 Walk 10ft-Uneven Surface(QC): 6 Walk 50ft with 2 Turns (QC): 6 Walk 150 ft (QC): 6 Wheel 50 feet with 2 turns (QC: 9 1 Step (curb) (QC): 4 (SBA) 4 Steps (QC): 4 (SBA) 12 Steps (QC): 4 (SBA) Picking up an Object (QC): 6 OT Group Home Goals Group Home Goals Time Frame: Oct 30, 2021 Eating (QC): 6 (met) Oral Hygiene (QC): 6 (met) Shower/Bathe Self (QC): 5 (met) Upper Body Dressing (QC): 6 (met) Lower Body Dressing (QC): 6 (met) On/Off Footwear (QC): 6 (met, set up for rafael hose only) Toileting Hygiene (QC): 6 (met) Toilet/Commode Transfer (QC): 6 1=Demonstrate adherence to instructed precautions during ADL tasks. 2=Patient will verbalize/demonstrate understanding of assistive devices/modifications for ADL. 3=Patient will improve strength/tolerance for activity to enable patient to perform ADL's. Almaz Shultz OT Oct 25, 2021 13:38
[2021-10-25 14:53] VITALS: BP 113/62
== END 2021-10-25 13:45 | disposition home health service (06) | DRG 949 ==
PROVIDERS: ADMIT Internal Medicine; ATTEND Internal Medicine
DX: Z48.89 Encounter for other specified surgical aftercare (principal); I62.01 Nontraumatic acute subdural hemorrhage; I62.03 Nontraumatic chronic subdural hemorrhage; I47.2 Ventricular tachycardia; I48.21 Permanent atrial fibrillation; D68.9 Coagulation defect, unspecified; I10 Essential (primary) hypertension; E78.00 Pure hypercholesterolemia, unspecified; E11.9 Type 2 diabetes mellitus without complications; H40.9 Unspecified glaucoma; G47.33 Obstructive sleep apnea (adult) (pediatric); M19.90 Unspecified osteoarthritis, unspecified site; K64.9 Unspecified hemorrhoids; K59.09 Other constipation; Z85.46 Personal history of malignant neoplasm of prostate; Z79.84 Long term (current) use of oral hypoglycemic drugs; Z79.899 Other long term (current) drug therapy
CPT/HCPCS: 36415; 70450; 80053; 82947; 85025

== ENCOUNTER 2022-07-05 10:29 | Outpatient (RCR) | payer MEDICARE, OTHER ==
[~2022-07-05 10:29] MED LIST changes: -ALPRAZolam 0.25 MG (XANAX) TAB PO PRN; +ASPI-1238 PO; -B2/V1TAB PO; +B2/V1TAB2 PO; -BISACODYL 10 MG SUPP (DULCOLAX) PR PRN; -CALCIUM CARBONATE 500 MG (TUMS) TAB.CHEW PO PRN; -DOCUSATE SODIUM 100 MG (COLACE) CAP PO PRN; -FLEET ENEMA ADULT 1 EA BTL PR PRN; -LACTULOSE SYRUP 10GM/15ML (ENULOSE) 30ML UDC PO PRN; -LOPERAMIDE 2 MG (IMODIUM) TABLET PO PRN; -ONDANSETRON 4 MG (ZOFRAN) ORAL DISSOLVE TAB PO PRN; -[UNRECOGNIZED DRUG - REMARK] PO SCH; -diphenhydrAMINE 25 MG TAB (BENADRYL) PO PRN; -guaiFENesin/CODEINE (ROBITUSSIN AC) 10ML UDC PO PRN
== END 2022-07-14 ==
LOC: ONC 10:29
PROVIDERS: ATTEND Radiology Radiation Oncology
DX: Z01.89 Encounter for other specified special examinations (principal)
CPT/HCPCS: 36415; 84153

== ENCOUNTER 2022-12-24 09:21 | Outpatient (RCR) | payer MEDICARE, OTHER | END 2023-01-14 | disposition home or self-care (01) | LOC: ONC 09:21 | PROVIDERS: ATTEND Radiology Radiation Oncology | DX: C61 Malignant neoplasm of prostate (principal) | CPT/HCPCS: 36415; 84153 ==